=== PATIENT | female | born 1945 | race Caucasian/White ===

== ENCOUNTER 2017-08-13 13:33 | Inpatient (IN) | payer OTHER ==
--- NOTE | 2017-08-13 14:05 | PDOC ---
Attending Attestation - Resident Resident Name: Collin Olivares - HPI HPI: 08/29/17 21:41 Pt presents to the ED complaining of generalized body swelling and shortness of breath. Reports a weight gain of 30 lbs and a elevation in her creatinine. patient was sent in by Dr. Louie for admission. - Physicial Exam PE: 08/29/17 21:44 Agree with resident exam. Patient is in no acute distress. Lungs with scattered rales. + 2 pitting edema to knee bilaterally. - Medical Decision Making 08/29/17 21:45 pt presents to the ED after sent in by Dr. Louie for anasarca. BNP is elevated. Will admit for CHF.
--- NOTE | 2017-08-13 14:33 | PDOC ---
History of Present Illness - General Chief Complaint: Congestive Heart Failure Stated Complaint: SOB, CONGESTIVE HEART FAILURE Time Seen by Provider: 08/13/17 13:56 History Source: Patient, Other (Note from sap administrator) Exam Limitations: No Limitations - History of Present Illness Initial Comments: 08/13/17 14:21 The patient is a 71F with a PMH of T2Dm, hypertriglyceridemia, HTN, and hyperuricemia who presents to the ER with complaints of worsening OLIVER, orthopnea , and worsening swelling. The patient was evaluated by Dr. Louie, cardiology, who sent her to the ER for further workup. The patient states that she has had 30 lbs of weight gain over the past month and has had swelling throughout her body in addition to weeping exudates. She denies any fever, chills, cough, numbness, tingling, weakness, CP. She denies any history of CHF. Past History - Past Medical History Allergies/Adverse Reactions: Allergies Allergy/AdvReac Type Severity Reaction Status Date / Time shellfish derived Allergy Verified 08/13/17 13:35 Home Medications: Ambulatory Orders Alendronate Sodium [Fosamax] 10 mg PO WEEKLY 09/19/15 Allopurinol [Zyloprim -] 100 mg PO DAILY 09/19/15 Amlodipine Besylate [Norvasc -] 10 mg PO DAILY 09/19/15 Fenofibrate,Micronized [Fenofibrate] 134 mg PO DAILY 09/19/15 Gabapentin [Neurontin -] 100 mg PO DAILY 09/19/15 Ibuprofen [Advil -] 400 mg PO PRN 09/19/15 Insulin Aspart [Novolog Flexpen] 100 unit SQ BID 09/19/15 Magnesium Oxide/Magnesium [Magnesium 300 mg Capsule] 1 mg PO DAILY 09/19/15 Multivitamin with Minerals [Icaps Plus] 1 each PO DAILY 09/19/15 Potassium 1 mg PO DAILY 09/19/15 Sitagliptin Phos/Metformin HCl [Janumet 50-1,000 mg Tablet] 1 each PO DAILY Omeprazole [Prilosec] 40 mg PO DAILY #60 capsule. 09/20/15 Anemia: No Asthma: No Cancer: Yes (CERVICAL, rt leg melanoma) Cardiac Disorders: No CVA: No COPD: No CHF: No Dementia: No Diabetes: Yes (diabetic neuropathy) GI Disorders: Yes (GASTRIC POLYPS) Disorders: Yes (ACUTE CKD) HTN: Yes Hypercholesterolemia: Yes Liver Disease: No Seizures: No Thyroid Disease: Yes - Surgical History Abdominal Surgery: No Appendectomy: Yes Cardiac Surgery: No Cholecystectomy: Yes Lung Surgery: No Neurologic Surgery: No Orthopedic Surgery: No - Suicide/Smoking/Psychosocial Hx Smoking History: Never smoked Have you smoked in the past 12 months: No Information on smoking cessation initiated: No Hx Alcohol Use: No Drug/Substance Use Hx: No Substance Use Type: None Hx Substance Use Treatment: No Review of Systems - Review of Systems Able to Perform ROS?: Yes Comments:: 08/13/17 15:28 GENERAL/CONSTITUTIONAL: No fever or chills. No weakness. HEAD, EYES, EARS, NOSE AND THROAT: No change in vision. No ear pain or discharge. No sore throat. CARDIOVASCULAR: Positive for OLIVER, orthopnea. No chest pain, palpitations, or lightheadedness. RESPIRATORY: No cough, wheezing, or hemoptysis. GASTROINTESTINAL: No nausea, vomiting, diarrhea, constipation, or abdominal pain. GENITOURINARY: No dysuria, frequency, hematuria, or change in urination. MUSCULOSKELETAL: No joint or muscle swelling or pain. No neck or back pain. SKIN: Positive for weeping exudates on legs with diffuse swelling. NEUROLOGIC: No headache, numbness, tingling, weakness, loss of consciousness, or change in strength/sensation. ENDOCRINE: No increased thirst. No abnormal weight change. HEMATOLOGIC/LYMPHATIC: No anemia, easy bleeding, or history of blood clots. ALLERGIC/IMMUNOLOGIC: No hives or skin allergy. Is the patient limited Maltese proficient: No *Physical Exam - Vital Signs Last Vital Signs Temp Pulse Resp BP Pulse Ox 98.0 F 82 18 148/68 100 08/13/17 13:36 08/13/17 13:36 08/13/17 13:36 08/13/17 13:36 08/13/17 13:36 - Physical Exam Comments: 08/13/17 15:29 GENERAL: Well developed, well nourished. Awake and alert. No acute distress. HEENT: Normocephalic, atraumatic. Hearing grossly normal. Moist mucous membranes. PERRLA, EOMI. No conjunctival pallor. Sclera are non-icteric. NECK: Supple. Full ROM. CARDIOVASCULAR: Regular rate and rhythm. No murmurs, rubs, or gallops. Distal pulses are 2+ and symmetric. PULMONARY: No evidence of respiratory distress. Lungs clear to auscultation bilaterally. No wheezing, rales or rhonchi. ABDOMINAL: Soft. Non-tender. Non-distended. No rebound or guarding. MUSCULOSKELETAL: Normal range of motion at all joints. No bony deformities or tenderness. EXTREMITIES: No cyanosis. No clubbing. 3-4+ edema in LE, 1+ in abdomen. Weeping exudates present. No calf tenderness. SKIN: Warm and dry. Normal capillary refill. No rashes. No jaundice. NEUROLOGICAL: Alert, awake, appropriate. Cranial nerves 2-12 intact. Normal speech. Gait is normal without ataxia. PSYCHIATRIC: Cooperative. Good eye contact. Appropriate mood and affect. ED Treatment Course - LABORATORY CBC & Chemistry Diagram: 08/13/17 14:46 08/13/17 14:46 - RADIOLOGY Radiology Studies Ordered: Category Date Time Status CHEST X-RAY PORTABLE* [RAD] Stat Radiology 08/13/17 14:20 Ordered Medical Decision Making - Medical Decision Making 08/13/17 15:31 The patient is a 71F with a PMH of HTN, T2DM, and hypertriglyceridiemia who presents from Dr. Louie's office for further evaluation of newly diagnosed CHF. The patient has had an increase in her Cr over the past 2 weeks. Will redraw labs, order CXR, and monitor patient closely. 08/13/17 16:22 BNP significant for 1100. Cr at 2.0 down from 2.2 on 08/12. Will give [address] Rogers paged for admission. 08/13/17 16:39 I have endorsed the patient to Dr. Rogers for admission. Will consult Dr. Louie. *DC/Admit/Observation/Transfer Diagnosis at time of Disposition: CHF (congestive heart failure) Qualifiers: Heart failure type: unspecified Heart failure chronicity: unspecified Qualified Code(s): I50.9 - Heart failure, unspecified - Discharge Dispostion Condition at time of disposition: Stable Decision to Admit order: Yes - Referrals Referrals: Vamshi Rogers MD [Primary Care Provider] - - Patient Instructions - Post Discharge Activity
--- NOTE | 2017-08-13 14:55 | EKG ---
Test Reason : Blood Pressure : / mmHG Vent. Rate : 077 BPM Atrial Rate : 077 BPM P-R Int : 184 ms QRS Dur : 086 ms QT Int : 374 ms P-R-T Axes : 044 -58 061 degrees QTc Int : 423 ms NORMAL SINUS RHYTHM LEFT AXIS DEVIATION LOW VOLTAGE QRS POSSIBLE anterior infarct ABNORMAL ECG Confirmed by MD Dereck, Alan ([id number]) on 08/13/2017 2:55:29 PM Referred By: Confirmed By:Alan Harden MD
[2017-08-13 15:13] LABS: BASO % 0.7 % (0-2.0); EOS % 4.1 % (0-4.5); HEMATOCRIT 37.6 % (32.4-45.2); HEMOGLOBIN 12.6 GM/dL (10.7-15.3); LYMPH % 21.9 % (8-40); MCH 29.8 pg (25.7-33.7); MCHC 33.4 g/dl (32.0-36.0); MEAN CELL VOLUME 89.1 fl (80-96); MEAN PLT VOLUME 8.5 fl (7.5-11.1); MONO % 9.8 % (3.8-10.2); NEUT % 63.5 % (42.8-82.8); PLATELET COUNT 233 K/MM3 (134-434); RBC 4.22 M/mm3 (3.60-5.2); RDW 15.4 % (11.6-15.6); WHITE BLOOD COUNT 6.5 K/mm3 (4.0-10.0)
[2017-08-13 15:45] LABS: INR 1.13 (0.82-1.09); PROTHROMBIN TIME (PATIENT) 12.8 SEC (9.7-13.0)
[2017-08-13 15:58] LABS: ALBUMIN 1.4 g/dl (3.4-5.0); ANION GAP 5 (8-16); BLOOD UREA NITROGEN 40 mg/dL (7-18); CALCIUM 7.6 mg/dL (8.5-10.1); CHLORIDE 112 mmol/L (98-107); CO2 26 mmol/L (21-32); GLUCOSE,RANDOM 92 mg/dL (74-106); SGPT/ALT 17 U/L (12-78); SODIUM 143 mmol/L (136-145)
[2017-08-13 16:02] LABS: ALK PHOS 46 U/L (45-117); BILIRUBIN,TOTAL 0.2 mg/dL (0.2-1.0); N-TERMINAL BNP 1100.94 pg/ml (5-125); TOT PROT 4.6 g/dl (6.4-8.2)
[2017-08-13 16:05] LABS: POTASSIUM 5.6 mmol/L (3.5-5.1); SGOT/AST 28 U/L (15-37)
[2017-08-13] MEDS ORDERED: FUROSEMIDE 40 MG/4 ML INJECTABLE VIAL IVPUSH ONE (16:22)
[2017-08-13] MEDS ORDERED: FUROSEMIDE 40 MG/4 ML INJECTABLE VIAL ONE (16:56)
--- NOTE | 2017-08-13 18:58 | CON.CARD ---
Consult Consult Specialty:: Cardiology Referred by:: Vamshi Rogers MD Reason for Consultation:: Anasarca despite oral diuretics - History of Present Illness Chief Complaint: Dyspnea on exertion, lower extremity edema History of Present Illness: 71-year-old female with cardiovascular risk factors of insulin- dependent type 2 diabetes mellitus, hypertriglyceridemia, hypertension, hyperuricemia initially reported increasing dyspnea on exertion, orthopnea, paroxysmal nocturnal dyspnea, bilateral lower extremity edema and inadvertent weight gain over 20 lbs last several weeks, she admitted to taking fenoprofen for pain since discontinued. She denies chest tightness, near or true syncope, palpitations, reports medication and diet compliance. She was initially started on Lasix 40 bid, found to be hypothyroid, reported cold intolerance, started synthroid 50 qd, but dose decreased due to abdominal discomfort and diarrhea. Has not improved on oral diuretics and referred to hospital for IV diuresis. - History Source History Provided By: Patient Limitations to Obtaining History: No Limitations - Past Medical History Cardio/Vascular: Yes: HTN, Hyperlipdemia Endocrine: Yes: Diabetes Mellitus - Alcohol/Substance Use Hx Alcohol Use: No - Smoking History Smoking history: Never smoked Have you smoked in the past 12 months: No Home Medications - Allergies Allergies/Adverse Reactions: Allergies Allergy/AdvReac Type Severity Reaction Status Date / Time shellfish derived Allergy Verified 08/13/17 13:35 - Home Medications Home Medications: Ambulatory Orders Alendronate Sodium [Fosamax] 10 mg PO WEEKLY 09/19/15 Allopurinol [Zyloprim -] 100 mg PO DAILY 09/19/15 Amlodipine Besylate [Norvasc -] 10 mg PO DAILY 09/19/15 Fenofibrate,Micronized [Fenofibrate] 134 mg PO DAILY 09/19/15 Gabapentin [Neurontin -] 100 mg PO DAILY 09/19/15 Ibuprofen [Advil -] 400 mg PO PRN 09/19/15 Insulin Aspart [Novolog Flexpen] 100 unit SQ BID 09/19/15 Magnesium Oxide/Magnesium [Magnesium 300 mg Capsule] 1 mg PO DAILY 09/19/15 Multivitamin with Minerals [Icaps Plus] 1 each PO DAILY 09/19/15 Potassium 1 mg PO DAILY 09/19/15 Sitagliptin Phos/Metformin HCl [Janumet 50-1,000 mg Tablet] 1 each PO DAILY Omeprazole [Prilosec] 40 mg PO DAILY #60 capsule. 09/20/15 Review of Systems - Review of Systems Cardiovascular: reports: Edema, Shortness of Breath Respiratory: reports: Exercise Intolerance, SOB on Exertion Vital Signs: Vital Signs Temperature 98.0 F 08/13/17 13:36 Pulse Rate 82 08/13/17 13:36 Respiratory Rate 18 08/13/17 13:36 Blood Pressure 148/68 08/13/17 13:36 O2 Sat by Pulse Oximetry (%) 98 08/13/17 15:06 Constitutional: Yes: No Distress, Calm Neck: Yes: Supple Respiratory: Yes: Regular, Diminished, Rales Gastrointestinal: Yes: Abdomen, Obese, Distention Cardiovascular: Yes: Regular Rate and Rhythm JVD: No Carotid Bruit: No Heart Sounds: Yes: S1, S2 Murmur: Yes: Systolic Murmur, Grade 1 Edema: Yes Edema: LLE: 3+, RLE: 3+ - Other Data Labs, Other Data: CBC, BMP 08/13/17 14:46 08/13/17 14:46 INR, PTT INR 1.13 (0.82-1.09) 08/13/17 14:46 Troponin, BNP 08/13/17 14:46 Troponin I < 0.02 B-Natriuretic Peptide 1100.94 H Troponin, BNP 08/13/17 14:46 Troponin I < 0.02 B-Natriuretic Peptide 1100.94 H NSR LAD Echo: Report Reviewed Imaging - Results Chest X-ray: Report Reviewed (Mild congestion) EKG: Report Reviewed (NSR LAD) Problem List - Problems (1) Acute on chronic diastolic (congestive) heart failure Code(s): I50.33 - ACUTE ON CHRONIC DIASTOLIC (CONGESTIVE) HEART FAILURE (2) Hypothyroidism Code(s): E03.9 - HYPOTHYROIDISM, UNSPECIFIED Qualifiers: Hypothyroidism type: unspecified Qualified Code(s): E03.9 - Hypothyroidism , unspecified (3) Mbemt-xp-upyjzki kidney injury Code(s): N17.9 - ACUTE KIDNEY FAILURE, UNSPECIFIED; N18.9 - CHRONIC KIDNEY DISEASE, UNSPECIFIED (4) Insulin dependent diabetes mellitus Code(s): E11.9 - TYPE 2 DIABETES MELLITUS WITHOUT COMPLICATIONS; Z79.4 - USP (CURRENT) USE OF INSULIN (5) Hypertensive cardiomyopathy Code(s): I11.9 - HYPERTENSIVE HEART DISEASE WITHOUT HEART FAILURE; I43 - CARDIOMYOPATHY IN DISEASES CLASSIFIED ELSEWHERE Qualifiers: Heart failure presence: with heart failure Qualified Code(s): I11.0 - Hypertensive heart disease with heart failure; I43 - Cardiomyopathy in diseases classified elsewhere; I43 - Cardiomyopathy in diseases classified elsewhere; I43 - Cardiomyopathy in diseases classified elsewhere; I43 - Cardiomyopathy in diseases classified elsewhere (6) Mixed hyperlipidemia Code(s): E78.2 - MIXED HYPERLIPIDEMIA (7) Hyperuricemia Code(s): E79.0 - HYPERURICEMIA W/O SIGNS OF INFLAM ARTHRIT AND TOPHACEOUS DIS Assessment/Plan 1. Acute diastolic heart failure referable to NSAID and 2. Hypothyroidism (untreated) 3. Acute on CKD with hyperkalemia referable to #1 4. Insulin-dependent type 2 diabetes mellitus 5. Hypertension 6. Mixed hyperlipidemia 7. Hyperuricemia RECOMMENDATIONS: 1. Continue Synthroid 50 ug daily as tolerated per TSH, Norvasc 5 qd, ASA 81 qd 2. F/u echocardiogram to assess LV and valve fxn already performed as outpatient 3. IV diuresis with monitor diuretic response, renal function and electrolytes 4. Hold Valsartan pending resolution of acute on chronic kidney injury and hyperkalemia. 5. Will address lipid abnormalities once euthyroid 6. Thank you for consultative opportunity
[2017-08-14] MEDS: LEVOTHYROXINE NA 50 MCG TABLET (FP) PO SCH (06:02)
[2017-08-14] MEDS: FUROSEMIDE 40 MG/4 ML INJECTABLE VIAL IVPUSH SCH ×2 (06:02→15:27)
--- NOTE | 2017-08-14 09:38 | HP ---
DATE OF ADMISSION: DATE OF DICTATION: 08/14/2017 This is a 71-year-old female known to have diabetes, hypertension, being followed by Dr. Louie with some weight gain and exertional dyspnea, so was sent to the emergency room, with a diagnosis of CHF. She was found to have leg edema, renal insufficiency, and CHF so got admitted. This morning she is saying that she is feeling better. PHYSICAL EXAMINATION: Vital Signs: BP 150/90, pulse 72, respirations 20, temperature 98. When she came in, her blood pressure was 170/85. HEENT: Unremarkable. Neck: Supple. No JVD. Lungs: Few bibasilar rales present. Heart: S1, S2 normal. No S3, S4. Abdomen: Soft and edematous. Legs: Edema present with cellulitis, right lower extremity. Neurologic: Examination grossly normal. LABORATORY REPORTS: WBC 6.5, hemoglobin 12.6, hematocrit 37. Chemistry: Sodium 143, potassium 5.6, chloride 112, BUN 40, creatinine 2. CPK 2794. Troponin negative. B-peptide 1100. TSH pending. Chest x-ray: Pulmonary congestion. EKG: Normal sinus rhythm. Low voltage QRS. Old anterior infarct. IMPRESSION: 1. Congestive heart failure. 2. Renal insufficiency. 3. Diabetes. 4. Obesity. 5. Cellulitis, right leg. PLAN: Cardiology consult, Dr. Louie. Nephrology, Dr. Azevedo. Will start antibiotics for cellulitis. Continue other medicines. Maverick [id number]
[2017-08-14] MEDS ORDERED: ceFAZolin SODIUM 1 GM VIAL ONE ×2 (09:45→17:23)
[2017-08-14] MEDS ORDERED: DEXTROSE 5%-WATER - 50 ML IVPB ONE ×2 (09:46→17:23)
[2017-08-14] MEDS: amLODIPine BESYLATE 5 MG TABLET (FP) PO SCH (10:35)
[2017-08-14] MEDS: ASPIRIN 81 MG CHEWABLE TABLETS PO SCH (10:35)
[2017-08-14] MEDS: HEPARIN NA (PORCINE) 5,000 UNITS/ML 1ML VIAL SQ SCH ×2 (10:35→21:50)
[2017-08-14] MEDS: CEFAZOLIN 1 GM in DEXTROSE 5%-WATER - 50 ML IVPB SCH ×2 (10:35→17:43)
[2017-08-14 10:42] LABS: CHLORIDE 111 mmol/L (98-107); POTASSIUM 5.5 mmol/L (3.5-5.1); SODIUM 144 mmol/L (136-145)
[2017-08-14] MEDS ORDERED: INSULIN SLIDING SCALE (NOVOLOG) 1 VIAL SQ SCH (11:00)
--- NOTE | 2017-08-14 11:07 | PN ---
Progress Note, Physician History of Present Illness: Brisk response after initiation of IV diuresis. Still with anasarca. - Current Medication List Current Medications: Active Medications Amlodipine Besylate (Norvasc -) 5 mg PO DAILY [facility] Last Admin: 08/14/17 10:35 Dose: 5 mg Aspirin (Asa -) 81 mg PO DAILY [facility] Last Admin: 08/14/17 10:35 Dose: 81 mg Furosemide (Lasix Injection -) 40 mg IVPUSH BID@0600,1400 [facility] Last Admin: 08/14/17 06:02 Dose: 40 mg Heparin Sodium (Porcine) (Heparin -) 5,000 unit SQ BID [facility] Last Admin: 08/14/17 10:35 Dose: 5,000 unit Cefazolin Sodium 1 gm/ (Dextrose) 50 mls @ 100 mls/hr IVPB Q8H-IV [facility] Last Admin: 08/14/17 10:35 Dose: 100 mls/hr Insulin Aspart (Novolog Vial Sliding Scale -) 1 vial SQ ACHS [facility] PRN Reason: Protocol Levothyroxine Sodium (Synthroid -) 50 mcg PO DAILY@0700 [facility] Last Admin: 08/14/17 06:02 Dose: 50 mcg - Objective Vital Signs: Vital Signs Temperature 98 F 08/14/17 10:29 Pulse Rate 79 08/14/17 10:29 Respiratory Rate 20 08/14/17 10:29 Blood Pressure 152/92 08/14/17 10:29 O2 Sat by Pulse Oximetry (%) 95 08/14/17 09:00 Constitutional: Yes: No Distress, Calm Neck: Yes: Supple Cardiovascular: Yes: Regular Rate and Rhythm Respiratory: Yes: Regular, Diminished Gastrointestinal: Yes: Distention Edema: Yes Edema: LLE: 3+, RLE: 3+ Labs: CBC, BMP 08/13/17 14:46 INR, PTT INR 1.13 (0.82-1.09) 08/13/17 14:46 - ....Imaging EKG: Report Reviewed (Tele: NSR) Problem List - Problems (1) Acute on chronic diastolic (congestive) heart failure Code(s): I50.33 - ACUTE ON CHRONIC DIASTOLIC (CONGESTIVE) HEART FAILURE (2) Hypothyroidism Code(s): E03.9 - HYPOTHYROIDISM, UNSPECIFIED Qualifiers: Hypothyroidism type: unspecified Qualified Code(s): E03.9 - Hypothyroidism , unspecified (3) Bxaln-ge-aflrkor kidney injury Code(s): N17.9 - ACUTE KIDNEY FAILURE, UNSPECIFIED; N18.9 - CHRONIC KIDNEY DISEASE, UNSPECIFIED (4) Insulin dependent diabetes mellitus Code(s): E11.9 - TYPE 2 DIABETES MELLITUS WITHOUT COMPLICATIONS; Z79.4 - GROUP HOME (CURRENT) USE OF INSULIN (5) Hypertensive cardiomyopathy Code(s): I11.9 - HYPERTENSIVE HEART DISEASE WITHOUT HEART FAILURE; I43 - CARDIOMYOPATHY IN DISEASES CLASSIFIED ELSEWHERE Qualifiers: Heart failure presence: with heart failure Qualified Code(s): I11.0 - Hypertensive heart disease with heart failure; I43 - Cardiomyopathy in diseases classified elsewhere; I43 - Cardiomyopathy in diseases classified elsewhere; I43 - Cardiomyopathy in diseases classified elsewhere; I43 - Cardiomyopathy in diseases classified elsewhere (6) Mixed hyperlipidemia Code(s): E78.2 - MIXED HYPERLIPIDEMIA (7) Hyperuricemia Code(s): E79.0 - HYPERURICEMIA W/O SIGNS OF INFLAM ARTHRIT AND TOPHACEOUS DIS Assessment/Plan Echo: August 09, 2017 Normal LV fxn, ao sclerosis, mild [place], [place], [place], [place], impaired relaxation with elevated filling pressures, diastolic dysfunction, mild LVH, no effusion 1. Acute diastolic heart failure referable to NSAID and 2. Hypothyroidism (untreated) 3. Acute on CKD with hyperkalemia referable to #1 4. Insulin-dependent type 2 diabetes mellitus 5. Hypertension 6. Mixed hyperlipidemia 7. Hyperuricemia RECOMMENDATIONS: 1. Continue Synthroid 50 ug daily as tolerated per TSH, Norvasc 5 qd, ASA 81 qd 2. F/u echocardiogram to assess LV and valve fxn already performed as outpatient 3. IV diuresis with monitor diuretic response, renal function and electrolytes 4. Hold Valsartan pending resolution of acute on chronic kidney injury and hyperkalemia. 5. Will address lipid abnormalities once euthyroid 6. DVT prophylaxis, empiric abx for cellulitis
[2017-08-14 12:08] LABS: ANION GAP 8 (8-16); BLOOD UREA NITROGEN 40 mg/dL (7-18); CALCIUM 8.1 mg/dL (8.5-10.1); CO2 25 mmol/L (21-32); CREATININE 2.1 mg/dL (0.55-1.02); GLUCOSE,RANDOM 137 mg/dL (74-106)
--- NOTE | 2017-08-14 12:36 | CONSULT ---
Consult - text type - Consultation Consultation Note: Renal Consult for PRECIOUS This is a 71 year old woman wit PMhx of Hypertension x 30 + years, DM Type 2 on insulin, Hypothyrodism, Hyperurecemia, Obesity who presented with SOB/OLIVER and increasing swelling and admitted for acute HF with PRECIOUS. Pt denies any history of CKD or kidney stones. Denies any flank pain or difficulty urinating. Was taking NSIADs chronically at home for management of right arm pain. No dark urine, dysuria. Pt recently stated on Lasix for management of LE edema. No recent Abx use, no rash. PMhx: as above Allergies: NKDA Family hx: NC Social Hx: No T/A/D ROS: as per HPI Home Medications Medication Instructions Recorded Alendronate Sodium [Fosamax] 10 mg PO WEEKLY 09/19/15 Allopurinol [Zyloprim -] 100 mg PO DAILY 09/19/15 Amlodipine Besylate [Norvasc -] 10 mg PO DAILY 09/19/15 Fenofibrate,Micronized 134 mg PO DAILY 09/19/15 [Fenofibrate] Gabapentin [Neurontin -] 100 mg PO DAILY 09/19/15 Multivitamin with Minerals [Icaps 1 each PO DAILY 09/19/15 Plus] Sitagliptin Phos/Metformin HCl 1 each PO DAILY 09/19/15 [Janumet 50-1,000 mg Tablet] Omeprazole [Prilosec] 40 mg PO DAILY #60 capsule. 09/20/15 Insulin (Novolog 70/30) [Novolog 18 units SQ BIDAC 08/13/17 Mix 70/30 Flexpen -] Vital Signs Temperature 98 F 08/14/17 10:29 Pulse Rate 79 08/14/17 10:29 Respiratory Rate 20 08/14/17 10:29 Blood Pressure 152/92 08/14/17 10:29 O2 Sat by Pulse Oximetry (%) 95 08/14/17 09:00 Intake & Output 08/11/17 08/12/17 08/13/17 08/14/17 23:59 23:59 23:59 23:59 Intake Total 510 Output Total 1300 Balance -790 Weight 147.418 kg 146.329 kg NAD awake and alert MMM, No JVD Neck supple RRR, No M/R Dec BS at right lung base, no wheeze, rales soft, obsese, NT/ND + LE edema, no cyanosis or clubbing CBC, BMP 08/13/17 14:46 08/14/17 06:25 Current Medications Amlodipine Besylate (Norvasc -) 5 mg PO DAILY [facility] Last Admin: 08/14/17 10:35 Dose: 5 mg Aspirin (Asa -) 81 mg PO DAILY [facility] Last Admin: 08/14/17 10:35 Dose: 81 mg Furosemide (Lasix Injection -) 40 mg IVPUSH BID@0600,1400 [facility] Last Admin: 08/14/17 06:02 Dose: 40 mg Furosemide (Lasix Injection -) 40 mg IVPUSH ONCE ONE Stop: 08/14/17 17:01 Heparin Sodium (Porcine) (Heparin -) 5,000 unit SQ BID [facility] Last Admin: 08/14/17 10:35 Dose: 5,000 unit Cefazolin Sodium 1 gm/ (Dextrose) 50 mls @ 100 mls/hr IVPB Q8H-IV [facility] Last Admin: 08/14/17 10:35 Dose: 100 mls/hr Insulin Aspart (Novolog Vial Sliding Scale -) 1 vial SQ ACHS [facility] PRN Reason: Protocol Levothyroxine Sodium (Synthroid -) 50 mcg PO DAILY@0700 [facility] Last Admin: 08/14/17 06:02 Dose: 50 mcg This is a 71 year old woman wit PMhx of Hypertension x 30 + years, DM Type 2 on insulin, Hypothyrodism, Hyperurecemia, Obesity who presented with SOB/OLIVER and increasing swelling and admitted for acute HF with PRECIOUS. #Acute Kidney injury likely due to renal hypoprofusion/ischemia due to NSAIDs + diuretics vs. AIN vs. obstruction #Anasarca/Acute HF #Hypertension #Hyperkalemia due to NSAIDs + renal insufficiency Check urine studies for FeUrea, UPCR Renal US to access kidney size and structure Continue Lasix 40mg IV BID Low K diet for now Repeat BMP in the evening to monitor hyperkalemia withhold any MARY JANE/ARB/NASIDs for now Continue Norvasc, can titrate to goal BP < 140/90 Low salt diet oral water intake as per thirst Thank you Will follow Arvind Lemus DO
[2017-08-14] MEDS: INSULIN SLIDING SCALE (NOVOLOG) 1 VIAL SQ SCH ×3 (15:26→21:51)
[2017-08-14 15:58] LABS: ANION GAP 5 (8-16); BLOOD UREA NITROGEN 39 mg/dL (7-18); CALCIUM 7.7 mg/dL (8.5-10.1); CHLORIDE 111 mmol/L (98-107); CO2 27 mmol/L (21-32); CREATININE 2.1 mg/dL (0.55-1.02); GLUCOSE,RANDOM 114 mg/dL (74-106); POTASSIUM 5.2 mmol/L (3.5-5.1); SODIUM 143 mmol/L (136-145)
[2017-08-14] MEDS ORDERED: FUROSEMIDE 40 MG/4 ML INJECTABLE VIAL IVPUSH ONE (17:00)
[2017-08-14 18:29] LABS: URINE APPEARANCE CLEAR; URINE BILIRUBIN NEGATIVE (<2.0 mg/dL); URINE COLOR LTYELLOW; URINE GLUCOSE (UA) 1+ (NEGATIVE); URINE KETONE NEGATIVE (NEGATIVE); URINE LEUK ESTERASE NEGATIVE (NEGATIVE); URINE NITRITE NEGATIVE (NEGATIVE); URINE UROBILINOGEN NEGATIVE mg/dL (0.2-1.0)
[2017-08-14 18:45] LABS: URINE PROTEIN 3+ (NEGATIVE)
[2017-08-14 19:09] LABS: URINE CREATININE 55.3 mg/dL (20-320)
[2017-08-14] MEDS ORDERED: GABAPENTIN 100 MG CAPSULE (FP) PO SCH (19:30)
[2017-08-14] MEDS: GABAPENTIN 300 MG CAPSULE (FP) PO SCH (19:56)
[2017-08-15] MEDS ORDERED: ceFAZolin SODIUM 1 GM VIAL ONE ×3 (01:21→17:53)
[2017-08-15] MEDS ORDERED: DEXTROSE 5%-WATER - 50 ML IVPB ONE ×3 (01:21→17:53)
[2017-08-15] MEDS: CEFAZOLIN 1 GM in DEXTROSE 5%-WATER - 50 ML IVPB SCH ×3 (01:37→18:17)
[2017-08-15] MEDS: LEVOTHYROXINE NA 50 MCG TABLET (FP) PO SCH (06:07)
[2017-08-15] MEDS: FUROSEMIDE 40 MG/4 ML INJECTABLE VIAL IVPUSH SCH ×3 (06:07→21:12)
[2017-08-15] MEDS: INSULIN SLIDING SCALE (NOVOLOG) 1 VIAL SQ SCH ×4 (06:07→23:00)
[2017-08-15] MEDS ORDERED: INSULIN (NOVOLOG) ASPART 100 UNITS/ML 10ML VIAL ONE ×3 (06:55→21:04)
[2017-08-15 07:41] LABS: ALBUMIN 1.5 g/dl (3.4-5.0); ANION GAP 7 (8-16); BLOOD UREA NITROGEN 37 mg/dL (7-18); CALCIUM 7.7 mg/dL (8.5-10.1); CHLORIDE 110 mmol/L (98-107); CO2 24 mmol/L (21-32); GLUCOSE,RANDOM 134 mg/dL (74-106); MAGNESIUM 2.3 mg/dL (1.8-2.4); PHOSPHOROUS 5.2 mg/dL (2.5-4.9); POTASSIUM 4.8 mmol/L (3.5-5.1); SGOT/AST 24 U/L (15-37); SGPT/ALT 15 U/L (12-78); SODIUM 141 mmol/L (136-145)
[2017-08-15 07:42] LABS: ALK PHOS 46 U/L (45-117); BILIRUBIN,TOTAL 0.2 mg/dL (0.2-1.0); TOT PROT 4.9 g/dl (6.4-8.2)
--- NOTE | 2017-08-15 09:11 | PN ---
Progress Note, Physician Chief Complaint: Feels better History of Present Illness: navid Sommers nephrology consult appreciated - Current Medication List Current Medications: Active Medications Amlodipine Besylate (Norvasc -) 5 mg PO DAILY [facility] Last Admin: 08/14/17 10:35 Dose: 5 mg Aspirin (Asa -) 81 mg PO DAILY [facility] Last Admin: 08/14/17 10:35 Dose: 81 mg Furosemide (Lasix Injection -) 40 mg IVPUSH BID@0600,1400 [facility] Last Admin: 08/15/17 06:07 Dose: 40 mg Gabapentin (Neurontin -) 300 mg PO DAILY [facility] Last Admin: 08/14/17 19:56 Dose: 300 mg Heparin Sodium (Porcine) (Heparin -) 5,000 unit SQ BID [facility] Last Admin: 08/14/17 21:50 Dose: 5,000 unit Cefazolin Sodium 1 gm/ (Dextrose) 50 mls @ 100 mls/hr IVPB Q8H-IV [facility] Last Admin: 08/15/17 01:37 Dose: 100 mls/hr Insulin Aspart (Novolog Vial Sliding Scale -) 1 vial SQ ACHS [facility] PRN Reason: Protocol Last Admin: 08/15/17 06:07 Dose: Not Given Levothyroxine Sodium (Synthroid -) 50 mcg PO DAILY@0700 [facility] Last Admin: 08/15/17 06:07 Dose: 50 mcg - Objective Vital Signs: Vital Signs Temperature 98.5 F 08/15/17 06:00 Pulse Rate 85 08/15/17 06:00 Respiratory Rate 24 08/15/17 06:00 Blood Pressure 175/88 08/15/17 06:00 O2 Sat by Pulse Oximetry (%) 96 08/14/17 21:00 Constitutional: Yes: No Distress Eyes: Yes: WNL HENT: Yes: WNL Neck: Yes: WNL Cardiovascular: Yes: WNL Respiratory: Yes: WNL Gastrointestinal: Yes: Distention ...Rectal Exam: Yes: Deferred Breast(s): Yes: WNL Musculoskeletal: Yes: Muscle Weakness Edema: Yes Edema: LLE: 1+, RLE: 1+ Wound/Incision: Yes: Open to air Psychiatric: Yes: Alert Labs: CBC, BMP 08/13/17 14:46 08/15/17 05:35 INR, PTT INR 1.13 (0.82-1.09) 08/13/17 14:46 Assessment/Plan Wt is down to 319lbs Continue IV lasix
[2017-08-15] MEDS: amLODIPine BESYLATE 5 MG TABLET (FP) PO SCH (09:50)
[2017-08-15] MEDS: HEPARIN NA (PORCINE) 5,000 UNITS/ML 1ML VIAL SQ SCH ×2 (09:50→21:12)
[2017-08-15] MEDS: GABAPENTIN 300 MG CAPSULE (FP) PO SCH (09:50)
[2017-08-15] MEDS: ASPIRIN 81 MG CHEWABLE TABLETS PO SCH (09:50)
--- NOTE | 2017-08-15 09:53 | PN ---
Progress Note, Physician History of Present Illness: Brisk response after initiation of IV diuresis. Anasarca improving. - Current Medication List Current Medications: Active Medications Amlodipine Besylate (Norvasc -) 5 mg PO DAILY [facility] Last Admin: 08/15/17 09:50 Dose: 5 mg Aspirin (Asa -) 81 mg PO DAILY [facility] Last Admin: 08/15/17 09:50 Dose: 81 mg Furosemide (Lasix Injection -) 40 mg IVPUSH BID@0600,1400 [facility] Last Admin: 08/15/17 06:07 Dose: 40 mg Gabapentin (Neurontin -) 300 mg PO DAILY [facility] Last Admin: 08/15/17 09:50 Dose: 300 mg Heparin Sodium (Porcine) (Heparin -) 5,000 unit SQ BID [facility] Last Admin: 08/15/17 09:50 Dose: 5,000 unit Cefazolin Sodium 1 gm/ (Dextrose) 50 mls @ 100 mls/hr IVPB Q8H-IV [facility] Last Admin: 08/15/17 09:50 Dose: 100 mls/hr Insulin Aspart (Novolog Vial Sliding Scale -) 1 vial SQ ACHS [facility] PRN Reason: Protocol Last Admin: 08/15/17 06:07 Dose: Not Given Levothyroxine Sodium (Synthroid -) 50 mcg PO DAILY@0700 [facility] Last Admin: 08/15/17 06:07 Dose: 50 mcg Silver Sulfadiazine (Silvadene -) 1 applic TP DAILY [facility] - Objective Vital Signs: Vital Signs Temperature 98.5 F 08/15/17 06:00 Pulse Rate 85 08/15/17 06:00 Respiratory Rate 24 08/15/17 06:00 Blood Pressure 175/88 08/15/17 06:00 O2 Sat by Pulse Oximetry (%) 96 08/14/17 21:00 Constitutional: Yes: No Distress, Calm Neck: Yes: Supple Cardiovascular: Yes: Regular Rate and Rhythm Respiratory: Yes: Regular, Diminished Gastrointestinal: Yes: Distention Edema: Yes Edema: LLE: 2+, RLE: 2+ Labs: CBC, BMP 08/13/17 14:46 08/15/17 05:35 INR, PTT INR 1.13 (0.82-1.09) 08/13/17 14:46 - ....Imaging EKG: Report Reviewed (Tele: NSR) Problem List - Problems (1) Acute on chronic diastolic (congestive) heart failure Code(s): I50.33 - ACUTE ON CHRONIC DIASTOLIC (CONGESTIVE) HEART FAILURE (2) Hypothyroidism Code(s): E03.9 - HYPOTHYROIDISM, UNSPECIFIED Qualifiers: Hypothyroidism type: unspecified Qualified Code(s): E03.9 - Hypothyroidism , unspecified (3) [id number] kidney injury Code(s): N17.9 - ACUTE KIDNEY FAILURE, UNSPECIFIED; N18.9 - CHRONIC KIDNEY DISEASE, UNSPECIFIED (4) Insulin dependent diabetes mellitus Code(s): E11.9 - TYPE 2 DIABETES MELLITUS WITHOUT COMPLICATIONS; Z79.4 - VEHICLE [employer] (CURRENT) USE OF INSULIN (5) Hypertensive cardiomyopathy Code(s): I11.9 - HYPERTENSIVE HEART DISEASE WITHOUT HEART FAILURE; I43 - CARDIOMYOPATHY IN DISEASES CLASSIFIED ELSEWHERE Qualifiers: Heart failure presence: with heart failure Qualified Code(s): I11.0 - Hypertensive heart disease with heart failure; I43 - Cardiomyopathy in diseases classified elsewhere; I43 - Cardiomyopathy in diseases classified elsewhere; I43 - Cardiomyopathy in diseases classified elsewhere; I43 - Cardiomyopathy in diseases classified elsewhere (6) Mixed hyperlipidemia Code(s): E78.2 - MIXED HYPERLIPIDEMIA (7) Hyperuricemia Code(s): E79.0 - HYPERURICEMIA W/O SIGNS OF INFLAM ARTHRIT AND TOPHACEOUS DIS Assessment/Plan Echo: August 09, 2017 Normal LV fxn, ao sclerosis, mild AR, MR, HI, TR, impaired relaxation with elevated filling pressures, diastolic dysfunction, mild LVH, no effusion 1. Acute diastolic heart failure referable to NSAID and 2. Hypothyroidism 3. Acute on CKD with hyperkalemia and proteinuria referable to #1 4. Insulin-dependent type 2 diabetes mellitus 5. Hypertension 6. Mixed hyperlipidemia 7. Hyperuricemia RECOMMENDATIONS: 1. Continue Synthroid 50 ug daily as tolerated per TSH, Norvasc 5 qd, ASA 81 qd 2. Start carvedilol 6.25 bid with uptitration as tolerated 3. IV diuresis with monitor diuretic response, renal function and electrolytes 4. Hold Valsartan pending resolution of acute on chronic kidney injury and hyperkalemia. 5. Check lipid panel, Ha1c 6. DVT prophylaxis, empiric abx for cellulitis
[2017-08-15] MEDS ORDERED: GABAPENTIN 100 MG CAPSULE (FP) PO SCH (10:00)
[2017-08-15] MEDS: CARVEDILOL 6.25 MG TABLET (FP) PO SCH ×2 (11:08→21:12)
[2017-08-15] MEDS: SILVER SULFADIAZINE 1% TOP CREAM 50 GM JAR TP SCH (12:07)
--- NOTE | 2017-08-15 17:48 | PN ---
Progress Note (short form) - Note Progress Note: Renal Follow up for PRECIOUS vs. CKD Pt seen and examined at the bedside awake and alert no acute complaints sob is improving and pt was able to ambulate up and down the hallway several time no fever, chills making a lot of urine Vital Signs Temperature 98.2 F 08/15/17 14:54 Pulse Rate 72 08/15/17 14:54 Respiratory Rate 18 08/15/17 14:54 Blood Pressure 135/93 08/15/17 14:54 O2 Sat by Pulse Oximetry (%) 96 08/15/17 10:00 Intake & Output 08/12/17 08/13/17 08/14/17 08/15/17 23:59 23:59 23:59 23:59 Intake Total 1730 600 Output Total 3000 2400 Balance -1270 -1800 Weight 147.418 kg 146.329 kg 144.707 kg NAD awake and alert MMM, No JVD Neck supple RRR, No M/R Dec BS at right lung base, no wheeze, rales soft, obsese, NT/ND + LE edema, no cyanosis or clubbing CBC, BMP 08/13/17 14:46 08/15/17 05:35 Current Medications Amlodipine Besylate (Norvasc -) 5 mg PO DAILY [facility] Last Admin: 08/15/17 09:50 Dose: 5 mg Aspirin (Asa -) 81 mg PO DAILY [facility] Last Admin: 08/15/17 09:50 Dose: 81 mg Carvedilol (Coreg -) 6.25 mg PO BID [facility] Last Admin: 08/15/17 11:08 Dose: 6.25 mg Furosemide (Lasix Injection -) 40 mg IVPUSH TID [facility] Last Admin: 08/15/17 14:32 Dose: 40 mg Gabapentin (Neurontin -) 300 mg PO DAILY [facility] Last Admin: 08/15/17 09:50 Dose: 300 mg Heparin Sodium (Porcine) (Heparin -) 5,000 unit SQ BID [facility] Last Admin: 08/15/17 09:50 Dose: 5,000 unit Cefazolin Sodium 1 gm/ (Dextrose) 50 mls @ 100 mls/hr IVPB Q8H-IV [facility] Last Admin: 08/15/17 09:50 Dose: 100 mls/hr Insulin Aspart (Novolog Vial Sliding Scale -) 1 vial SQ ACHS [facility] PRN Reason: Protocol Last Admin: 08/15/17 16:52 Dose: Not Given Levothyroxine Sodium (Synthroid -) 50 mcg PO DAILY@0700 [facility] Last Admin: 08/15/17 06:07 Dose: 50 mcg Silver Sulfadiazine (Silvadene -) 1 applic TP DAILY [facility] Last Admin: 08/15/17 12:07 Dose: 1 applic This is a 71 year old woman wit PMhx of Hypertension x 30 + years, DM Type 2 on insulin, Hypothyrodism, Hyperurecemia, Obesity who presented with SOB/OLIVER and increasing swelling and admitted for acute HF with PRECIOUS. #Acute Kidney injury likely due to renal hypoprofusion/ischemia due to NSAIDs + diuretics vs. AIN vs. obstruction #Anasarca/Acute HF #Hypertension #Hyperkalemia due to NSAIDs + renal insufficiency Renal function stable at this time Urine studies showed a high FeNa (most likely inaccurate in setting of Lasix) and UPCR of 10 given nephrotic range proeteinuria will check JORDON, SPEP, RPR, Anti-DS DNA however most likely etiology is diabetic nephropathy US pending continue IV Lasix would avoid MARY JANE/ARB until off IV Lasix Arvind Lemus DO
[2017-08-15] MEDS ORDERED: PT OWN MED DRAWER 7, Y5N ONE (18:34)
[2017-08-16] MEDS ORDERED: DEXTROSE 5%-WATER - 50 ML IVPB ONE ×3 (00:59→17:17)
[2017-08-16] MEDS ORDERED: ceFAZolin SODIUM 1 GM VIAL ONE ×3 (00:59→17:17)
[2017-08-16] MEDS: CEFAZOLIN 1 GM in DEXTROSE 5%-WATER - 50 ML IVPB SCH ×3 (01:09→17:36)
[2017-08-16] MEDS: LEVOTHYROXINE NA 50 MCG TABLET (FP) PO SCH (06:10)
[2017-08-16] MEDS: FUROSEMIDE 40 MG/4 ML INJECTABLE VIAL IVPUSH SCH ×2 (06:10→14:50)
[2017-08-16] MEDS: INSULIN SLIDING SCALE (NOVOLOG) 1 VIAL SQ SCH ×4 (06:17→21:12)
[2017-08-16 06:56] LABS: BASO % 0.8 % (0-2.0); EOS % 4.7 % (0-4.5); HEMATOCRIT 36.1 % (32.4-45.2); HEMOGLOBIN 11.9 GM/dL (10.7-15.3); LYMPH % 23.9 % (8-40); MCH 29.5 pg (25.7-33.7); MEAN CELL VOLUME 89.2 fl (80-96); MEAN PLT VOLUME 8.4 fl (7.5-11.1); MONO % 8.7 % (3.8-10.2); NEUT % 61.9 % (42.8-82.8); PLATELET COUNT 223 K/MM3 (134-434); RBC 4.05 M/mm3 (3.60-5.2); RDW 14.9 % (11.6-15.6); WHITE BLOOD COUNT 6.6 K/mm3 (4.0-10.0)
[2017-08-16 07:26] LABS: CHLORIDE 105 mmol/L (98-107); POTASSIUM 4.6 mmol/L (3.5-5.1); SODIUM 141 mmol/L (136-145)
[2017-08-16 07:34] LABS: ANION GAP 6 (8-16); BLOOD UREA NITROGEN 40 mg/dL (7-18); CALCIUM 7.8 mg/dL (8.5-10.1); CHOLESTEROL 272 mg/dL (50-200); CO2 30 mmol/L (21-32); CREATININE 2.1 mg/dL (0.55-1.02); GLUCOSE,RANDOM 128 mg/dL (74-106); HDL CHOLESTEROL 35 mg/dL (40-60); MAGNESIUM 2.2 mg/dL (1.8-2.4); TRIGLYCERIDES 294 mg/dL (35-160)
--- NOTE | 2017-08-16 09:10 | PN ---
Progress Note, Physician Chief Complaint: Feels better History of Present Illness: Admitted with generalized edema Ultrasound of kidneys OK ,no hydronephrosis Will order ultra sound of liver - Current Medication List Current Medications: Active Medications Amlodipine Besylate (Norvasc -) 5 mg PO DAILY [facility] Last Admin: 08/15/17 09:50 Dose: 5 mg Aspirin (Asa -) 81 mg PO DAILY [facility] Last Admin: 08/15/17 09:50 Dose: 81 mg Carvedilol (Coreg -) 6.25 mg PO BID [facility] Last Admin: 08/15/17 21:12 Dose: 6.25 mg Furosemide (Lasix Injection -) 40 mg IVPUSH TID [facility] Last Admin: 08/16/17 06:10 Dose: 40 mg Gabapentin (Neurontin -) 300 mg PO DAILY [facility] Last Admin: 08/15/17 09:50 Dose: 300 mg Heparin Sodium (Porcine) (Heparin -) 5,000 unit SQ BID [facility] Last Admin: 08/15/17 21:12 Dose: 5,000 unit Cefazolin Sodium 1 gm/ (Dextrose) 50 mls @ 100 mls/hr IVPB Q8H-IV [facility] Last Admin: 08/16/17 01:09 Dose: 100 mls/hr Insulin Aspart (Novolog Vial Sliding Scale -) 1 vial SQ ACHS [facility] PRN Reason: Protocol Last Admin: 08/16/17 06:17 Dose: Not Given Levothyroxine Sodium (Synthroid -) 50 mcg PO DAILY@0700 [facility] Last Admin: 08/16/17 06:10 Dose: 50 mcg Silver Sulfadiazine (Silvadene -) 1 applic TP DAILY [facility] Last Admin: 08/15/17 12:07 Dose: 1 applic - Objective Vital Signs: Vital Signs Temperature 98.4 F 08/16/17 06:00 Pulse Rate 70 08/16/17 06:00 Respiratory Rate 20 08/16/17 06:00 Blood Pressure 143/103 08/16/17 06:00 O2 Sat by Pulse Oximetry (%) 95 08/15/17 21:00 Constitutional: Yes: Anxious Eyes: Yes: WNL HENT: Yes: WNL Neck: Yes: WNL Cardiovascular: Yes: Regular Rate and Rhythm Respiratory: Yes: Regular Gastrointestinal: Yes: Normal Bowel Sounds ...Rectal Exam: Yes: Deferred Extremities: Yes: Erythema Peripheral Pulses WNL: Yes Integumentary: Yes: WNL Neurological: Yes: Alert Psychiatric: Yes: Alert Labs: CBC, BMP 08/16/17 05:35 08/16/17 05:35 INR, PTT INR 1.13 (0.82-1.09) 08/13/17 14:46 Assessment/Plan Will discuss with Dr Lemus regarding adding Xeroxellin
[2017-08-16] MEDS: amLODIPine BESYLATE 5 MG TABLET (FP) PO SCH (10:23)
[2017-08-16] MEDS: HEPARIN NA (PORCINE) 5,000 UNITS/ML 1ML VIAL SQ SCH ×2 (10:23→21:12)
[2017-08-16] MEDS: ASPIRIN 81 MG CHEWABLE TABLETS PO SCH (10:23)
[2017-08-16] MEDS: CARVEDILOL 6.25 MG TABLET (FP) PO SCH ×2 (10:23→21:12)
[2017-08-16] MEDS: SILVER SULFADIAZINE 1% TOP CREAM 50 GM JAR TP SCH (10:26)
[2017-08-16] MEDS: GABAPENTIN 300 MG CAPSULE (FP) PO SCH (10:26)
--- NOTE | 2017-08-16 12:26 | PN ---
Progress Note, Physician History of Present Illness: Brisk response after initiation of IV diuresis. Anasarca improving, 10 lbs lost since admission. OLIVER and exercise capacity improving. - Current Medication List Current Medications: Active Medications Amlodipine Besylate (Norvasc -) 5 mg PO DAILY [facility] Last Admin: 08/16/17 10:23 Dose: 5 mg Aspirin (Asa -) 81 mg PO DAILY [facility] Last Admin: 08/16/17 10:23 Dose: 81 mg Carvedilol (Coreg -) 6.25 mg PO BID [facility] Last Admin: 08/16/17 10:23 Dose: 6.25 mg Furosemide (Lasix Injection -) 80 mg IVPUSH BID@0600,1400 [facility] Gabapentin (Neurontin -) 300 mg PO DAILY [facility] Last Admin: 08/16/17 10:26 Dose: Not Given Heparin Sodium (Porcine) (Heparin -) 5,000 unit SQ BID [facility] Last Admin: 08/16/17 10:23 Dose: 5,000 unit Cefazolin Sodium 1 gm/ (Dextrose) 50 mls @ 100 mls/hr IVPB Q8H-IV [facility] Last Admin: 08/16/17 10:23 Dose: 100 mls/hr Insulin Aspart (Novolog Vial Sliding Scale -) 1 vial SQ ACHS [facility] PRN Reason: Protocol Last Admin: 08/16/17 11:05 Dose: Not Given Levothyroxine Sodium (Synthroid -) 50 mcg PO DAILY@0700 [facility] Last Admin: 08/16/17 06:10 Dose: 50 mcg Silver Sulfadiazine (Silvadene -) 1 applic TP DAILY [facility] Last Admin: 08/16/17 10:26 Dose: 1 applic - Objective Vital Signs: Vital Signs Temperature 98.4 F 08/16/17 06:00 Pulse Rate 70 08/16/17 06:00 Respiratory Rate 20 08/16/17 06:00 Blood Pressure 143/103 08/16/17 06:00 O2 Sat by Pulse Oximetry (%) 93 L 08/16/17 09:00 Constitutional: Yes: No Distress, Calm Neck: Yes: Supple Cardiovascular: Yes: Regular Rate and Rhythm Respiratory: Yes: Regular, Diminished, On Nasal O2 Gastrointestinal: Yes: Normal Bowel Sounds, Distention Edema: Yes Edema: LLE: 2+, RLE: 2+ Labs: CBC, BMP 08/16/17 05:35 08/16/17 05:35 INR, PTT INR 1.13 (0.82-1.09) 08/13/17 14:46 Problem List - Problems (1) Acute on chronic diastolic (congestive) heart failure Code(s): I50.33 - ACUTE ON CHRONIC DIASTOLIC (CONGESTIVE) HEART FAILURE (2) Hypothyroidism Code(s): E03.9 - HYPOTHYROIDISM, UNSPECIFIED Qualifiers: Hypothyroidism type: unspecified Qualified Code(s): E03.9 - Hypothyroidism , unspecified (3) Goqvp-th-cmzbmli kidney injury Code(s): N17.9 - ACUTE KIDNEY FAILURE, UNSPECIFIED; N18.9 - CHRONIC KIDNEY DISEASE, UNSPECIFIED (4) Insulin dependent diabetes mellitus Code(s): E11.9 - TYPE 2 DIABETES MELLITUS WITHOUT COMPLICATIONS; Z79.4 - SNF (CURRENT) USE OF INSULIN (5) Hypertensive cardiomyopathy Code(s): I11.9 - HYPERTENSIVE HEART DISEASE WITHOUT HEART FAILURE; I43 - CARDIOMYOPATHY IN DISEASES CLASSIFIED ELSEWHERE Qualifiers: Heart failure presence: with heart failure Qualified Code(s): I11.0 - Hypertensive heart disease with heart failure; I43 - Cardiomyopathy in diseases classified elsewhere; I43 - Cardiomyopathy in diseases classified elsewhere; I43 - Cardiomyopathy in diseases classified elsewhere; I43 - Cardiomyopathy in diseases classified elsewhere (6) Mixed hyperlipidemia Code(s): E78.2 - MIXED HYPERLIPIDEMIA (7) Hyperuricemia Code(s): E79.0 - HYPERURICEMIA W/O SIGNS OF INFLAM ARTHRIT AND TOPHACEOUS DIS Assessment/Plan Echo: August 09, 2017 Normal LV fxn, ao sclerosis, mild AR, MR, UT, TR, impaired relaxation with elevated filling pressures, diastolic dysfunction, mild LVH, no effusion 1. Acute diastolic heart failure referable to NSAID and 2. Hypothyroidism 3. Acute on CKD with hyperkalemia and proteinuria referable to #1 4. Insulin-dependent type 2 diabetes mellitus not at goal control 5. Hypertension 6. Mixed hyperlipidemia 7. Hyperuricemia RECOMMENDATIONS: 1. Continue Synthroid 50 ug daily as tolerated per TSH, Norvasc 5 qd, ASA 81 qd 2. Continue carvedilol 6.25 bid with uptitration as tolerated 3. IV diuresis with monitor diuretic response, renal function and electrolytes 4. Hold Valsartan pending resolution of acute on chronic kidney injury and hyperkalemia. 5. Start Crestor 20 qd, optimize glycemic control 6. DVT prophylaxis, empiric abx for cellulitis, encourage ambulation
[2017-08-16 14:26] VITALS: BMI 49.3
--- NOTE | 2017-08-16 17:18 | PN ---
Progress Note (short form) - Note Progress Note: Renal Follow up for PRECIOUS vs. CKD Pt seen and examined at the bedside awake and alert no acute complaints ambulating up and down [address] with minimal sob Vital Signs Temperature 98.4 F 08/16/17 15:29 Pulse Rate 69 08/16/17 15:29 Respiratory Rate 20 08/16/17 15:29 Blood Pressure 156/88 08/16/17 15:29 O2 Sat by Pulse Oximetry (%) 93 L 08/16/17 09:00 Intake & Output 08/13/17 08/14/17 08/15/17 08/16/17 23:59 23:59 23:59 23:59 Intake Total 1730 1500 Output Total 3000 4000 1700 Balance -1270 -2500 -1700 Weight 147.418 kg 146.329 kg 144.707 kg 142.882 kg NAD awake and alert MMM, No JVD Neck supple RRR, No M/R Dec BS at right lung base, no wheeze, rales soft, obsese, NT/ND + LE edema, no cyanosis or clubbing CBC, BMP 08/16/17 05:35 08/16/17 05:35 Current Medications Amlodipine Besylate (Norvasc -) 5 mg PO DAILY [facility] Last Admin: 08/16/17 10:23 Dose: 5 mg Aspirin (Asa -) 81 mg PO DAILY [facility] Last Admin: 08/16/17 10:23 Dose: 81 mg Carvedilol (Coreg -) 6.25 mg PO BID [facility] Last Admin: 08/16/17 10:23 Dose: 6.25 mg Furosemide (Lasix Injection -) 80 mg IVPUSH BID@0600,1400 [facility] Last Admin: 08/16/17 14:50 Dose: 80 mg Gabapentin (Neurontin -) 300 mg PO DAILY [facility] Last Admin: 08/16/17 10:26 Dose: Not Given Heparin Sodium (Porcine) (Heparin -) 5,000 unit SQ BID [facility] Last Admin: 08/16/17 10:23 Dose: 5,000 unit Cefazolin Sodium 1 gm/ (Dextrose) 50 mls @ 100 mls/hr IVPB Q8H-IV [facility] Last Admin: 08/16/17 10:23 Dose: 100 mls/hr Insulin Aspart (Novolog Vial Sliding Scale -) 1 vial SQ ACHS [facility] PRN Reason: Protocol Last Admin: 08/16/17 16:47 Dose: Not Given Levothyroxine Sodium (Synthroid -) 50 mcg PO DAILY@0700 [facility] Last Admin: 08/16/17 06:10 Dose: 50 mcg Rosuvastatin Calcium (Crestor -) 20 mg PO HS [facility] Silver Sulfadiazine (Silvadene -) 1 applic TP DAILY [facility] Last Admin: 08/16/17 10:26 Dose: 1 applic This is a 71 year old woman wit PMhx of Hypertension x 30 + years, DM Type 2 on insulin, Hypothyrodism, Hyperurecemia, Obesity who presented with SOB/OLIVER and increasing swelling and admitted for acute HF with PRECIOUS. #Acute Kidney injury likely due to renal hypoprofusion/ischemia due to NSAIDs + diuretics vs. AIN vs. obstruction #Anasarca/Acute HF #Hypertension #Hyperkalemia due to NSAIDs + renal insufficiency Renal function remains stable Will change Lasix to 80mg IV BID (improve diuresis and decrease noctural urination) Trend BUN/Cr Serologic work up for proteinuria collected, results pending would benefit from MARY JANE/ARB once renal function stable and off IV Lasix Arvind Lemus DO
[2017-08-16] MEDS: ROSUVASTATIN CA 20 MG TABLET (FP) PO SCH (21:12)
[2017-08-17] MEDS ORDERED: DEXTROSE 5%-WATER - 50 ML IVPB ONE ×2 (01:58→09:03)
[2017-08-17] MEDS ORDERED: ceFAZolin SODIUM 1 GM VIAL ONE ×2 (01:58→09:03)
[2017-08-17] MEDS: CEFAZOLIN 1 GM in DEXTROSE 5%-WATER - 50 ML IVPB SCH ×2 (02:19→10:02)
[2017-08-17] MEDS: FUROSEMIDE 40 MG/4 ML INJECTABLE VIAL IVPUSH SCH ×2 (06:16→14:13)
[2017-08-17] MEDS: INSULIN SLIDING SCALE (NOVOLOG) 1 VIAL SQ SCH ×4 (06:19→22:02)
[2017-08-17] MEDS: LEVOTHYROXINE NA 50 MCG TABLET (FP) PO SCH (06:19)
--- NOTE | 2017-08-17 08:16 | PN ---
Progress Note, Physician Chief Complaint: Feels better History of Present Illness: Ultrasound abdomen showed no ascetics Fatty liver - Current Medication List Current Medications: Active Medications Amlodipine Besylate (Norvasc -) 5 mg PO DAILY [facility] Last Admin: 08/16/17 10:23 Dose: 5 mg Aspirin (Asa -) 81 mg PO DAILY [facility] Last Admin: 08/16/17 10:23 Dose: 81 mg Carvedilol (Coreg -) 6.25 mg PO BID [facility] Last Admin: 08/16/17 21:12 Dose: 6.25 mg Furosemide (Lasix Injection -) 80 mg IVPUSH BID@0600,1400 [facility] Last Admin: 08/17/17 06:16 Dose: 80 mg Gabapentin (Neurontin -) 300 mg PO DAILY [facility] Last Admin: 08/16/17 10:26 Dose: Not Given Heparin Sodium (Porcine) (Heparin -) 5,000 unit SQ BID [facility] Last Admin: 08/16/17 21:12 Dose: 5,000 unit Cefazolin Sodium 1 gm/ (Dextrose) 50 mls @ 100 mls/hr IVPB Q8H-IV [facility] Last Admin: 08/17/17 02:19 Dose: 100 mls/hr Insulin Aspart (Novolog Vial Sliding Scale -) 1 vial SQ ACHS [facility] PRN Reason: Protocol Last Admin: 08/17/17 06:19 Dose: Not Given Levothyroxine Sodium (Synthroid -) 50 mcg PO DAILY@0700 [facility] Last Admin: 08/17/17 06:19 Dose: 50 mcg Rosuvastatin Calcium (Crestor -) 20 mg PO HS [facility] Last Admin: 08/16/17 21:12 Dose: 20 mg Silver Sulfadiazine (Silvadene -) 1 applic TP DAILY [facility] Last Admin: 08/16/17 10:26 Dose: 1 applic - Objective Vital Signs: Vital Signs Temperature 99.2 F 08/17/17 02:55 Pulse Rate 79 08/17/17 02:55 Respiratory Rate 18 08/17/17 02:55 Blood Pressure 144/79 08/17/17 02:55 O2 Sat by Pulse Oximetry (%) 96 08/16/17 21:00 Constitutional: Yes: Anxious Eyes: Yes: WNL HENT: Yes: WNL Neck: Yes: WNL Cardiovascular: Yes: Regular Rate and Rhythm Respiratory: Yes: SOB on Exertion Gastrointestinal: Yes: WNL ...Rectal Exam: Yes: Deferred Edema: LLE: 1+, RLE: 1+ Wound/Incision: Yes: Clean/Dry (Leg wounds still oozing) Labs: CBC, BMP 08/16/17 05:35 08/16/17 05:35 INR, PTT INR 1.13 (0.82-1.09) 08/13/17 14:46 Assessment/Plan ID consult Dr Pa
[2017-08-17] MEDS: HEPARIN NA (PORCINE) 5,000 UNITS/ML 1ML VIAL SQ SCH ×2 (10:02→21:56)
[2017-08-17] MEDS: ASPIRIN 81 MG CHEWABLE TABLETS PO SCH (10:03)
[2017-08-17] MEDS: GABAPENTIN 300 MG CAPSULE (FP) PO SCH (10:03)
[2017-08-17] MEDS: CARVEDILOL 6.25 MG TABLET (FP) PO SCH ×2 (10:03→21:55)
[2017-08-17] MEDS: amLODIPine BESYLATE 5 MG TABLET (FP) PO SCH (10:03)
--- NOTE | 2017-08-17 12:01 | CON.ID ---
Consult - History of Present Illness History of Present Illness: INFECTIOUS DISEASE CONSULTATION: Asked to evaluate this 71 y.o. female with PMH of IDDM, HTN, HLD, hypothyroidism , possible CKD presenting with c/o SOB, OLIVER, and orthopnea associated with increased generalized swelling. Pt with PRECIOUS and acute diastolic CHF, anasarca on diuresis. She has b/l LE ulcerations (R>L) with surrounding erythema recently weeping clear fluid which began 1 day prior to admission. She had been started on Cefazolin 2 days ago and still with erythema but ulcerations have less weeping. Denies tenderness or generalized LE erythema. Her SOB and edema has been improving. Her Tmax is 99.2 and wbc has been within normal range. Pt has no other specific complaints. 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: Alzheimer's, CVA, Dementia, Migraine, Multiple Sclerosis, Peripheral Neuropathy, Parkinson's, Seizure, Syncope, TIA, Vertigo, Other Cardio/Vascular: Yes: HTN, Hyperlipdemia Pulmonary: No: Asthma, Bronchitis, Cancer, COPD, O2 Dependent, Pneumonia, Previously Intubated, Pulmonary Embolus, Pulmonary Fibrosis, Sleep Apnea, Other Gastrointestinal: No: Ascites, Cancer, Constipation, Crohn's Disease, Diverticulitis, Diverticulosis, Esophageal Varices, Gastritis, GERD, GI Bleed, Hemorrhoids, Hiatal Hernia, Inflamatory Bowel Disease, Irritable Bowel Disease, Pancreatitis, Peptic Ulcer Disease, Ulcerative Colitis, Other Hepatobiliary: No: Cirrhosis, Cholelithiasis, Cholecystitis, Choledocholithiasis , Hepatitis A, Hepatitis B, Hepatitis C, Other Reproductive: No: Ectopic , Endometriosis, Fibroids, PID, Polycystic Ovary Syndrome, Postmenopausal, Other Heme/Onc: No: Anemia, B12 Deficiency, Bleeding Disorder, Cancer, Current Chemotherapy, Current Radiation Therapy, Hemochromatosis, Hypercoaguable State, Myeloproliferative Synd, Sickle Cell Disease, Sickle Cell Trait, Thrombocytopenia, Other Infectious Disease: No: AIDS, C-Diff, Herpes Zoster, HIV, MRSA, STD's, Tuberculosis, VREF, Other Psych: No: Addictions, Anxiety, Bipolar, Depression, Panic, Psychosis, Schizophrenia, Other Musculoskeletal: No: Bursitis, Chronic low back pain, Hemiparesis, Hemiplegia, Osteoarthritis, Paraplegia, Other Rheumatology: No: Fibromyalgia, Gout, Lupus, Rheumatoid Arthritis, Sarcoidosis, Vasculitis, Other ENT: No: Allergic Rhinitis, Sinusitis, Other Endocrine: Yes: Diabetes Mellitus Dermatology: No: Basal Cell, Cellulitis, Eczema, Melanoma, Psoriasis, Squamous Cell, Other - Past Surgical History Past Surgical History: No: None, AAA Repair, AICD, Amputation, Appendectomy, Arthrosocopy, AV Fistula/Graft, Bariatric Surgery, Breast Biopsy, Bypass, CABG, Carotid Endarterectomy, Cataract Removal, Cholecystectomy, Colectomy, Colonoscopy, Colostomy, Craniotomy, , Cystectomy, Hernia Repair, Hysterectomy, Ileal Conduit, Ileosotomy, Joint Replacement, Kidney Transplant, Laminectomy, Liver Transplant, Mastectomy, Nephrectomy, Oopherectomy, Orchiectomy, Permanent Pacemaker, Prostatectomy, Splenectomy, Stent, Thoracotomy , TURP, Tonsillectomy, Tubal Ligation, Upper Endoscopy, Valve Replacement, Vasectomy, Vein Stripping/Ligation - Alcohol/Substance Use Hx Alcohol Use: No - Smoking History Smoking history: Never smoked Have you smoked in the past 12 months: No Home Medications - Allergies Allergies/Adverse Reactions: Allergies Allergy/AdvReac Type Severity Reaction Status Date / Time shellfish derived Allergy Verified 08/13/17 13:35 - Home Medications Home Medications: Ambulatory Orders Alendronate Sodium [Fosamax] 10 mg PO WEEKLY 09/19/15 Allopurinol [Zyloprim -] 100 mg PO DAILY 09/19/15 Amlodipine Besylate [Norvasc -] 10 mg PO DAILY 09/19/15 Fenofibrate,Micronized [Fenofibrate] 134 mg PO DAILY 09/19/15 Gabapentin [Neurontin -] 100 mg PO DAILY 09/19/15 Multivitamin with Minerals [Icaps Plus] 1 each PO DAILY 09/19/15 Sitagliptin Phos/Metformin HCl [Janumet 50-1,000 mg Tablet] 1 each PO DAILY Omeprazole [Prilosec] 40 mg PO DAILY #60 capsule. 09/20/15 Insulin (Novolog 70/30) [Novolog Mix 70/30 Flexpen -] 18 units SQ BIDAC Review of Systems - Review of Systems Constitutional: reports: No Symptoms Eyes: reports: No Symptoms HENT: reports: No Symptoms Neck: reports: No Symptoms Cardiovascular: reports: No Symptoms Respiratory: reports: No Symptoms Gastrointestinal: reports: No Symptoms Genitourinary: reports: No Symptoms Musculoskeletal: reports: No Symptoms Integumentary: reports: Erythema Neurological: reports: No Symptoms Endocrine: reports: No Symptoms Hematology/Lymphatic: reports: No Symptoms Psychiatric: reports: No Symptoms Physical Exam Vital Signs: Vital Signs Temperature 98.1 F 08/17/17 10:00 Pulse Rate 76 08/17/17 10:00 Respiratory Rate 19 08/17/17 10:00 Blood Pressure 124/59 08/17/17 10:00 O2 Sat by Pulse Oximetry (%) 96 08/16/17 21:00 Constitutional: Yes: No Distress, Calm HENT: Yes: Atraumatic Neck: Yes: Supple Cardiovascular: Yes: Regular Rate and Rhythm Respiratory: Yes: Regular Gastrointestinal: Yes: Normal Bowel Sounds, Soft Musculoskeletal: Yes: WNL Extremities: Yes: Erythema Edema: Yes (b/l LE) Integumentary: Yes: Erythema (ulcerations dry, +surrounding erythema, no tenderness, no LE warmth) Wound/Incision: Yes: Open to air Neurological: Yes: Alert, Oriented Psychiatric: Yes: Alert Labs: CBC, BMP 08/16/17 05:35 08/16/17 05:35 Problem List - Problems (1) Acute on chronic diastolic (congestive) heart failure Code(s): I50.33 - ACUTE ON CHRONIC DIASTOLIC (CONGESTIVE) HEART FAILURE (2) Xcvko-bj-wbfsaon kidney injury Code(s): N17.9 - ACUTE KIDNEY FAILURE, UNSPECIFIED; N18.9 - CHRONIC KIDNEY DISEASE, UNSPECIFIED (3) Hyperuricemia Code(s): E79.0 - HYPERURICEMIA W/O SIGNS OF INFLAM ARTHRIT AND TOPHACEOUS DIS (4) Hypothyroidism Code(s): E03.9 - HYPOTHYROIDISM, UNSPECIFIED Qualifiers: Hypothyroidism type: unspecified Qualified Code(s): E03.9 - Hypothyroidism , unspecified (5) Insulin dependent diabetes mellitus Code(s): E11.9 - TYPE 2 DIABETES MELLITUS WITHOUT COMPLICATIONS; Z79.4 - NURSING HOME (CURRENT) USE OF INSULIN (6) Mixed hyperlipidemia Code(s): E78.2 - MIXED HYPERLIPIDEMIA Assessment/Plan 71 y.o. female with IDDM, HTN, HLD, hypothyroidism, likely CKD presenting with shortness of breath/OLIVER/orthopnea with swelling and weight gain and LE b/l R>L oozing ulcerations with surrounding non-improving erythema but improvement in weeping with less LE edema PRECIOUS on CKD Acute diastolic CHF Infected LE ulcers IDDM -- suggest d/c Cefazolin -- start Unasyn IV for now -- monitor LE lesions for improvement Thank you
--- NOTE | 2017-08-17 14:54 | PN ---
Progress Note, Physician Chief Complaint: The patient seen in her room. Lying in bed. The legs both with blistering lesions. Reports good urine output. No chest pain. No shortness of breath. History of Present Illness: his is a 71 year old woman wit PMhx of Hypertension x 30 + years, DM Type 2 on insulin, Hypothyrodism, Hyperuricemia, Obesity who presented with SOB/OLIVER and increasing swelling and admitted for acute HF with PRECIOUS. Acute Kidney injury likely due to renal hypoprofusion/ischemia due to NSAIDs + diuretics vs. AIN vs. obstruction Anasarca/Acute HF Hypertension Hyperkalemia due to NSAIDs / renal insufficiency - Current Medication List Current Medications: Active Medications Amlodipine Besylate (Norvasc -) 5 mg PO DAILY [facility] [place] Last Admin: 08/17/17 10:03 Dose: 5 mg Aspirin (Asa -) 81 mg PO DAILY [facility] [place] Last Admin: 08/17/17 10:03 Dose: 81 mg Carvedilol (Coreg -) 6.25 mg PO BID [facility] [place] Last Admin: 08/17/17 10:03 Dose: 6.25 mg Furosemide (Lasix Injection -) 80 mg IVPUSH BID@0600,1400 [facility] [place] Last Admin: 08/17/17 14:13 Dose: 80 mg Gabapentin (Neurontin -) 300 mg PO DAILY [facility] [place] Last Admin: 08/17/17 10:03 Dose: 300 mg Heparin Sodium (Porcine) (Heparin -) 5,000 unit SQ BID [facility] [place] Last Admin: 08/17/17 10:02 Dose: 5,000 unit Ampicillin Sodium/Sulbactam (Sodium 3 gm/ Sodium Chloride) 100 mls @ 200 mls/ hr IVPB Q6H-IV [facility] [place] Insulin Aspart (Novolog Vial Sliding Scale -) 1 vial SQ ACHS [facility] [place] PRN Reason: Protocol Last Admin: 08/17/17 12:00 Dose: Not Given Levothyroxine Sodium (Synthroid -) 50 mcg PO DAILY@0700 [facility] [place] Last Admin: 08/17/17 06:19 Dose: 50 mcg Rosuvastatin Calcium (Crestor -) 20 mg PO HS [facility] [place] Last Admin: 08/16/17 21:12 Dose: 20 mg Silver Sulfadiazine (Silvadene -) 1 applic TP DAILY [facility] [place] Last Admin: 08/16/17 10:26 Dose: 1 applic - Objective Vital Signs: Vital Signs Temperature 98.7 F 08/17/17 14:24 Pulse Rate 76 08/17/17 14:24 Respiratory Rate 20 08/17/17 14:24 Blood Pressure 126/72 08/17/17 14:24 O2 Sat by Pulse Oximetry (%) 96 08/16/17 21:00 Constitutional: Yes: No Distress Eyes: Yes: Conjunctiva Clear HENT: Yes: Atraumatic Neck: Yes: Trachea Midline Cardiovascular: Yes: S1 Respiratory: Yes: CTA Bilaterally, Poor Air Entry Gastrointestinal: Yes: Normal Bowel Sounds, Abdomen, Obese Extremities: Yes: Erythema, Other (katalina leg blisters) Edema: Yes Neurological: Yes: Alert Labs: CBC, BMP 08/16/17 05:35 08/16/17 05:35 INR, PTT INR 1.13 (0.82-1.09) 08/13/17 14:46 Problem List - Problems (1) Acute on chronic diastolic (congestive) heart failure Code(s): I50.33 - ACUTE ON CHRONIC DIASTOLIC (CONGESTIVE) HEART FAILURE (2) Xrska-ms-qwptozd kidney injury Code(s): N17.9 - ACUTE KIDNEY FAILURE, UNSPECIFIED; N18.9 - CHRONIC KIDNEY DISEASE, UNSPECIFIED (3) Hypertensive cardiomyopathy Code(s): I11.9 - HYPERTENSIVE HEART DISEASE WITHOUT HEART FAILURE; I43 - CARDIOMYOPATHY IN DISEASES CLASSIFIED ELSEWHERE Qualifiers: Heart failure presence: with heart failure Qualified Code(s): I11.0 - Hypertensive heart disease with heart failure; I43 - Cardiomyopathy in diseases classified elsewhere; I43 - Cardiomyopathy in diseases classified elsewhere; I43 - Cardiomyopathy in diseases classified elsewhere; I43 - Cardiomyopathy in diseases classified elsewhere (4) Hyperuricemia Code(s): E79.0 - HYPERURICEMIA W/O SIGNS OF INFLAM ARTHRIT AND TOPHACEOUS DIS (5) Hypothyroidism Code(s): E03.9 - HYPOTHYROIDISM, UNSPECIFIED Qualifiers: Hypothyroidism type: unspecified Qualified Code(s): E03.9 - Hypothyroidism , unspecified (6) Insulin dependent diabetes mellitus Code(s): E11.9 - TYPE 2 DIABETES MELLITUS WITHOUT COMPLICATIONS; Z79.4 - [facility] (CURRENT) USE OF INSULIN Assessment/Plan his is a 71 year old woman wit PMhx of Hypertension x 30 + years, DM Type 2 on insulin, Hypothyrodism, Hyperuricemia, Obesity who presented with SOB/OLIVER and increasing swelling and admitted for acute HF with PRECIOUS. The patient is putting out good amounts of urine. On IV Lasix twice daily ID lactation consultant's notes noted. ABX as ordered. Will monitor the renal functions with you. Thank you. Aleshia Azevedo MD
--- NOTE | 2017-08-17 17:14 | PN ---
Progress Note, Physician History of Present Illness: Brisk response to IV diuresis. Anasarca , OLIVER and exercise capacity improving. - Current Medication List Current Medications: Active Medications Amlodipine Besylate (Norvasc -) 5 mg PO DAILY [facility] Last Admin: 08/17/17 10:03 Dose: 5 mg Aspirin (Asa -) 81 mg PO DAILY [facility] Last Admin: 08/17/17 10:03 Dose: 81 mg Carvedilol (Coreg -) 6.25 mg PO BID [facility] Last Admin: 08/17/17 10:03 Dose: 6.25 mg Furosemide (Lasix Injection -) 80 mg IVPUSH BID@0600,1400 [facility] Last Admin: 08/17/17 14:13 Dose: 80 mg Gabapentin (Neurontin -) 300 mg PO DAILY [facility] Last Admin: 08/17/17 10:03 Dose: 300 mg Heparin Sodium (Porcine) (Heparin -) 5,000 unit SQ BID [facility] Last Admin: 08/17/17 10:02 Dose: 5,000 unit Ampicillin Sodium/Sulbactam (Sodium 3 gm/ Sodium Chloride) 100 mls @ 200 mls/ hr IVPB Q6H-IV [facility] Insulin Aspart (Novolog Vial Sliding Scale -) 1 vial SQ ACHS [facility] PRN Reason: Protocol Last Admin: 08/17/17 17:13 Dose: Not Given Levothyroxine Sodium (Synthroid -) 50 mcg PO DAILY@0700 [facility] Last Admin: 08/17/17 06:19 Dose: 50 mcg Rosuvastatin Calcium (Crestor -) 20 mg PO HS [facility] Last Admin: 08/16/17 21:12 Dose: 20 mg Silver Sulfadiazine (Silvadene -) 1 applic TP DAILY [facility] Last Admin: 08/16/17 10:26 Dose: 1 applic - Objective Vital Signs: Vital Signs Temperature 98.7 F 08/17/17 14:24 Pulse Rate 76 08/17/17 14:24 Respiratory Rate 20 08/17/17 14:24 Blood Pressure 126/72 08/17/17 14:24 O2 Sat by Pulse Oximetry (%) 96 08/16/17 21:00 Constitutional: Yes: No Distress, Calm Neck: Yes: Supple Cardiovascular: Yes: Regular Rate and Rhythm Respiratory: Yes: Regular, Diminished Gastrointestinal: Yes: Normal Bowel Sounds, Soft, Abdomen, Obese Edema: Yes Edema: LLE: 2+, RLE: 2+ Labs: CBC, BMP 08/16/17 05:35 08/16/17 05:35 INR, PTT INR 1.13 (0.82-1.09) 08/13/17 14:46 Problem List - Problems (1) Acute on chronic diastolic (congestive) heart failure Code(s): I50.33 - ACUTE ON CHRONIC DIASTOLIC (CONGESTIVE) HEART FAILURE (2) Hypothyroidism Code(s): E03.9 - HYPOTHYROIDISM, UNSPECIFIED Qualifiers: Hypothyroidism type: unspecified Qualified Code(s): E03.9 - Hypothyroidism , unspecified (3) Rmetc-ul-utmsetp kidney injury Code(s): N17.9 - ACUTE KIDNEY FAILURE, UNSPECIFIED; N18.9 - CHRONIC KIDNEY DISEASE, UNSPECIFIED (4) Insulin dependent diabetes mellitus Code(s): E11.9 - TYPE 2 DIABETES MELLITUS WITHOUT COMPLICATIONS; Z79.4 - NURSING HOME (CURRENT) USE OF INSULIN (5) Hypertensive cardiomyopathy Code(s): I11.9 - HYPERTENSIVE HEART DISEASE WITHOUT HEART FAILURE; I43 - CARDIOMYOPATHY IN DISEASES CLASSIFIED ELSEWHERE Qualifiers: Heart failure presence: with heart failure Qualified Code(s): I11.0 - Hypertensive heart disease with heart failure; I43 - Cardiomyopathy in diseases classified elsewhere; I43 - Cardiomyopathy in diseases classified elsewhere; I43 - Cardiomyopathy in diseases classified elsewhere; I43 - Cardiomyopathy in diseases classified elsewhere (6) Mixed hyperlipidemia Code(s): E78.2 - MIXED HYPERLIPIDEMIA (7) Hyperuricemia Code(s): E79.0 - HYPERURICEMIA W/O SIGNS OF INFLAM ARTHRIT AND TOPHACEOUS DIS Assessment/Plan Echo: August 09, 2017 Normal LV fxn, ao sclerosis, mild AR, MR, AL, TR, impaired relaxation with elevated filling pressures, diastolic dysfunction, mild LVH, no effusion 1. Acute diastolic heart failure referable to NSAID and 2. Hypothyroidism 3. Acute on CKD with hyperkalemia and proteinuria referable to #1 4. Insulin-dependent type 2 diabetes mellitus not at goal control 5. Hypertension 6. Mixed hyperlipidemia 7. Hyperuricemia RECOMMENDATIONS: 1. Continue Synthroid 50 ug daily as tolerated per TSH, Norvasc 5 qd, ASA 81 qd 2. Continue carvedilol 6.25 bid with uptitration as tolerated 3. IV diuresis with monitor diuretic response, renal function and electrolytes 4. Hold Valsartan pending resolution of acute on chronic kidney injury and hyperkalemia. 5. Continue Crestor 20 qd, optimize glycemic control 6. DVT prophylaxis, empiric abx for cellulitis, encourage ambulation
[2017-08-17] MEDS: SILVER SULFADIAZINE 1% TOP CREAM 50 GM JAR TP SCH (17:41)
[2017-08-17] MEDS ORDERED: PT OWN MED DRAWER 7, Y5N ONE ×2 (17:41→21:47)
[2017-08-17] MEDS: AMPICILLIN NA/SULBACTAM NA 3 GM in SODIUM CHLORIDE 100 ML IVPB SCH ×2 (17:41→21:55)
[2017-08-17] MEDS ORDERED: ACETAMINOPHEN 325 MG TABLET (FP) ONE (19:38)
[2017-08-17] MEDS: ROSUVASTATIN CA 20 MG TABLET (FP) PO SCH (21:55)
[2017-08-18] MEDS ORDERED: PT OWN MED DRAWER 7, Y5N ONE ×2 (02:18→20:58)
[2017-08-18] MEDS: AMPICILLIN NA/SULBACTAM NA 3 GM in SODIUM CHLORIDE 100 ML IVPB SCH ×4 (02:25→21:10)
[2017-08-18] MEDS: LEVOTHYROXINE NA 50 MCG TABLET (FP) PO SCH (06:08)
[2017-08-18] MEDS: FUROSEMIDE 40 MG/4 ML INJECTABLE VIAL IVPUSH SCH ×2 (06:09→13:23)
[2017-08-18] MEDS: INSULIN SLIDING SCALE (NOVOLOG) 1 VIAL SQ SCH ×4 (06:13→21:12)
[2017-08-18 06:38] LABS: HEP.C VIRUS AB <0.1 s/co ratio (0.0-0.9)
[2017-08-18 08:09] LABS: ALBUMIN 1.5 g/dl (3.4-5.0); ALK PHOS 54 U/L (45-117); ANION GAP 8 (8-16); BILIRUBIN,TOTAL 0.1 mg/dL (0.2-1.0); BLOOD UREA NITROGEN 46 mg/dL (7-18); CALCIUM 7.8 mg/dL (8.5-10.1); CHLORIDE 105 mmol/L (98-107); CO2 29 mmol/L (21-32); GLUCOSE,RANDOM 131 mg/dL (74-106); MAGNESIUM 2.1 mg/dL (1.8-2.4); PHOSPHOROUS 4.8 mg/dL (2.5-4.9); POTASSIUM 4.6 mmol/L (3.5-5.1); SGOT/AST 26 U/L (15-37); SGPT/ALT 11 U/L (12-78); SODIUM 142 mmol/L (136-145); TOT PROT 4.7 g/dl (6.4-8.2); URIC ACID 9.1 mg/dL (2.6-7.2)
[2017-08-18] MEDS: ASPIRIN 81 MG CHEWABLE TABLETS PO SCH (09:11)
[2017-08-18] MEDS: amLODIPine BESYLATE 5 MG TABLET (FP) PO SCH (09:11)
[2017-08-18] MEDS: HEPARIN NA (PORCINE) 5,000 UNITS/ML 1ML VIAL SQ SCH ×2 (09:11→21:11)
[2017-08-18] MEDS: GABAPENTIN 300 MG CAPSULE (FP) PO SCH (09:11)
[2017-08-18] MEDS: CARVEDILOL 6.25 MG TABLET (FP) PO SCH ×2 (09:11→21:10)
--- NOTE | 2017-08-18 13:01 | PN ---
Progress Note, Physician History of Present Illness: Brisk response to IV diuresis with 17 lbs loss since admission. Anasarca , OLIVER and exercise capacity improving. - Current Medication List Current Medications: Active Medications Acetaminophen (Tylenol -) 500 mg PO Q6H PRN PRN Reason: FEVER Amlodipine Besylate (Norvasc -) 5 mg PO DAILY [facility] Last Admin: 08/18/17 09:11 Dose: 5 mg Aspirin (Asa -) 81 mg PO DAILY [facility] Last Admin: 08/18/17 09:11 Dose: 81 mg Carvedilol (Coreg -) 6.25 mg PO BID [facility] Last Admin: 08/18/17 09:11 Dose: 6.25 mg Furosemide (Lasix Injection -) 80 mg IVPUSH BID@0600,1400 [facility] Last Admin: 08/18/17 06:09 Dose: 80 mg Gabapentin (Neurontin -) 300 mg PO DAILY [facility] Last Admin: 08/18/17 09:11 Dose: 300 mg Heparin Sodium (Porcine) (Heparin -) 5,000 unit SQ BID [facility] Last Admin: 08/18/17 09:11 Dose: 5,000 unit Ampicillin Sodium/Sulbactam (Sodium 3 gm/ Sodium Chloride) 100 mls @ 200 mls/ hr IVPB Q6H-IV [facility] Last Admin: 08/18/17 09:06 Dose: 200 mls/hr Insulin Aspart (Novolog Vial Sliding Scale -) 1 vial SQ ACHS [facility] PRN Reason: Protocol Last Admin: 08/18/17 06:13 Dose: Not Given Levothyroxine Sodium (Synthroid -) 50 mcg PO DAILY@0700 [facility] Last Admin: 08/18/17 06:08 Dose: 50 mcg Rosuvastatin Calcium (Crestor -) 20 mg PO HS [facility] Last Admin: 08/17/17 21:55 Dose: 20 mg Silver Sulfadiazine (Silvadene -) 1 applic TP DAILY [facility] Last Admin: 08/17/17 17:41 Dose: 1 applic - Objective Vital Signs: Vital Signs Temperature 97.5 F L 08/18/17 09:56 Pulse Rate 70 08/18/17 09:56 Respiratory Rate 18 08/18/17 09:56 Blood Pressure 133/71 08/18/17 09:56 O2 Sat by Pulse Oximetry (%) 97 08/17/17 21:00 Constitutional: Yes: No Distress, Calm Neck: Yes: Supple Cardiovascular: Yes: Regular Rate and Rhythm Respiratory: Yes: Regular, Diminished, On Nasal O2 Gastrointestinal: Yes: Normal Bowel Sounds, Soft, Abdomen, Obese Edema: Yes Edema: LLE: 2+, RLE: 2+ Labs: CBC, BMP 08/16/17 05:35 08/18/17 07:20 INR, PTT INR 1.13 (0.82-1.09) 08/13/17 14:46 - ....Imaging EKG: Report Reviewed (Tele: SR) Problem List - Problems (1) Acute on chronic diastolic (congestive) heart failure Code(s): I50.33 - ACUTE ON CHRONIC DIASTOLIC (CONGESTIVE) HEART FAILURE (2) Hypothyroidism Code(s): E03.9 - HYPOTHYROIDISM, UNSPECIFIED Qualifiers: Hypothyroidism type: unspecified Qualified Code(s): E03.9 - Hypothyroidism , unspecified (3) Gonqn-wg-seabpin kidney injury Code(s): N17.9 - ACUTE KIDNEY FAILURE, UNSPECIFIED; N18.9 - CHRONIC KIDNEY DISEASE, UNSPECIFIED (4) Insulin dependent diabetes mellitus Code(s): E11.9 - TYPE 2 DIABETES MELLITUS WITHOUT COMPLICATIONS; Z79.4 - [facility] (CURRENT) USE OF INSULIN (5) Hypertensive cardiomyopathy Code(s): I11.9 - HYPERTENSIVE HEART DISEASE WITHOUT HEART FAILURE; I43 - CARDIOMYOPATHY IN DISEASES CLASSIFIED ELSEWHERE Qualifiers: Heart failure presence: with heart failure Qualified Code(s): I11.0 - Hypertensive heart disease with heart failure; I43 - Cardiomyopathy in diseases classified elsewhere; I43 - Cardiomyopathy in diseases classified elsewhere; I43 - Cardiomyopathy in diseases classified elsewhere; I43 - Cardiomyopathy in diseases classified elsewhere (6) Mixed hyperlipidemia Code(s): E78.2 - MIXED HYPERLIPIDEMIA (7) Hyperuricemia Code(s): E79.0 - HYPERURICEMIA W/O SIGNS OF INFLAM ARTHRIT AND TOPHACEOUS DIS Assessment/Plan Echo: August 09, 2017 Normal LV fxn, ao sclerosis, mild AR, MR, MI, TR, impaired relaxation with elevated filling pressures, diastolic dysfunction, mild LVH, no effusion 1. Acute diastolic heart failure referable to NSAID improving 2. Hypothyroidism 3. Acute on CKD with hyperkalemia and proteinuria referable to #1 4. Insulin-dependent type 2 diabetes mellitus not at goal control 5. Hypertension 6. Mixed hyperlipidemia 7. Hyperuricemia RECOMMENDATIONS: 1. Continue Synthroid 50 ug daily as tolerated per TSH, Norvasc 5 qd, ASA 81 qd 2. Continue carvedilol 6.25 bid with uptitration as tolerated 3. IV and oral diuresis with monitor diuretic response, renal function and electrolytes 4. Hold Valsartan pending resolution of acute on chronic kidney injury and hyperkalemia. 5. Continue Crestor 20 qd, optimize glycemic control 6. DVT prophylaxis, empiric abx for cellulitis, encourage ambulation
--- NOTE | 2017-08-18 13:18 | PN ---
Progress Note, Physician Chief Complaint: The patient seen in her room. Lying in bed. The leg edema has not changed significantly. The weight seems to be slowly improving. Blisters still noted. . Reports good urine output. No chest pain. No shortness of breath. History of Present Illness: This is a 71 year old woman wit PMhx of Hypertension x 30 + years, DM Type 2 on insulin, Hypothyrodism, Hyperuricemia, Obesity who presented with SOB/OLIVER and increasing swelling and admitted for acute HF with PRECIOUS. Has a significant amount of fluid retention. - Current Medication List Current Medications: Active Medications Acetaminophen (Tylenol -) 500 mg PO Q6H PRN PRN Reason: FEVER Amlodipine Besylate (Norvasc -) 5 mg PO DAILY [facility] Last Admin: 08/18/17 09:11 Dose: 5 mg Aspirin (Asa -) 81 mg PO DAILY [facility] Last Admin: 08/18/17 09:11 Dose: 81 mg Carvedilol (Coreg -) 6.25 mg PO BID [facility] Last Admin: 08/18/17 09:11 Dose: 6.25 mg Furosemide (Lasix Injection -) 80 mg IVPUSH BID@0600,1400 [facility] Last Admin: 08/18/17 06:09 Dose: 80 mg Gabapentin (Neurontin -) 300 mg PO DAILY [facility] Last Admin: 08/18/17 09:11 Dose: 300 mg Heparin Sodium (Porcine) (Heparin -) 5,000 unit SQ BID [facility] Last Admin: 08/18/17 09:11 Dose: 5,000 unit Ampicillin Sodium/Sulbactam (Sodium 3 gm/ Sodium Chloride) 100 mls @ 200 mls/ hr IVPB Q6H-IV [facility] Last Admin: 08/18/17 09:06 Dose: 200 mls/hr Insulin Aspart (Novolog Vial Sliding Scale -) 1 vial SQ ACHS [facility] PRN Reason: Protocol Last Admin: 08/18/17 06:13 Dose: Not Given Levothyroxine Sodium (Synthroid -) 50 mcg PO DAILY@0700 [facility] Last Admin: 08/18/17 06:08 Dose: 50 mcg Rosuvastatin Calcium (Crestor -) 20 mg PO HS [facility] Last Admin: 08/17/17 21:55 Dose: 20 mg Silver Sulfadiazine (Silvadene -) 1 applic TP DAILY [facility] Last Admin: 08/17/17 17:41 Dose: 1 applic - Objective Vital Signs: Vital Signs Temperature 97.5 F L 08/18/17 09:56 Pulse Rate 70 08/18/17 09:56 Respiratory Rate 18 08/18/17 09:56 Blood Pressure 133/71 08/18/17 09:56 O2 Sat by Pulse Oximetry (%) 97 08/17/17 21:00 Constitutional: Yes: No Distress, Anxious HENT: Yes: Atraumatic, Normocephalic Neck: Yes: Trachea Midline Cardiovascular: Yes: S1, S2 Respiratory: Yes: CTA Bilaterally, Poor Air Entry Gastrointestinal: Yes: Normal Bowel Sounds, Soft, Abdomen, Obese Edema: Yes Edema: LLE: 2+, RLE: 2+ Neurological: Yes: Alert, Oriented Psychiatric: Yes: Alert Labs: CBC, BMP 08/16/17 05:35 08/18/17 07:20 INR, PTT INR 1.13 (0.82-1.09) 08/13/17 14:46 Problem List - Problems (1) Acute on chronic diastolic (congestive) heart failure Code(s): I50.33 - ACUTE ON CHRONIC DIASTOLIC (CONGESTIVE) HEART FAILURE (2) [id number] kidney injury Code(s): N17.9 - ACUTE KIDNEY FAILURE, UNSPECIFIED; N18.9 - CHRONIC KIDNEY DISEASE, UNSPECIFIED (3) Hypertensive cardiomyopathy Code(s): I11.9 - HYPERTENSIVE HEART DISEASE WITHOUT HEART FAILURE; I43 - CARDIOMYOPATHY IN DISEASES CLASSIFIED ELSEWHERE Qualifiers: Heart failure presence: with heart failure Qualified Code(s): I11.0 - Hypertensive heart disease with heart failure; I43 - Cardiomyopathy in diseases classified elsewhere; I43 - Cardiomyopathy in diseases classified elsewhere; I43 - Cardiomyopathy in diseases classified elsewhere; I43 - Cardiomyopathy in diseases classified elsewhere (4) Hyperuricemia Code(s): E79.0 - HYPERURICEMIA W/O SIGNS OF INFLAM ARTHRIT AND TOPHACEOUS DIS (5) Hypothyroidism Code(s): E03.9 - HYPOTHYROIDISM, UNSPECIFIED Qualifiers: Hypothyroidism type: unspecified Qualified Code(s): E03.9 - Hypothyroidism , unspecified (6) Insulin dependent diabetes mellitus Code(s): E11.9 - TYPE 2 DIABETES MELLITUS WITHOUT COMPLICATIONS; Z79.4 - LONG-TERM (CURRENT) USE OF INSULIN Assessment/Plan his is a 71 year old woman wit PMhx of Hypertension x 30 + years, DM Type 2 on insulin, Hypothyrodism, Hyperuricemia, Obesity who presented with SOB/OLIVER and increasing swelling and admitted for acute HF with PRECIOUS. The patient is putting out good amounts of urine. ID industry consultant's notes noted. ABX as ordered. Tolerating IV Lasix. Will add low dose Metolazone. Discussed with Dr. Rogers Will monitor the renal functions with you. Thank you. Aleshia Azevedo MD
[2017-08-18] MEDS: SILVER SULFADIAZINE 1% TOP CREAM 50 GM JAR TP SCH (13:24)
[2017-08-18] MEDS: ACETAMINOPHEN 500 MG TABLET (FP) PO PRN (13:26)
[2017-08-18] MEDS: METOLAZONE 2.5 MG TABLET (FP) PO SCH (13:26)
--- NOTE | 2017-08-18 14:38 | PN ---
Progress Note, Physician History of Present Illness: Pt c/o loose BMs today. No abd pain. Remains afebrile. States her legs feel better. - Current Medication List Current Medications: Active Medications Acetaminophen (Tylenol -) 500 mg PO Q6H PRN PRN Reason: FEVER Last Admin: 08/18/17 13:26 Dose: 500 mg Amlodipine Besylate (Norvasc -) 5 mg PO DAILY [facility] Last Admin: 08/18/17 09:11 Dose: 5 mg Aspirin (Asa -) 81 mg PO DAILY [facility] Last Admin: 08/18/17 09:11 Dose: 81 mg Carvedilol (Coreg -) 6.25 mg PO BID [facility] Last Admin: 08/18/17 09:11 Dose: 6.25 mg Furosemide (Lasix Injection -) 80 mg IVPUSH BID@0600,1400 [facility] Last Admin: 08/18/17 13:23 Dose: 80 mg Gabapentin (Neurontin -) 300 mg PO DAILY [facility] Last Admin: 08/18/17 09:11 Dose: 300 mg Heparin Sodium (Porcine) (Heparin -) 5,000 unit SQ BID [facility] Last Admin: 08/18/17 09:11 Dose: 5,000 unit Ampicillin Sodium/Sulbactam (Sodium 3 gm/ Sodium Chloride) 100 mls @ 200 mls/ hr IVPB Q6H-IV [facility] Last Admin: 08/18/17 09:06 Dose: 200 mls/hr Insulin Aspart (Novolog Vial Sliding Scale -) 1 vial SQ ACHS [facility] PRN Reason: Protocol Last Admin: 08/18/17 13:24 Dose: Not Given Levothyroxine Sodium (Synthroid -) 50 mcg PO DAILY@0700 [facility] Last Admin: 08/18/17 06:08 Dose: 50 mcg Metolazone (Zaroxolyn -) 2.5 mg PO DAILY [facility] Last Admin: 08/18/17 13:26 Dose: 2.5 mg Rosuvastatin Calcium (Crestor -) 20 mg PO HS [facility] Last Admin: 08/17/17 21:55 Dose: 20 mg Silver Sulfadiazine (Silvadene -) 1 applic TP DAILY [facility] Last Admin: 08/18/17 13:24 Dose: 1 applic - Objective Vital Signs: Vital Signs Temperature 97.5 F L 08/18/17 09:56 Pulse Rate 70 08/18/17 09:56 Respiratory Rate 18 08/18/17 09:56 Blood Pressure 133/71 08/18/17 09:56 O2 Sat by Pulse Oximetry (%) 97 08/17/17 21:00 Constitutional: Yes: No Distress, Calm Cardiovascular: Yes: Regular Rate and Rhythm Respiratory: Yes: Regular Gastrointestinal: Yes: Normal Bowel Sounds, Soft Genitourinary: Yes: WNL Edema: LLE: 2+, RLE: 2+ Integumentary: Yes: Erythema (R>L Erythema with ulcerations, no drainage/weeping , no tenderness) Labs: CBC, BMP 08/16/17 05:35 08/18/17 07:20 INR, PTT INR 1.13 (0.82-1.09) 08/13/17 14:46 Problem List - Problems (1) Acute on chronic diastolic (congestive) heart failure Code(s): I50.33 - ACUTE ON CHRONIC DIASTOLIC (CONGESTIVE) HEART FAILURE (2) Ibpos-wr-bnuanfu kidney injury Code(s): N17.9 - ACUTE KIDNEY FAILURE, UNSPECIFIED; N18.9 - CHRONIC KIDNEY DISEASE, UNSPECIFIED (3) Hyperuricemia Code(s): E79.0 - HYPERURICEMIA W/O SIGNS OF INFLAM ARTHRIT AND TOPHACEOUS DIS (4) Hypothyroidism Code(s): E03.9 - HYPOTHYROIDISM, UNSPECIFIED Qualifiers: Hypothyroidism type: unspecified Qualified Code(s): E03.9 - Hypothyroidism , unspecified (5) Insulin dependent diabetes mellitus Code(s): E11.9 - TYPE 2 DIABETES MELLITUS WITHOUT COMPLICATIONS; Z79.4 - NERVE SPECIALIST (CURRENT) USE OF INSULIN (6) Mixed hyperlipidemia Code(s): E78.2 - MIXED HYPERLIPIDEMIA Assessment/Plan 71 y.o. female with IDDM, HTN, HLD, hypothyroidism, likely CKD presenting with shortness of breath/OLIVER/orthopnea with swelling and weight gain and LE b/l R>L oozing ulcerations with surrounding non-improving erythema but improvement in weeping with less LE edema PRECIOUS on CKD Acute diastolic CHF LE edema improving Infected LE ulcers IDDM Diarrhea - started on Unasyn yesterday - collect stool for CDT - if CDT - , consider immodium - if no improvement in erythema may need mrsa coverage
[2017-08-18 14:47] LABS: BASO % 0.9 % (0-2.0); EOS % 4.8 % (0-4.5); LYMPH % 22.6 % (8-40); MCH 29.4 pg (25.7-33.7); MCHC 33.3 g/dl (32.0-36.0); MEAN CELL VOLUME 88.3 fl (80-96); MEAN PLT VOLUME 8.2 fl (7.5-11.1); MONO % 9.9 % (3.8-10.2); NEUT % 61.8 % (42.8-82.8); PLATELET COUNT 229 K/MM3 (134-434); RBC 4.08 M/mm3 (3.60-5.2); RDW 14.7 % (11.6-15.6); WHITE BLOOD COUNT 6.8 K/mm3 (4.0-10.0)
--- NOTE | 2017-08-18 14:52 | PN ---
Progress Note, Physician Chief Complaint: Wants go home History of Present Illness: navid Layne ID consult appreciated Case discussed with Dr Azevedo small dose of Xerxallyn added to IV Lasix - Current Medication List Current Medications: Active Medications Acetaminophen (Tylenol -) 500 mg PO Q6H PRN PRN Reason: FEVER Last Admin: 08/18/17 13:26 Dose: 500 mg Amlodipine Besylate (Norvasc -) 5 mg PO DAILY [facility] Last Admin: 08/18/17 09:11 Dose: 5 mg Aspirin (Asa -) 81 mg PO DAILY [facility] Last Admin: 08/18/17 09:11 Dose: 81 mg Carvedilol (Coreg -) 6.25 mg PO BID [facility] Last Admin: 08/18/17 09:11 Dose: 6.25 mg Furosemide (Lasix Injection -) 80 mg IVPUSH BID@0600,1400 [facility] Last Admin: 08/18/17 13:23 Dose: 80 mg Gabapentin (Neurontin -) 300 mg PO DAILY [facility] Last Admin: 08/18/17 09:11 Dose: 300 mg Heparin Sodium (Porcine) (Heparin -) 5,000 unit SQ BID [facility] Last Admin: 08/18/17 09:11 Dose: 5,000 unit Ampicillin Sodium/Sulbactam (Sodium 3 gm/ Sodium Chloride) 100 mls @ 200 mls/ hr IVPB Q6H-IV [facility] Last Admin: 08/18/17 09:06 Dose: 200 mls/hr Insulin Aspart (Novolog Vial Sliding Scale -) 1 vial SQ ACHS [facility] PRN Reason: Protocol Last Admin: 08/18/17 13:24 Dose: Not Given Levothyroxine Sodium (Synthroid -) 50 mcg PO DAILY@0700 [facility] Last Admin: 08/18/17 06:08 Dose: 50 mcg Metolazone (Zaroxolyn -) 2.5 mg PO DAILY [facility] Last Admin: 08/18/17 13:26 Dose: 2.5 mg Rosuvastatin Calcium (Crestor -) 20 mg PO HS [facility] Last Admin: 08/17/17 21:55 Dose: 20 mg Silver Sulfadiazine (Silvadene -) 1 applic TP DAILY [facility] Last Admin: 08/18/17 13:24 Dose: 1 applic - Objective Vital Signs: Vital Signs Temperature 97.5 F L 08/18/17 09:56 Pulse Rate 70 08/18/17 09:56 Respiratory Rate 18 08/18/17 09:56 Blood Pressure 133/71 08/18/17 09:56 O2 Sat by Pulse Oximetry (%) 97 08/17/17 21:00 Constitutional: Yes: No Distress Eyes: Yes: WNL HENT: Yes: WNL Neck: Yes: WNL Cardiovascular: Yes: Regular Rate and Rhythm Respiratory: Yes: WNL Gastrointestinal: Yes: WNL ...Rectal Exam: Yes: Deferred Breast(s): Yes: WNL Musculoskeletal: Yes: WNL Edema: Yes Edema: LLE: 1+, RLE: 1+ Peripheral Pulses WNL: Yes Wound/Incision: Yes: Dressing Dry and Intact Neurological: Yes: Alert Psychiatric: Yes: Alert Labs: CBC, BMP 08/18/17 07:20 INR, PTT INR 1.13 (0.82-1.09) 08/13/17 14:46 Assessment/Plan Continue same,monitor daily Wts
[2017-08-18] MEDS ORDERED: INSULIN (NOVOLOG) ASPART 100 UNITS/ML 10ML VIAL ONE (20:57)
[2017-08-18] MEDS: ROSUVASTATIN CA 20 MG TABLET (FP) PO SCH (21:10)
[2017-08-19] MEDS: AMPICILLIN NA/SULBACTAM NA 3 GM in SODIUM CHLORIDE 100 ML IVPB SCH ×4 (02:20→21:47)
[2017-08-19] MEDS: FUROSEMIDE 40 MG/4 ML INJECTABLE VIAL IVPUSH SCH ×2 (06:02→14:53)
[2017-08-19] MEDS: LEVOTHYROXINE NA 50 MCG TABLET (FP) PO SCH (06:02)
[2017-08-19] MEDS: INSULIN SLIDING SCALE (NOVOLOG) 1 VIAL SQ SCH ×4 (06:36→21:48)
[2017-08-19 07:59] LABS: CHLORIDE 104 mmol/L (98-107); POTASSIUM 4.1 mmol/L (3.5-5.1); SODIUM 142 mmol/L (136-145)
[2017-08-19] MEDS ORDERED: PT OWN MED DRAWER 7, Y5N ONE ×3 (08:01→21:29)
[2017-08-19 08:14] LABS: ALBUMIN 1.5 g/dl (3.4-5.0); ALK PHOS 59 U/L (45-117); ANION GAP 10 (8-16); BILIRUBIN,TOTAL 0.4 mg/dL (0.2-1.0); BLOOD UREA NITROGEN 45 mg/dL (7-18); CALCIUM 7.8 mg/dL (8.5-10.1); CO2 28 mmol/L (21-32); CREATININE 1.9 mg/dL (0.55-1.02); GLUCOSE,RANDOM 124 mg/dL (74-106); SGOT/AST 27 U/L (15-37); SGPT/ALT 12 U/L (12-78); TOT PROT 4.9 g/dl (6.4-8.2)
[2017-08-19] MEDS: ACETAMINOPHEN 500 MG TABLET (FP) PO PRN ×2 (09:15→20:16)
[2017-08-19] MEDS: HEPARIN NA (PORCINE) 5,000 UNITS/ML 1ML VIAL SQ SCH ×2 (09:15→21:48)
[2017-08-19] MEDS: GABAPENTIN 300 MG CAPSULE (FP) PO SCH (09:16)
[2017-08-19] MEDS: CARVEDILOL 6.25 MG TABLET (FP) PO SCH ×2 (09:16→21:47)
[2017-08-19] MEDS: amLODIPine BESYLATE 5 MG TABLET (FP) PO SCH (09:16)
[2017-08-19] MEDS: METOLAZONE 2.5 MG TABLET (FP) PO SCH ×2 (09:16→13:29)
[2017-08-19] MEDS: ASPIRIN 81 MG CHEWABLE TABLETS PO SCH (09:16)
[2017-08-19] MEDS: SILVER SULFADIAZINE 1% TOP CREAM 50 GM JAR TP SCH (09:16)
--- NOTE | 2017-08-19 09:40 | PN ---
Progress Note, Physician Chief Complaint: Feels better History of Present Illness: Wt came down to 307 Lbs - Current Medication List Current Medications: Active Medications Acetaminophen (Tylenol -) 500 mg PO Q6H PRN PRN Reason: FEVER Last Admin: 08/19/17 09:15 Dose: 500 mg Amlodipine Besylate (Norvasc -) 5 mg PO DAILY [facility] Last Admin: 08/19/17 09:16 Dose: 5 mg Aspirin (Asa -) 81 mg PO DAILY [facility] Last Admin: 08/19/17 09:16 Dose: 81 mg Carvedilol (Coreg -) 6.25 mg PO BID [facility] Last Admin: 08/19/17 09:16 Dose: 6.25 mg Furosemide (Lasix Injection -) 80 mg IVPUSH BID@0600,1400 [facility] Last Admin: 08/19/17 06:02 Dose: 80 mg Gabapentin (Neurontin -) 300 mg PO DAILY [facility] Last Admin: 08/19/17 09:16 Dose: 300 mg Heparin Sodium (Porcine) (Heparin -) 5,000 unit SQ BID [facility] Last Admin: 08/19/17 09:15 Dose: 5,000 unit Ampicillin Sodium/Sulbactam (Sodium 3 gm/ Sodium Chloride) 100 mls @ 200 mls/ hr IVPB Q6H-IV [facility] Last Admin: 08/19/17 09:14 Dose: 200 mls/hr Insulin Aspart (Novolog Vial Sliding Scale -) 1 vial SQ ACHS [facility] PRN Reason: Protocol Last Admin: 08/19/17 06:36 Dose: Not Given Levothyroxine Sodium (Synthroid -) 50 mcg PO DAILY@0700 [facility] Last Admin: 08/19/17 06:02 Dose: 50 mcg Metolazone (Zaroxolyn -) 2.5 mg PO DAILY [facility] Last Admin: 08/19/17 09:16 Dose: 2.5 mg Rosuvastatin Calcium (Crestor -) 20 mg PO HS [facility] Last Admin: 08/18/17 21:10 Dose: 20 mg Silver Sulfadiazine (Silvadene -) 1 applic TP DAILY [facility] Last Admin: 08/19/17 09:16 Dose: 1 applic - Objective Vital Signs: Vital Signs Temperature 97.6 F 08/19/17 09:22 Pulse Rate 75 08/19/17 09:22 Respiratory Rate 18 08/19/17 09:22 Blood Pressure 149/75 08/19/17 09:22 O2 Sat by Pulse Oximetry (%) 97 08/18/17 21:00 Constitutional: Yes: No Distress Eyes: Yes: WNL HENT: Yes: WNL Neck: Yes: WNL Cardiovascular: Yes: WNL Respiratory: Yes: WNL Gastrointestinal: Yes: WNL ...Rectal Exam: Yes: WNL Edema: LLE: 2+, RLE: 2+ Wound/Incision: Yes: Open to air Psychiatric: Yes: Alert Labs: CBC, BMP 08/18/17 14:35 08/19/17 06:42 INR, PTT INR 1.13 (0.82-1.09) 08/13/17 14:46 Assessment/Plan Increase Zroxolin to 5mg
--- NOTE | 2017-08-19 09:48 | PN ---
Progress Note, Physician History of Present Illness: Brisk response to IV diuresis with 18 lbs loss since admission. Anasarca , OLIVER and exercise capacity improving. - Current Medication List Current Medications: Active Medications Acetaminophen (Tylenol -) 500 mg PO Q6H PRN PRN Reason: FEVER Last Admin: 08/19/17 09:15 Dose: 500 mg Amlodipine Besylate (Norvasc -) 5 mg PO DAILY [facility] Last Admin: 08/19/17 09:16 Dose: 5 mg Aspirin (Asa -) 81 mg PO DAILY [facility] Last Admin: 08/19/17 09:16 Dose: 81 mg Carvedilol (Coreg -) 6.25 mg PO BID [facility] Last Admin: 08/19/17 09:16 Dose: 6.25 mg Furosemide (Lasix Injection -) 80 mg IVPUSH BID@0600,1400 [facility] Last Admin: 08/19/17 06:02 Dose: 80 mg Gabapentin (Neurontin -) 300 mg PO DAILY [facility] Last Admin: 08/19/17 09:16 Dose: 300 mg Heparin Sodium (Porcine) (Heparin -) 5,000 unit SQ BID [facility] Last Admin: 08/19/17 09:15 Dose: 5,000 unit Ampicillin Sodium/Sulbactam (Sodium 3 gm/ Sodium Chloride) 100 mls @ 200 mls/ hr IVPB Q6H-IV [facility] Last Admin: 08/19/17 09:14 Dose: 200 mls/hr Insulin Aspart (Novolog Vial Sliding Scale -) 1 vial SQ ACHS [facility] PRN Reason: Protocol Last Admin: 08/19/17 06:36 Dose: Not Given Levothyroxine Sodium (Synthroid -) 50 mcg PO DAILY@0700 [facility] Last Admin: 08/19/17 06:02 Dose: 50 mcg Metolazone (Zaroxolyn -) 5 mg PO DAILY [facility] Rosuvastatin Calcium (Crestor -) 20 mg PO HS [facility] Last Admin: 08/18/17 21:10 Dose: 20 mg Silver Sulfadiazine (Silvadene -) 1 applic TP DAILY [facility] Last Admin: 08/19/17 09:16 Dose: 1 applic - Objective Vital Signs: Vital Signs Temperature 97.6 F 08/19/17 09:22 Pulse Rate 75 08/19/17 09:22 Respiratory Rate 18 08/19/17 09:22 Blood Pressure 149/75 08/19/17 09:22 O2 Sat by Pulse Oximetry (%) 97 08/18/17 21:00 Constitutional: Yes: No Distress, Calm Neck: Yes: Supple Cardiovascular: Yes: Regular Rate and Rhythm Respiratory: Yes: Regular, Diminished Gastrointestinal: Yes: Normal Bowel Sounds, Soft, Abdomen, Obese Edema: Yes Edema: LLE: 1+, RLE: 1+ Labs: CBC, BMP 08/18/17 14:35 08/19/17 06:42 INR, PTT INR 1.13 (0.82-1.09) 08/13/17 14:46 Problem List - Problems (1) Acute on chronic diastolic (congestive) heart failure Code(s): I50.33 - ACUTE ON CHRONIC DIASTOLIC (CONGESTIVE) HEART FAILURE (2) Hypothyroidism Code(s): E03.9 - HYPOTHYROIDISM, UNSPECIFIED Qualifiers: Hypothyroidism type: unspecified Qualified Code(s): E03.9 - Hypothyroidism , unspecified (3) [id number] kidney injury Code(s): N17.9 - ACUTE KIDNEY FAILURE, UNSPECIFIED; N18.9 - CHRONIC KIDNEY DISEASE, UNSPECIFIED (4) Insulin dependent diabetes mellitus Code(s): E11.9 - TYPE 2 DIABETES MELLITUS WITHOUT COMPLICATIONS; 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 (5) Hypertensive cardiomyopathy Code(s): I11.9 - HYPERTENSIVE HEART DISEASE WITHOUT HEART FAILURE; I43 - CARDIOMYOPATHY IN DISEASES CLASSIFIED ELSEWHERE Qualifiers: Heart failure presence: with heart failure Qualified Code(s): I11.0 - Hypertensive heart disease with heart failure; I43 - Cardiomyopathy in diseases classified elsewhere; I43 - Cardiomyopathy in diseases classified elsewhere; I43 - Cardiomyopathy in diseases classified elsewhere; I43 - Cardiomyopathy in diseases classified elsewhere (6) Mixed hyperlipidemia Code(s): E78.2 - MIXED HYPERLIPIDEMIA (7) Hyperuricemia Code(s): E79.0 - HYPERURICEMIA W/O SIGNS OF INFLAM ARTHRIT AND TOPHACEOUS DIS Assessment/Plan Echo: August 09, 2017 Normal LV fxn, ao sclerosis, mild AR, MR, IN, TR, impaired relaxation with elevated filling pressures, diastolic dysfunction, mild LVH, no effusion 1. Acute diastolic heart failure referable to NSAID improving 2. Hypothyroidism 3. Acute on CKD with hyperkalemia and proteinuria referable to #1 4. Insulin-dependent type 2 diabetes mellitus not at goal control 5. Hypertension 6. Mixed hyperlipidemia 7. Hyperuricemia RECOMMENDATIONS: 1. Continue Synthroid 50 ug daily as tolerated per TSH, Norvasc 5 qd, ASA 81 qd 2. Continue carvedilol 6.25 bid with uptitration as tolerated 3. IV and oral diuresis with monitor diuretic response, renal function and electrolytes 4. Hold Valsartan pending resolution of acute on chronic kidney injury and hyperkalemia. 5. Continue Crestor 20 qd, optimize glycemic control 6. DVT prophylaxis, empiric abx for cellulitis, encourage ambulation
[2017-08-19] MEDS ORDERED: METOLAZONE 5 MG TABLET PO SCH (10:00)
[2017-08-19] MEDS ORDERED: METOLAZONE 2.5 MG TABLET (FP) PO ONE (12:00)
--- NOTE | 2017-08-19 13:26 | PN ---
Progress Note, Physician History of Present Illness: patient comfortable no complaints - Current Medication List Current Medications: Active Medications Acetaminophen (Tylenol -) 500 mg PO Q6H PRN PRN Reason: FEVER Last Admin: 08/19/17 09:15 Dose: 500 mg Amlodipine Besylate (Norvasc -) 5 mg PO DAILY [facility] Last Admin: 08/19/17 09:16 Dose: 5 mg Aspirin (Asa -) 81 mg PO DAILY [facility] Last Admin: 08/19/17 09:16 Dose: 81 mg Carvedilol (Coreg -) 6.25 mg PO BID [facility] Last Admin: 08/19/17 09:16 Dose: 6.25 mg Furosemide (Lasix Injection -) 80 mg IVPUSH BID@0600,1400 [facility] Last Admin: 08/19/17 06:02 Dose: 80 mg Gabapentin (Neurontin -) 300 mg PO DAILY [facility] Last Admin: 08/19/17 09:16 Dose: 300 mg Heparin Sodium (Porcine) (Heparin -) 5,000 unit SQ BID [facility] Last Admin: 08/19/17 09:15 Dose: 5,000 unit Ampicillin Sodium/Sulbactam (Sodium 3 gm/ Sodium Chloride) 100 mls @ 200 mls/ hr IVPB Q6H-IV [facility] Last Admin: 08/19/17 09:14 Dose: 200 mls/hr Insulin Aspart (Novolog Vial Sliding Scale -) 1 vial SQ ACHS [facility] PRN Reason: Protocol Last Admin: 08/19/17 12:29 Dose: Not Given Levothyroxine Sodium (Synthroid -) 50 mcg PO DAILY@0700 [facility] Last Admin: 08/19/17 06:02 Dose: 50 mcg Metolazone (Zaroxolyn -) 5 mg PO DAILY@0530,1330 [facility] Rosuvastatin Calcium (Crestor -) 20 mg PO HS [facility] Last Admin: 08/18/17 21:10 Dose: 20 mg Silver Sulfadiazine (Silvadene -) 1 applic TP DAILY [facility] Last Admin: 08/19/17 09:16 Dose: 1 applic - Objective Vital Signs: Vital Signs Temperature 97.6 F 08/19/17 09:22 Pulse Rate 75 08/19/17 09:22 Respiratory Rate 18 08/19/17 09:22 Blood Pressure 149/75 08/19/17 09:22 O2 Sat by Pulse Oximetry (%) 97 08/19/17 09:00 Constitutional: Yes: No Distress, Calm, Obese, Other (sleeping) Cardiovascular: Yes: Regular Rate and Rhythm Respiratory: Yes: Regular, CTA Bilaterally Gastrointestinal: Yes: Normal Bowel Sounds, Soft Extremities: Yes: Erythema Edema: LLE: 2+, RLE: 2+ Integumentary: Yes: Erythema Neurological: Yes: Alert, Oriented Psychiatric: Yes: Alert Labs: CBC, BMP 08/18/17 14:35 08/19/17 06:42 INR, PTT INR 1.13 (0.82-1.09) 08/13/17 14:46 Assessment/Plan Problem List - Problems (1) Acute on chronic diastolic (congestive) heart failure Code(s): I50.33 - ACUTE ON CHRONIC DIASTOLIC (CONGESTIVE) HEART FAILURE (2) Ggdtm-mf-gnoswib kidney injury Code(s): N17.9 - ACUTE KIDNEY FAILURE, UNSPECIFIED; N18.9 - CHRONIC KIDNEY DISEASE, UNSPECIFIED (3) Hyperuricemia Code(s): E79.0 - HYPERURICEMIA W/O SIGNS OF INFLAM ARTHRIT AND TOPHACEOUS DIS (4) Hypothyroidism Code(s): E03.9 - HYPOTHYROIDISM, UNSPECIFIED Qualifiers: Hypothyroidism type: unspecified Qualified Code(s): E03.9 - Hypothyroidism , unspecified (5) Insulin dependent diabetes mellitus Code(s): E11.9 - TYPE 2 DIABETES MELLITUS WITHOUT COMPLICATIONS; 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
--- NOTE | 2017-08-19 19:14 | PN ---
Progress Note (short form) - Note Progress Note: Renal Follow up for PRECIOUS vs. CKD Pt seen and examined at the bedside n acute complaints no sob, chest pain leg swelling improved making urine Vital Signs Temperature 98.1 F 08/19/17 18:24 Pulse Rate 68 08/19/17 18:24 Respiratory Rate 20 08/19/17 18:24 Blood Pressure 138/82 08/19/17 18:24 O2 Sat by Pulse Oximetry (%) 97 08/19/17 09:00 Intake & Output 08/16/17 08/17/17 08/18/17 08/19/17 23:59 23:59 23:59 23:59 Intake Total 50 128 800 300 Output Total 2350 300 3600 3300 Balance -2300 -172 -2800 -3000 Weight 142.882 kg 141.974 kg 139.706 kg 139.434 kg NAD awake and alert MMM, No JVD Neck supple RRR, No M/R Dec BS at right lung base, no wheeze, rales soft, obsese, NT/ND + LE edema, no cyanosis or clubbing CBC, BMP 08/18/17 14:35 08/19/17 06:42 Current Medications Acetaminophen (Tylenol -) 500 mg PO Q6H PRN PRN Reason: FEVER Last Admin: 08/19/17 09:15 Dose: 500 mg Amlodipine Besylate (Norvasc -) 5 mg PO DAILY [facility] Last Admin: 08/19/17 09:16 Dose: 5 mg Aspirin (Asa -) 81 mg PO DAILY [facility] Last Admin: 08/19/17 09:16 Dose: 81 mg Carvedilol (Coreg -) 6.25 mg PO BID [facility] Last Admin: 08/19/17 09:16 Dose: 6.25 mg Furosemide (Lasix Injection -) 80 mg IVPUSH BID@0600,1400 [facility] Last Admin: 08/19/17 14:53 Dose: 80 mg Gabapentin (Neurontin -) 300 mg PO DAILY [facility] Last Admin: 08/19/17 09:16 Dose: 300 mg Heparin Sodium (Porcine) (Heparin -) 5,000 unit SQ BID [facility] Last Admin: 08/19/17 09:15 Dose: 5,000 unit Ampicillin Sodium/Sulbactam (Sodium 3 gm/ Sodium Chloride) 100 mls @ 200 mls/ hr IVPB Q6H-IV [facility] Last Admin: 08/19/17 14:53 Dose: 200 mls/hr Insulin Aspart (Novolog Vial Sliding Scale -) 1 vial SQ ACHS [facility] PRN Reason: Protocol Last Admin: 08/19/17 16:44 Dose: Not Given Levothyroxine Sodium (Synthroid -) 50 mcg PO DAILY@0700 [facility] Last Admin: 08/19/17 06:02 Dose: 50 mcg Metolazone (Zaroxolyn -) 5 mg PO DAILY@0530,1330 [facility] Last Admin: 08/19/17 13:29 Dose: 5 mg Rosuvastatin Calcium (Crestor -) 20 mg PO HS [facility] Last Admin: 08/18/17 21:10 Dose: 20 mg Silver Sulfadiazine (Silvadene -) 1 applic TP DAILY [facility] Last Admin: 08/19/17 09:16 Dose: 1 applic This is a 71 year old woman wit PMhx of Hypertension x 30 + years, DM Type 2 on insulin, Hypothyrodism, Hyperurecemia, Obesity who presented with SOB/OLIVER and increasing swelling and admitted for acute HF with PRECIOUS. #Acute Kidney injury likely due to renal hypoprofusion/ischemia due to NSAIDs #Nephrotic range proteinuria likely due to diabetic nephropathy #Anasarca/Acute HF #Hypertension #Hyperkalemia due to NSAIDs + renal insufficiency Renal function remains stable at the time and pt is non-oliguric the present time Pt with 17 lb weight loss with lasix during admission continue lasix and metolazone fo now pt with nephrotic range proteinuria (JORDON and Anti-DS DNA negative, SPEP pending) will need MARY JANE/ARB but once off IV lasix and renal function stable Arvind Lemus DO
[2017-08-19] MEDS: ROSUVASTATIN CA 20 MG TABLET (FP) PO SCH (21:47)
[2017-08-20] MEDS: AMPICILLIN NA/SULBACTAM NA 3 GM in SODIUM CHLORIDE 100 ML IVPB SCH ×4 (02:14→20:38)
[2017-08-20] MEDS: METOLAZONE 2.5 MG TABLET (FP) PO SCH ×2 (05:27→13:19)
[2017-08-20] MEDS ORDERED: PT OWN MED DRAWER 7, Y5N ONE ×3 (05:27→20:30)
[2017-08-20] MEDS: FUROSEMIDE 40 MG/4 ML INJECTABLE VIAL IVPUSH SCH ×2 (05:51→13:53)
[2017-08-20] MEDS: INSULIN SLIDING SCALE (NOVOLOG) 1 VIAL SQ SCH ×4 (05:59→21:05)
[2017-08-20] MEDS: LEVOTHYROXINE NA 50 MCG TABLET (FP) PO SCH (05:59)
--- NOTE | 2017-08-20 08:09 | PN ---
Progress Note (short form) - Note Progress Note: Chief Complaint: Events noted, notes reviewed, denies any chest pain, dyspnea improving, peripheral edema persists but improved History of Present Illness: Seen and examined n telemetry. Events noted, notes reviewed, denies any chest pain, dyspnea improving, peripheral edema persists but improved Echocardiography dated August 09, 2017 revealed normal LV function, AV sclerosis, mild AR, MR, and TR, impaired relaxation with elevated filling pressures, diastolic dysfunction, mild LVH, no pericardial effusion - Current Medication List Current Medications: Active Medications Current Medications Acetaminophen (Tylenol -) 500 mg PO Q6H PRN PRN Reason: FEVER Last Admin: 08/19/17 20:16 Dose: 500 mg Amlodipine Besylate (Norvasc -) 5 mg PO DAILY [facility] Last Admin: 08/19/17 09:16 Dose: 5 mg Aspirin (Asa -) 81 mg PO DAILY [facility] Last Admin: 08/19/17 09:16 Dose: 81 mg Carvedilol (Coreg -) 6.25 mg PO BID [facility] Last Admin: 08/19/17 21:47 Dose: 6.25 mg Furosemide (Lasix Injection -) 80 mg IVPUSH BID@0600,1400 [facility] Last Admin: 08/20/17 05:51 Dose: 80 mg Gabapentin (Neurontin -) 300 mg PO DAILY [facility] Last Admin: 08/19/17 09:16 Dose: 300 mg Heparin Sodium (Porcine) (Heparin -) 5,000 unit SQ BID [facility] Last Admin: 08/19/17 21:48 Dose: 5,000 unit Ampicillin Sodium/Sulbactam (Sodium 3 gm/ Sodium Chloride) 100 mls @ 200 mls/ hr IVPB Q6H-IV [facility] Last Admin: 08/20/17 02:14 Dose: 200 mls/hr Insulin Aspart (Novolog Vial Sliding Scale -) 1 vial SQ ACHS [facility] PRN Reason: Protocol Last Admin: 08/20/17 05:59 Dose: Not Given Levothyroxine Sodium (Synthroid -) 50 mcg PO DAILY@0700 [facility] Last Admin: 08/20/17 05:59 Dose: 50 mcg Metolazone (Zaroxolyn -) 5 mg PO DAILY@0530,1330 [facility] Last Admin: 08/20/17 05:27 Dose: 5 mg Rosuvastatin Calcium (Crestor -) 20 mg PO HS [facility] Last Admin: 08/19/17 21:47 Dose: 20 mg Silver Sulfadiazine (Silvadene -) 1 applic TP DAILY [facility] Last Admin: 08/19/17 09:16 Dose: 1 applic Review of Systems Cardiovascular: As noted above Respiratory: denies: Cough or Sputum Production Gastrointestinal: denies: Nausea, Vomiting, Diarrhea, Constipation or Abdominal Discomfort Musculoskeletal: No Symptoms Reported Endocrine: Hypothyroidism and DM - Objective Vital Signs: Last Vital Signs Temp Pulse Resp BP Pulse Ox 98.6 F 72 20 122/85 96 08/20/17 06:00 08/20/17 06:00 08/20/17 06:00 08/20/17 06:00 08/19/17 21:00 Intake & Output 08/17/17 08/18/17 08/19/17 08/20/17 23:59 23:59 23:59 23:59 Intake Total 128 800 300 400 Output Total 300 3600 5500 900 Balance -172 -2800 -5200 -500 Weight 313 lb 308 lb 307 lb 6.4 oz 304 lb 8 oz Constitutional: No Distress, Calm Neck: Supple Negative JVD Cardiovascular: S1 S2 Regular Rate and Rhythm Respiratory: Diminished Breath sounds at the Bases Gastrointestinal: Soft Benign Normal Bowel Sounds Ext: Bilateral Edema 1-2+ Labs: CBC, BMP 08/18/17 14:35 INR, PTT INR 1.13 (0.82-1.09) 08/13/17 14:46 Assessment/Plan ASSESSMENT: 1. Acute on chronic class II NYHA classification LV failure related to diastolic LV dysfunction, resolving 2. 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 HTN 4. DM 5. Mixed dyslipedemia 6. Hypothyroidism 7. Acute on CKD with hyperkalemia 8. Hyperuricemia PLAN: 1. Continue Coreg and titrate as tolerated 2. Continue Norvasc 3. Ideally ACEI or ARBS to be re-initiated once renal function stabilizes and at baseline 4. Continue Lasix IV for 24 hours and then switch to PO therapy with caution and close monitoring of renal function 5. Continue Zaroxylyn therapy with caution and close monitoring of renal function 6. Continue ASA 7. Continue Crestor 8. Continue Synthroid 9. Ambulate and counselled dietary compliance/caloric restriction and weight reduction Lovely Bay MD
--- NOTE | 2017-08-20 09:17 | PN ---
Progress Note, Physician Chief Complaint: Feels better - Current Medication List Current Medications: Active Medications Acetaminophen (Tylenol -) 500 mg PO Q6H PRN PRN Reason: FEVER Last Admin: 08/19/17 20:16 Dose: 500 mg Amlodipine Besylate (Norvasc -) 5 mg PO DAILY [facility] Last Admin: 08/19/17 09:16 Dose: 5 mg Aspirin (Asa -) 81 mg PO DAILY [facility] Last Admin: 08/19/17 09:16 Dose: 81 mg Carvedilol (Coreg -) 6.25 mg PO BID [facility] Last Admin: 08/19/17 21:47 Dose: 6.25 mg Furosemide (Lasix Injection -) 80 mg IVPUSH BID@0600,1400 [facility] Last Admin: 08/20/17 05:51 Dose: 80 mg Gabapentin (Neurontin -) 300 mg PO DAILY [facility] Last Admin: 08/19/17 09:16 Dose: 300 mg Heparin Sodium (Porcine) (Heparin -) 5,000 unit SQ BID [facility] Last Admin: 08/19/17 21:48 Dose: 5,000 unit Ampicillin Sodium/Sulbactam (Sodium 3 gm/ Sodium Chloride) 100 mls @ 200 mls/ hr IVPB Q6H-IV [facility] Last Admin: 08/20/17 02:14 Dose: 200 mls/hr Insulin Aspart (Novolog Vial Sliding Scale -) 1 vial SQ ACHS [facility] PRN Reason: Protocol Last Admin: 08/20/17 05:59 Dose: Not Given Levothyroxine Sodium (Synthroid -) 50 mcg PO DAILY@0700 [facility] Last Admin: 08/20/17 05:59 Dose: 50 mcg Metolazone (Zaroxolyn -) 5 mg PO DAILY@0530,1330 [facility] Last Admin: 08/20/17 05:27 Dose: 5 mg Rosuvastatin Calcium (Crestor -) 20 mg PO HS [facility] Last Admin: 08/19/17 21:47 Dose: 20 mg Silver Sulfadiazine (Silvadene -) 1 applic TP DAILY [facility] Last Admin: 08/19/17 09:16 Dose: 1 applic - Objective Vital Signs: Vital Signs Temperature 98.6 F 08/20/17 06:00 Pulse Rate 72 08/20/17 06:00 Respiratory Rate 20 08/20/17 06:00 Blood Pressure 122/85 08/20/17 06:00 O2 Sat by Pulse Oximetry (%) 96 08/19/17 21:00 Constitutional: Yes: No Distress Eyes: Yes: WNL HENT: Yes: WNL Neck: Yes: WNL Cardiovascular: Yes: Regular Rate and Rhythm Respiratory: Yes: SOB on Exertion Gastrointestinal: Yes: Normal Bowel Sounds ...Rectal Exam: Yes: Deferred Genitourinary: Yes: WNL Edema: LLE: 1+, RLE: 1+ Wound/Incision: Yes: Open to air Labs: CBC, BMP 08/18/17 14:35 INR, PTT INR 1.13 (0.82-1.09) 08/13/17 14:46 Assessment/Plan continue same trt
[2017-08-20] MEDS: amLODIPine BESYLATE 5 MG TABLET (FP) PO SCH (10:08)
[2017-08-20] MEDS: ASPIRIN 81 MG CHEWABLE TABLETS PO SCH (10:08)
[2017-08-20] MEDS: HEPARIN NA (PORCINE) 5,000 UNITS/ML 1ML VIAL SQ SCH ×2 (10:08→21:04)
[2017-08-20] MEDS: GABAPENTIN 300 MG CAPSULE (FP) PO SCH (10:08)
[2017-08-20] MEDS: SILVER SULFADIAZINE 1% TOP CREAM 50 GM JAR TP SCH (10:08)
[2017-08-20] MEDS: CARVEDILOL 6.25 MG TABLET (FP) PO SCH ×2 (10:08→21:05)
[2017-08-20 11:06] LABS: ANION GAP 10 (8-16); BLOOD UREA NITROGEN 43 mg/dL (7-18); CALCIUM 7.9 mg/dL (8.5-10.1); CHLORIDE 103 mmol/L (98-107); CO2 28 mmol/L (21-32); CREATININE 2.1 mg/dL (0.55-1.02); GLUCOSE,RANDOM 129 mg/dL (74-106); MAGNESIUM 2.3 mg/dL (1.8-2.4); PHOSPHOROUS 5.2 mg/dL (2.5-4.9); SODIUM 141 mmol/L (136-145)
--- NOTE | 2017-08-20 13:35 | PN ---
Progress Note, Physician History of Present Illness: doing well redness starting to look much better left leg much better rt also improving - Current Medication List Current Medications: Active Medications Acetaminophen (Tylenol -) 500 mg PO Q6H PRN PRN Reason: FEVER Last Admin: 08/19/17 20:16 Dose: 500 mg Amlodipine Besylate (Norvasc -) 5 mg PO DAILY [facility] Last Admin: 08/20/17 10:08 Dose: 5 mg Aspirin (Asa -) 81 mg PO DAILY [facility] Last Admin: 08/20/17 10:08 Dose: 81 mg Carvedilol (Coreg -) 6.25 mg PO BID [facility] Last Admin: 08/20/17 10:08 Dose: 6.25 mg Furosemide (Lasix Injection -) 80 mg IVPUSH BID@0600,1400 [facility] Last Admin: 08/20/17 05:51 Dose: 80 mg Gabapentin (Neurontin -) 300 mg PO DAILY [facility] Last Admin: 08/20/17 10:08 Dose: 300 mg Heparin Sodium (Porcine) (Heparin -) 5,000 unit SQ BID [facility] Last Admin: 08/20/17 10:08 Dose: 5,000 unit Ampicillin Sodium/Sulbactam (Sodium 3 gm/ Sodium Chloride) 100 mls @ 200 mls/ hr IVPB Q6H-IV [facility] Last Admin: 08/20/17 10:08 Dose: 200 mls/hr Insulin Aspart (Novolog Vial Sliding Scale -) 1 vial SQ ACHS [facility] PRN Reason: Protocol Last Admin: 08/20/17 11:49 Dose: Not Given Levothyroxine Sodium (Synthroid -) 50 mcg PO DAILY@0700 [facility] Last Admin: 08/20/17 05:59 Dose: 50 mcg Metolazone (Zaroxolyn -) 5 mg PO DAILY@0530,1330 [facility] Last Admin: 08/20/17 13:19 Dose: 5 mg Rosuvastatin Calcium (Crestor -) 20 mg PO HS [facility] Last Admin: 08/19/17 21:47 Dose: 20 mg Silver Sulfadiazine (Silvadene -) 1 applic TP DAILY [facility] Last Admin: 08/20/17 10:08 Dose: 1 applic - Objective Vital Signs: Vital Signs Temperature 98.6 F 08/20/17 06:00 Pulse Rate 72 08/20/17 06:00 Respiratory Rate 20 08/20/17 06:00 Blood Pressure 122/85 08/20/17 06:00 O2 Sat by Pulse Oximetry (%) 96 08/19/17 21:00 Constitutional: Yes: No Distress, Calm, Obese Neck: Yes: Supple, Trachea Midline Cardiovascular: Yes: S1, S2 Respiratory: Yes: Regular, CTA Bilaterally Gastrointestinal: Yes: Normal Bowel Sounds, Soft Musculoskeletal: Yes: Other Extremities: Yes: Other Edema: LLE: 2+, RLE: 2+ Neurological: Yes: Alert, Oriented Psychiatric: Yes: Alert, Oriented Labs: CBC, BMP 08/18/17 14:35 08/20/17 05:45 INR, PTT INR 1.13 (0.82-1.09) 08/13/17 14:46 Assessment/Plan Problem List - Problems (1) Acute on chronic diastolic (congestive) heart failure Code(s): I50.33 - ACUTE ON CHRONIC DIASTOLIC (CONGESTIVE) HEART FAILURE (2) Tlppa-gr-yxdgsih kidney injury Code(s): N17.9 - ACUTE KIDNEY FAILURE, UNSPECIFIED; N18.9 - CHRONIC KIDNEY DISEASE, UNSPECIFIED (3) Hyperuricemia Code(s): E79.0 - HYPERURICEMIA W/O SIGNS OF INFLAM ARTHRIT AND TOPHACEOUS DIS (4) Hypothyroidism Code(s): E03.9 - HYPOTHYROIDISM, UNSPECIFIED Qualifiers: Hypothyroidism type: unspecified Qualified Code(s): E03.9 - Hypothyroidism , unspecified (5) Insulin dependent diabetes mellitus Code(s): E11.9 - TYPE 2 DIABETES MELLITUS WITHOUT COMPLICATIONS; Z79.4 - [facility] (CURRENT) USE OF INSULIN (6) Mixed hyperlipidemia Code(s): E78.2 - MIXED HYPERLIPIDEMIA Assessment/Plan PRECIOUS on CKD Acute diastolic CHF LE edema improving Infected LE ulcers IDDM Diarrhea plan continue abx for now elevation of leg patient being diuresed loosing weight
--- NOTE | 2017-08-20 16:34 | PN ---
Progress Note (short form) - Note Progress Note: Renal Follow up for PRECIOUS vs. CKD Pt seen and examined at the bedside feels well no acute complaints no sob, chest pain, abd pain making urine leg swelling improving Vital Signs Temperature 98.3 F 08/20/17 14:04 Pulse Rate 67 08/20/17 14:04 Respiratory Rate 16 08/20/17 14:04 Blood Pressure 136/77 08/20/17 14:04 O2 Sat by Pulse Oximetry (%) 96 08/20/17 09:00 Intake & Output 08/17/17 08/18/17 08/19/17 08/20/17 23:59 23:59 23:59 23:59 Intake Total 128 751 730 5650 Output Total 300 3600 5500 1825 Balance -172 -2800 -5200 -675 Weight 141.974 kg 139.706 kg 139.434 kg 138.119 kg NAD Neck supple RRR, No M/R Dec BS at right lung base, no wheeze, rales soft, obese, NT/ND + LE edema CBC, BMP 08/18/17 14:35 08/20/17 05:45 Laboratory Tests 08/15/17 08/20/17 05:35 05:45 Calcium 7.7 L 7.9 L Phosphorus 5.2 H 5.2 H Magnesium 2.3 Albumin 1.5 L Current Medications Acetaminophen (Tylenol -) 500 mg PO Q6H PRN PRN Reason: FEVER Last Admin: 08/19/17 20:16 Dose: 500 mg Amlodipine Besylate (Norvasc -) 5 mg PO DAILY [facility] Last Admin: 08/20/17 10:08 Dose: 5 mg Aspirin (Asa -) 81 mg PO DAILY [facility] Last Admin: 08/20/17 10:08 Dose: 81 mg Carvedilol (Coreg -) 6.25 mg PO BID [facility] Last Admin: 08/20/17 10:08 Dose: 6.25 mg Furosemide (Lasix Injection -) 80 mg IVPUSH BID@0600,1400 [facility] Last Admin: 08/20/17 13:53 Dose: 80 mg Gabapentin (Neurontin -) 300 mg PO DAILY [facility] Last Admin: 08/20/17 10:08 Dose: 300 mg Heparin Sodium (Porcine) (Heparin -) 5,000 unit SQ BID [facility] Last Admin: 08/20/17 10:08 Dose: 5,000 unit Ampicillin Sodium/Sulbactam (Sodium 3 gm/ Sodium Chloride) 100 mls @ 200 mls/ hr IVPB Q6H-IV [facility] Last Admin: 08/20/17 14:38 Dose: 200 mls/hr Insulin Aspart (Novolog Vial Sliding Scale -) 1 vial SQ ACHS [facility] PRN Reason: Protocol Last Admin: 08/20/17 11:49 Dose: Not Given Levothyroxine Sodium (Synthroid -) 50 mcg PO DAILY@0700 [facility] Last Admin: 08/20/17 05:59 Dose: 50 mcg Metolazone (Zaroxolyn -) 5 mg PO DAILY@0530,1330 [facility] Last Admin: 08/20/17 13:19 Dose: 5 mg Rosuvastatin Calcium (Crestor -) 20 mg PO HS [facility] Last Admin: 08/19/17 21:47 Dose: 20 mg Silver Sulfadiazine (Silvadene -) 1 applic TP DAILY [facility] Last Admin: 08/20/17 10:08 Dose: 1 applic This is a 71 year old woman wit PMhx of Hypertension x 30 + years, DM Type 2 on insulin, Hypothyrodism, Hyperurecemia, Obesity who presented with SOB/OLIVER and increasing swelling and admitted for acute HF with PRECIOUS. #Acute Kidney injury likely due to renal hypoprofusion/ischemia due to NSAIDs #Nephrotic range proteinuria likely due to diabetic nephropathy #Anasarca/Acute HF #Hypertension #Hyperkalemia due to NSAIDs + renal insufficiency Renal function is stable at this time continue IV lasix and Metoazone as per Cardiology transition to oral diuretics tomorrow (torsemdie 60-80mg) + metolazone will need close monitoring of renal function as outpatient JORDON negative, SPEP pending Arvind Lemus DO
[2017-08-20] MEDS ORDERED: INSULIN (NOVOLOG) ASPART 100 UNITS/ML 10ML VIAL ONE (21:04)
[2017-08-20] MEDS: ROSUVASTATIN CA 20 MG TABLET (FP) PO SCH (21:05)
[2017-08-21] MEDS ORDERED: PT OWN MED DRAWER 7, Y5N ONE (02:24)
[2017-08-21] MEDS: AMPICILLIN NA/SULBACTAM NA 3 GM in SODIUM CHLORIDE 100 ML IVPB SCH ×2 (02:28→10:23)
[2017-08-21] MEDS: METOLAZONE 2.5 MG TABLET (FP) PO SCH (05:20)
[2017-08-21] MEDS: INSULIN SLIDING SCALE (NOVOLOG) 1 VIAL SQ SCH (06:04)
[2017-08-21] MEDS: FUROSEMIDE 40 MG/4 ML INJECTABLE VIAL IVPUSH SCH (06:07)
[2017-08-21] MEDS: LEVOTHYROXINE NA 50 MCG TABLET (FP) PO SCH (06:07)
[2017-08-21 06:52] LABS: CHLORIDE 103 mmol/L (98-107); POTASSIUM 3.9 mmol/L (3.5-5.1); SODIUM 142 mmol/L (136-145)
[2017-08-21 07:02] LABS: ANION GAP 9 (8-16); BLOOD UREA NITROGEN 45 mg/dL (7-18); CALCIUM 7.7 mg/dL (8.5-10.1); CO2 30 mmol/L (21-32); GLUCOSE,RANDOM 128 mg/dL (74-106); MAGNESIUM 2.2 mg/dL (1.8-2.4); PHOSPHOROUS 5.3 mg/dL (2.5-4.9)
--- NOTE | 2017-08-21 09:32 | DS ---
Physical Examination Vital Signs: Vital Signs Temperature 97.7 F 08/21/17 06:00 Pulse Rate 71 08/21/17 06:00 Respiratory Rate 20 08/21/17 06:00 Blood Pressure 143/67 08/21/17 06:00 O2 Sat by Pulse Oximetry (%) 94 L 08/20/17 21:00 Findings/Remarks: Admitted with SOB and anasarca No asites,renal insufficiency present,treated with IV lasix and PO xaroxolyn Improved Constitutional: Yes: No Distress Eyes: Yes: WNL HENT: Yes: WNL Neck: Yes: WNL Cardiovascular: Yes: Regular Rate and Rhythm Respiratory: Yes: WNL Gastrointestinal: Yes: WNL ...Rectal Exam: Yes: Deferred Renal/: Yes: WNL Musculoskeletal: Yes: Muscle Weakness Edema: Yes Edema: LLE: 2+, RLE: 2+ Wound/Incision: Yes: Open to air Psychiatric: Yes: Alert Labs: CBC, BMP 08/18/17 14:35 08/21/17 06:00 Discharge Summary Reason For Visit: CONGESTIVE HEART FAILURE Current Active Problems Acute on chronic diastolic (congestive) heart failure (Acute) [id number] kidney injury (Acute) CHF (congestive heart failure) (Acute) Hypertensive cardiomyopathy (Acute) Hyperuricemia (Acute) Hypothyroidism (Acute) Insulin dependent diabetes mellitus (Acute) Mixed hyperlipidemia (Acute) Condition: Stable - Instructions Referrals: Vamshi Rogers MD [Primary Care Provider] - - Home Medications Comprehensive Discharge Medication List: Ambulatory Orders Alendronate Sodium [Fosamax] 10 mg PO WEEKLY 09/19/15 Allopurinol [Zyloprim -] 100 mg PO DAILY 09/19/15 Amlodipine Besylate [Norvasc -] 10 mg PO DAILY 09/19/15 Fenofibrate,Micronized [Fenofibrate] 134 mg PO DAILY 09/19/15 Gabapentin [Neurontin -] 100 mg PO DAILY 09/19/15 Multivitamin with Minerals [Icaps Plus] 1 each PO DAILY 09/19/15 Sitagliptin Phos/Metformin HCl [Janumet 50-1,000 mg Tablet] 1 each PO DAILY Omeprazole [Prilosec] 40 mg PO DAILY #60 capsule. 09/20/15 Insulin (Novolog 70/30) [Novolog Mix 70/30 Flexpen -] 18 units SQ BIDAC
[2017-08-21] MEDS: ASPIRIN 81 MG CHEWABLE TABLETS PO SCH (10:22)
[2017-08-21] MEDS: GABAPENTIN 300 MG CAPSULE (FP) PO SCH (10:22)
[2017-08-21] MEDS: CARVEDILOL 6.25 MG TABLET (FP) PO SCH (10:23)
[2017-08-21] MEDS: amLODIPine BESYLATE 5 MG TABLET (FP) PO SCH (10:23)
[2017-08-21] MEDS: SILVER SULFADIAZINE 1% TOP CREAM 50 GM JAR TP SCH (10:23)
[2017-08-21 10:29] VITALS: BP 166/87; PULSE 70; TEMP 98.7
== END 2017-08-21 10:45 | disposition home or self-care (01) | DRG 291 ==
LOC: JER 13:33 → JERBED 16:41 → J4S 22:48
PROVIDERS: ADMIT Internal Medicine; ATTEND Internal Medicine
DX: I13.0 Hypertensive heart and chronic kidney disease with heart failure and stage 1 through stage 4 chronic kidney disease, or unspecified chronic kidney disease (principal); I50.33 Acute on chronic diastolic (congestive) heart failure; N17.9 Acute kidney failure, unspecified; L03.115 Cellulitis of right lower limb; L97.829 Non-pressure chronic ulcer of other part of left lower leg with unspecified severity; Z68.43 Body mass index [BMI] 50.0-59.9, adult; L97.919 Non-pressure chronic ulcer of unspecified part of right lower leg with unspecified severity; E11.22 Type 2 diabetes mellitus with diabetic chronic kidney disease; R60.1 Generalized edema; E03.9 Hypothyroidism, unspecified; Z79.4 Long term (current) use of insulin; E78.2 Mixed hyperlipidemia; E87.5 Hyperkalemia; R19.7 Diarrhea, unspecified; N18.9 Chronic kidney disease, unspecified; E11.622 Type 2 diabetes mellitus with other skin ulcer; E66.9 Obesity, unspecified
CPT/HCPCS: 36415; 71045-TC-FY; 76700-TC; 76775-TC; 80048; 80053; 80061; 80074; 81003; 81015; 82550; 82553; 82570; 82962; 83036; 83721; 83735; 83880; 84100; 84155; 84156; 84165; 84300; 84443; 84484; 84550; 85025; 85610; 86038; 86225; 86593; 87324; 87449; 93005; 93010; 97116-GP; 97161-GP; 99283-25; J1644

== ENCOUNTER 2018-10-07 15:05 | Inpatient (IN) | payer OTHER ==
--- NOTE | 2018-10-07 16:17 | PDOC ---
History of Present Illness <Yoanna Patricia - Last Filed: 10/07/18 18:10> - General History Source: Patient, Family - History of Present Illness Initial Comments: 10/07/18 16:16 The patient is a 73 year old female with a PMH of CHF, Gout, IDDM, Hypothyroidism and HTN who presents to the ED following an episode of confusion. Family at bedside assists in history and states patient was sleeping today and when she woke up she was not making sense, stating unrelated words to form a thought H/o 2-3 of productive cough. Family denies any recent known medication changes, travel or sick contacts. Patient now at baseline mental status. EMS called and reports patient febrile on the scene. NKDA Surgical: appendectomy, cholecystectomy PMD: Dr. Vamshi Rogers M.D. <Tonja Machado - Last Filed: 10/15/18 09:16> - General Chief Complaint: Shortness of Breath Stated Complaint: Shortness of Breath Time Seen by Provider: 10/07/18 15:39 Past History <BelemYoannatanner Chang - Last Filed: 10/07/18 18:10> - Past Medical History Anemia: No Asthma: No Cancer: Yes (CERVICAL, melanoma RLE) Cardiac Disorders: No CVA: No COPD: Yes CHF: Yes Dementia: No Diabetes: Yes (diabetic neuropathy) GI Disorders: Yes (GASTRIC POLYPS) Disorders: Yes (ACUTE CKD) HTN: Yes Hypercholesterolemia: Yes Liver Disease: No Seizures: No Thyroid Disease: Yes (hypo) - Surgical History Abdominal Surgery: No Appendectomy: Yes Cardiac Surgery: No Cholecystectomy: Yes Lung Surgery: No Neurologic Surgery: No Orthopedic Surgery: No - Suicide/Smoking/Psychosocial Hx Smoking History: Never smoked Have you smoked in the past 12 months: No Information on smoking cessation initiated: No Hx Alcohol Use: No Drug/Substance Use Hx: No Substance Use Type: None Hx Substance Use Treatment: No <Tonja Machado - Last Filed: 10/15/18 09:16> - Past Medical History Allergies/Adverse Reactions: Allergies Allergy/AdvReac Type Severity Reaction Status Date / Time shellfish derived Allergy Verified 10/07/18 15:27 Home Medications: Ambulatory Orders Alendronate Sodium [Fosamax] 10 mg PO WEEKLY 09/19/15 Allopurinol [Zyloprim -] 100 mg PO DAILY 09/19/15 Gabapentin [Neurontin -] 300 mg PO HS 09/19/15 Insulin (Novolog 70/30) [Novolog Mix 70/30 Flexpen -] 20 units SQ BIDAC Amlodipine Besylate [Norvasc -] 5 mg PO DAILY tablet 08/21/17 Aspirin [ASA -] 81 mg PO DAILY tab.chew 08/21/17 Carvedilol [Coreg -] 6.25 mg PO BID tablet 08/21/17 Levothyroxine [Synthroid -] 50 mcg PO DAILY@0700 tablet 08/21/17 Empagliflozin [Jardiance] 0 mg PO DAILY 10/07/18 Furosemide 40 mg PO DAILY 10/07/18 Metolazone [Zaroxolyn -] 5 mg PO DAILY 10/07/18 Rosuvastatin [Crestor -] 20 mg PO DAILY 10/07/18 Icosapent Ethyl [Vascepa] 1 gm PO BID 10/08/18 Acetaminophen [Tylenol .Regular Strength -] 650 mg PO Q6H PRN tablet 10/12/18 Allopurinol [Zyloprim -] 100 mg PO DAILY tablet 10/12/18 Amlodipine Besylate [Norvasc -] 5 mg PO DAILY tablet 10/12/18 Aspirin [ASA -] 81 mg PO DAILY tab.chew 10/12/18 Carvedilol [Coreg -] 6.25 mg PO BID tablet 10/12/18 Furosemide [Lasix -] 40 mg PO DAILY tablet 10/12/18 Gabapentin [Neurontin -] 300 mg PO HS capsule 10/12/18 Insulin (Novolog 70/30) [Novolog Mix 70/30 Vial -] 20 units SQ BIDI units 10/12 Levothyroxine [Synthroid -] 50 mcg PO DAILY@0700 tablet 10/12/18 Metolazone [Zaroxolyn -] 5 mg PO DAILY@0930 tablet 10/12/18 Rosuvastatin [Crestor -] 20 mg PO HS tablet 10/12/18 Sitagliptin Phosphate [Januvia -] 25 mg PO 0700 #30 tablet 10/12/18 levoFLOXacin [Levaquin -] 500 mg PO DAILY #10 tablet 10/12/18 Review of Systems - Review of Systems Constitutional: Yes: Fever. No: Chills HEENTM: No: Recent change in vision, Throat Pain Respiratory: Yes: Productive cough. No: Shortness of Breath Cardiac (ROS): No: Chest Pain, Palpitations ABD/GI: No: Constipated, Diarrhea, Nausea, Vomiting Neurological: No: Numbness, Tingling <Tonja Machado - Last Filed: 10/15/18 09:16> *Physical Exam - Vital Signs Last Vital Signs Temp Pulse Resp BP Pulse Ox 101.3 F H 83 20 116/55 L 94 L 10/07/18 16:38 10/07/18 15:24 10/07/18 15:24 10/07/18 15:24 10/07/18 15:30 <Yoanna Patricia - Last Filed: 10/07/18 18:10> - Vital Signs Last Vital Signs Temp Pulse Resp BP Pulse Ox 100 F H 83 20 116/55 L 94 L 10/07/18 15:24 10/07/18 15:24 10/07/18 15:24 10/07/18 15:24 10/07/18 15:30 - Physical Exam General Appearance: Yes: Appropriately Dressed HEENT: positive: Normal Voice Neck: positive: Trachea midline, Supple Respiratory/Chest: positive: Other (decreased breath sounds B/L w/o wheeze or crackle) Cardiovascular: positive: Other (2+ pitting edema in B/L LE; ? faint systolic murmur) Gastrointestinal/Abdominal: positive: Normal Bowel Sounds, Soft Extremity: positive: Normal Capillary Refill, Normal Inspection Neurologic: positive: guest relations receptionist II-XII NML intact, Fully Oriented, Alert. negative: Confused, Disoriented <JeannetteTonja - Last Filed: 10/15/18 09:16> Heart Score/ECG Review - ECG Impressions Comment:: 10/15/18 09:12 NSR HR 80, LAD, normal intervals, no ELMER/STD - no acute changes from previous EKG <JeannetteTonja - Last Filed: 10/15/18 09:16> ED Treatment Course - LABORATORY CBC & Chemistry Diagram: 10/07/18 16:11 10/07/18 16:11 - ADDITIONAL ORDERS Additional order review: Laboratory Results 10/07/18 10/07/18 16:11 16:11 PT with INR Cancelled INR Cancelled Sodium 139 Potassium 4.6 Chloride 104 Carbon Dioxide 27 Anion Gap 8 BUN 37.2 H Creatinine 1.7 H Est GFR (CKD-EPI)AfAm 34.32 Est GFR (CKD-EPI)NonAf 29.61 Random Glucose 183 H Calcium 8.6 Magnesium 2.3 Total Bilirubin 0.6 AST 32 ALT 21 Alkaline Phosphatase 55 Troponin I < 0.02 Total Protein 6.4 Albumin 3.2 L 10/07/18 16:11 RBC 4.11 MCV 88.9 MCHC 31.9 L RDW 16.7 H MPV 8.9 Neutrophils % 92.1 H D Lymphocytes % 4.1 L D Monocytes % 3.0 L Eosinophils % 0.5 D Basophils % 0.3 - RADIOLOGY Radiology Studies Ordered: Category Date Time Status CHEST PA & LAT [RAD] Stat Radiology 10/07/18 15:46 Taken - Medications Given in the ED: ED Medications Discontinued Medications Generic Name Dose Route Start Last Admin Trade Name Freq PRN Reason Stop Dose Admin Acetaminophen 1,000 mg 10/07/18 16:59 10/07/18 17:50 Ofirmev Injection - IVPB 10/07/18 17:00 1,000 mg ONCE ONE Administration <Yoanna Patricia - Last Filed: 10/07/18 18:10> - LABORATORY CBC & Chemistry Diagram: 10/10/18 06:43 10/12/18 05:30 - RADIOLOGY Radiology Studies Ordered: Category Date Time Status HEAD CT WITHOUT CONTRAST [CT] Stat CT Scan 10/07/18 16:14 Ordered <Tonja Machado - Last Filed: 10/15/18 09:16> Medical Decision Making - Medical Decision Making 73 year old female with resolved episode of confusion. H/o productive cough. Febrile and hypoxic (SpO2 92%) on RA. Frontal diagnosis: PNA, COPD exacerbation, Viral syndrome, also consider r/o ACS and PE. Plan: Troponin, EKG, CXR, basic labs. Will also obtain Head CT to r/o acute bleed/ischemia. Reassess. ED Course: Troponin (-) x1 Head CT negative CXR shows cardiomegaly c/w previous CXR EKG shows no acute ischemic changes as documented in EKG section of EMR Patient VS improved, however continues to require O2 NC Will admit patient for hypoxia, fever; clinical suspicion for AMS 2/2 to hypoxia vs. fever CAP Treatment initiated Patient and patient's family counseled on plan of care, amenable to admission <Tonja Machado - Last Filed: 10/15/18 09:16> *DC/Admit/Observation/Transfer - Discharge Dispostion Decision to Admit order: Yes Decision to Admit order Date/Time: Decision to Admit Order Category Date Time Status Decision to Admit to Hospital Routine Admission 10/07/18 18:09 Ordered <Yoanna Patricia - Last Filed: 10/07/18 18:10> <Tonja Machado - Last Filed: 10/15/18 09:16> Diagnosis at time of Disposition: Acute respiratory failure with hypoxia, Pneumonia - Discharge Dispostion Disposition: HOME Condition at time of disposition: Stable
[2018-10-07 16:21] LABS: BASO % 0.3 % (0-2.0); EOS % 0.5 % (0-4.5); HEMATOCRIT 36.6 % (32.4-45.2); HEMOGLOBIN 11.7 GM/dL (10.7-15.3); LYMPH % 4.1 % (8-40); MCH 28.4 pg (25.7-33.7); MCHC 31.9 g/dl (32.0-36.0); MEAN CELL VOLUME 88.9 fl (80-96); MEAN PLT VOLUME 8.9 fl (7.5-11.1); NEUT % 92.1 % (42.8-82.8); PLATELET COUNT 207 K/MM3 (134-434); RBC 4.11 M/mm3 (3.60-5.2); RDW 16.7 % (11.6-15.6); WHITE BLOOD COUNT 9.8 K/mm3 (4.0-10.0)
[2018-10-07 16:50] LABS: ALBUMIN 3.2 g/dl (3.4-5.0); ALK PHOS 55 U/L (45-117); ANION GAP 8 MMOL/L (8-16); BILIRUBIN,TOTAL 0.6 mg/dL (0.2-1); BLOOD UREA NITROGEN 37.2 mg/dL (7-18); CALCIUM 8.6 mg/dL (8.5-10.1); CHLORIDE 104 mmol/L (98-107); CO2 27 mmol/L (21-32); CREATININE 1.7 mg/dL (0.55-1.3); GLUCOSE,RANDOM 183 mg/dL (74-106); MAGNESIUM 2.3 mg/dL (1.8-2.4); POTASSIUM 4.6 mmol/L (3.5-5.1); SGOT/AST 32 U/L (15-37); SGPT/ALT 21 U/L (13-61); SODIUM 139 mmol/L (136-145); TOT PROT 6.4 g/dl (6.4-8.2)
[2018-10-07 16:56] LABS: ANISOCYTOSIS 0; MACROCYTOSIS 0; PLATELET ESTIMATE NORMAL
[2018-10-07] MEDS ORDERED: ACETAMINOPHEN 1000 MG/100 ML VIAL (NON FORMULARY) IVPB ONE (16:59)
[2018-10-07] MEDS ORDERED: ACETAMINOPHEN INJECTION 100 ML IVPB ONE (17:07)
--- NOTE | 2018-10-07 17:39 | PDOC ---
Documentation entered by Zeenat Holloway SCRIBE, acting as scribe for Yoanna Patricia MD. Yoanna Patricia MD: This documentation has been prepared by the Amie nixon Adrianna, SCRIBE, under my direction and personally reviewed by me in its entirety. I confirm that the documentation accurately reflects all work, treatment, procedures, and medical decision making performed by me. Attending Attestation - Resident Resident Name: Tonja Machado - ED Attending Attestation I have performed the following: I have examined & evaluated the patient, The case was reviewed & discussed with the resident, I agree w/resident's findings & plan - HPI HPI: 73 y/o female, with past medical history of CHF, Hypertension, Hypertriglyceridemia, IDDM, Hypothyroidism, Hyperuricemia, Gout, and Obesity, who presents with SOB and AMS/ confusion x 1 day. Patients family notes the patient was not feeling well earlier today, and she reports a productive cough ( unsure of what color). Family states she was dozing off, shivering/rigors, and not making sense when speaking. Upon EMS arrival, patient was found to be febrile. No recent abx use, no recent hospitalization. No sick contacts or travel. No new changes in medications. No suspicious food intake Allergies: Shellfish Past Medical History: Hypertension, IDDM, Hypothyroidism, Hyperuricemia, and Obesity Social history: Lives with family. No tobacco, ETOH or drug use. Surgical history: Appendectomy, cholecystectomy Meds: as documented in EMR PMD: Dr. Vamshi Rogers 10/07/18 18:03 10/07/18 18:11 - Physicial Exam PE: Agree with the resident's HPI and PE as documented in the electronic medical record. NAD, well appearing, alert, clear speech, oriented appropriately now. EOMI, PERRL, nl conjunctiva, anicteric; neck supple.+On nasal cannula. no respiratory distress, lungs with decreased BS in bilateral roca, poor inspiratory effort, RRR, abdomen soft obese, nontender. Back nontender. JANE x4, no focal neuro deficits. +2+ pitting edema of the bilateral lower extremities. normal color for ethnicity, WWP. 10/07/18 18:04 10/07/18 18:15 - Medical Decision Making 10/07/18 17:38 See HPI for details. Prior notes reviewed, including admissions, discharges and consultations. Vital signs reviewed, +febrile, hypoxic 92% on RA given supp O2. DDx SOB: ACS, PE, PTX, CHF, COPD exac, pulmonary edema, pleurisy, pneumonia, viral syndrome. effusion. anemia, electrolyte/metabolic derangements. laboratory results and imaging reviewed, basic labs and lytes wnl, notable for stable creatinine function, troponin is negative, electrolyte within normal limits. No leukocytosis. normal lytes.. CT head unremarkable Chest x-ray is limited due to habitus and poor inspiratory effort, cardiomegaly , interstitial findings. Cardiac panel_negative EKG normal sinus rhythm at 80 bpm, left axis deviation, no interval abnormalities, narrow QRS, ST and T wave segments and morphology normal. Nonspecific T wave abnormalities ED course' -IV tylenol for fever, abx for presumed pneumonia - ceftriaxone/azithromycin for CAP coverage gentle fluids 1L given her hypovolemia/flat IVC, preserved EF on bedside limited echo no fluids, h/o CHF. cultures pending, sputum and blood. lactic normal repeat VS improved, on supp O2 likely initial delirium from fever, now normal mental status. admit for pna, fever, acute respiratory failure 2/2 hypoxia/infection admit to Dr Rogers 10/07/18 18:14 10/07/18 18:16 10/07/18 22:41 Heart Score/ECG Review #1 ECG reviewed & interpreted by me at: 15:20 General ECG Interpretation: Sinus Rhythm, Normal Rate, Normal Intervals Compared to previous ECG there are: No significant change 10/07/18 18:15 EKG normal sinus rhythm at 80 bpm, left axis deviation, no interval abnormalities, narrow QRS, ST and T wave segments and morphology normal. Nonspecific T wave abnormalities ED Treatment Course - LABORATORY CBC & Chemistry Diagram: 10/07/18 16:11 10/07/18 16:11 - ADDITIONAL ORDERS Additional order review: Laboratory Results 10/07/18 10/07/18 16:11 16:11 PT with INR Cancelled INR Cancelled Sodium 139 Potassium 4.6 Chloride 104 Carbon Dioxide 27 Anion Gap 8 BUN 37.2 H Creatinine 1.7 H Est GFR (CKD-EPI)AfAm 34.32 Est GFR (CKD-EPI)NonAf 29.61 Random Glucose 183 H Calcium 8.6 Magnesium 2.3 Total Bilirubin 0.6 AST 32 ALT 21 Alkaline Phosphatase 55 Troponin I < 0.02 Total Protein 6.4 Albumin 3.2 L 10/07/18 16:11 RBC 4.11 MCV 88.9 MCHC 31.9 L RDW 16.7 H MPV 8.9 Neutrophils % 92.1 H D Lymphocytes % 4.1 L D Monocytes % 3.0 L Eosinophils % 0.5 D Basophils % 0.3 - RADIOLOGY Radiology Studies Ordered: EXAM#: TYPE/EXAM: RESULT: [id number] CT/HEAD CT WITHOUT CONTRAST Evaluate for confusion Impression Mild volume loss and periventricular chronic microvascular ischemic disease changes. No gross acute intracranial pathology is identified. Reported By: Wilton Medina MD 10/07/18 17:56 - Medications Given in the ED: ED Medications Discontinued Medications Generic Name Dose Route Start Last Admin Trade Name Freq PRN Reason Stop Dose Admin Acetaminophen 1,000 mg 10/07/18 16:59 10/07/18 17:50 Ofirmev Injection - IVPB 10/07/18 17:00 1,000 mg ONCE ONE Administration Procedures - Bedside Ultrasound Bedside Ultrasound: Cardiac Remarks: 10/07/18 18:13 POCUS echo and thoracic exam performed and documented/saved, indication includes chest pain/dyspnea. views obtained (PSLA, PSS, A4, SX, IVC, bilateral lung roca). Findings include normal EF on visual estimation, no pericardial or pleural effusion, primarily A lines, no FWMA, flat IVC with >50% collapse. Normal aortic root <4cm. RV<LV. Impression: no acute findings; hypovolemia/ dehydration.
[2018-10-07] MEDS ORDERED: CEFTRIAXONE 1,000 MG in DEXTROSE 5%-WATER - 50 ML IVPB ONE (17:40)
[2018-10-07] MEDS ORDERED: AZITHROMYCIN 500 MG TABLET PO ONE (17:40)
[2018-10-07] MEDS ORDERED: AZITHROMYCIN 250 MG TABLET ONE (17:59)
[2018-10-07] MEDS ORDERED: CEFTRIAXONE 1 GM/50 ML BAG ONE (17:59)
[2018-10-07] MEDS ORDERED: SODIUM CHLORIDE 0.9% 500 ML INFUS.BAG IV ONE (18:09)
[2018-10-08] MEDS: GABAPENTIN 300 MG CAPSULE (FP) PO SCH ×2 (01:30→21:31)
[2018-10-08] MEDS: CARVEDILOL 6.25 MG TABLET (FP) PO SCH ×3 (01:30→21:32)
[2018-10-08] MEDS: ACETAMINOPHEN 325 MG TABLET (FP) PO PRN ×2 (03:04→12:48)
[2018-10-08] MEDS: LEVOTHYROXINE NA 50 MCG TABLET (FP) PO SCH (06:25)
[2018-10-08] MEDS: INSULIN (NOVOLOG MIX 70/30) 100 UNITS/ML MDV SQ SCH ×2 (08:21→16:54)
[2018-10-08] MEDS ORDERED: PT OWN MED DRAWER 7, Y5N ONE ×2 (09:07→09:10)
[2018-10-08] MEDS ORDERED: cefTRIAXone SODIUM 1 GM VIAL ONE (09:08)
[2018-10-08] MEDS ORDERED: DEXTROSE 5%-WATER - 50 ML IVPB ONE (09:08)
[2018-10-08] MEDS: METOLAZONE 5 MG TABLET PO SCH (09:16)
[2018-10-08] MEDS: amLODIPine BESYLATE 5 MG TABLET (FP) PO SCH (09:20)
[2018-10-08] MEDS: ALLOPURINOL 100 MG TABLET (FP) PO SCH (09:20)
[2018-10-08] MEDS: ASPIRIN 81 MG CHEWABLE TABLETS PO SCH (09:20)
--- NOTE | 2018-10-08 09:20 | CON.ID ---
Consult Consult Specialty:: infectious diseases Referred by:: Reason for Consultation:: ams,r/o pna - History of Present Illness Chief Complaint: cough,ams History of Present Illness: 73 y/o female, with past medical history of CHF, Hypertension, Hypertriglyceridemia, IDDM, Hypothyroidism, Hyperuricemia, Gout, and Obesity, admitted with SOB and AMS/ confusion x 1 day. Patients family notes the patient was not feeling well earlier today, and she reports a productive cough ( unsure of what color). Family states she was dozing off, shivering/rigors, and not making sense when speaking. Upon EMS arrival, patient was found to be febrile. she does not recollect what happened currently patient is feeling much better still requiring oxygen - History Source History Provided By: Patient, Medical Record Limitations to Obtaining History: Other (ams) - Past Medical History Cardio/Vascular: Yes: HTN, Hyperlipdemia Endocrine: Yes: Diabetes Mellitus - Alcohol/Substance Use Hx Alcohol Use: No - Smoking History Smoking history: Never smoked Have you smoked in the past 12 months: No Home Medications - Allergies Allergies/Adverse Reactions: Allergies Allergy/AdvReac Type Severity Reaction Status Date / Time shellfish derived Allergy Verified 10/07/18 15:27 - Home Medications Home Medications: Ambulatory Orders Alendronate Sodium [Fosamax] 10 mg PO WEEKLY 09/19/15 Allopurinol [Zyloprim -] 100 mg PO DAILY 09/19/15 Gabapentin [Neurontin -] 300 mg PO HS 09/19/15 Sitagliptin Phos/Metformin HCl [Janumet 50-1,000 mg Tablet] 1 each PO HS Insulin (Novolog 70/30) [Novolog Mix 70/30 Flexpen -] 20 units SQ BIDAC Amlodipine Besylate [Norvasc -] 5 mg PO DAILY tablet 08/21/17 Aspirin [ASA -] 81 mg PO DAILY tab.chew 08/21/17 Carvedilol [Coreg -] 6.25 mg PO BID tablet 08/21/17 Levothyroxine [Synthroid -] 50 mcg PO DAILY@0700 tablet 08/21/17 Empagliflozin [Jardiance] 0 mg PO DAILY 10/07/18 Furosemide 40 mg PO DAILY 10/07/18 Metolazone [Zaroxolyn -] 5 mg PO DAILY 10/07/18 Rosuvastatin [Crestor -] 20 mg PO DAILY 10/07/18 Icosapent Ethyl [Vascepa] 1 gm PO BID 10/08/18 Review of Systems - Review of Systems Constitutional: reports: Chills, Fever Eyes: reports: No Symptoms HENT: reports: No Symptoms Neck: reports: No Symptoms Cardiovascular: reports: No Symptoms Respiratory: reports: Cough, Other (sputum production) Gastrointestinal: reports: No Symptoms Genitourinary: reports: No Symptoms Neurological: reports: Change in LOC, Confusion Endocrine: reports: No Symptoms Hematology/Lymphatic: reports: No Symptoms Psychiatric: reports: No Symptoms Physical Exam Vital Signs: Vital Signs Temperature 98.7 F 10/08/18 08:37 Pulse Rate 73 10/08/18 08:37 Respiratory Rate 10/08/18 08:37 Blood Pressure 126/73 10/08/18 08:37 O2 Sat by Pulse Oximetry (%) 93 L 10/08/18 03:00 Constitutional: Yes: Well Nourished, No Distress, Calm Eyes: Yes: Conjunctiva Clear Neck: Yes: Supple, Trachea Midline Cardiovascular: Yes: Regular Rate and Rhythm Respiratory: Yes: On Nasal O2, Poor Air Entry, Other (crackles) Gastrointestinal: Yes: Normal Bowel Sounds, Soft Musculoskeletal: Yes: WNL Extremities: Yes: WNL Neurological: Yes: Alert, Oriented Psychiatric: Yes: Alert, Oriented Labs: CBC, BMP 10/07/18 16:11 10/07/18 16:11 Imaging - Results Chest X-ray: Report Reviewed, Image Reviewed Cat Scan: Report Reviewed, Image Reviewed Assessment/Plan this patient coming in with cough ams blood cx are still pending will continue ceftriaxone will send urine cx on the patient await for all the cx reports resp support rest as per the team
[2018-10-08] MEDS: CEFTRIAXONE 1 GM in DEXTROSE 5%-WATER - 50 ML IVPB SCH (09:21)
[2018-10-08] MEDS: AZITHROMYCIN 500 MG TABLET PO SCH (09:21)
[2018-10-08] MEDS: FUROSEMIDE 40 MG TABLET (FP) PO SCH (10:02)
--- NOTE | 2018-10-08 10:07 | HP ---
DATE OF ADMISSION: 10/07/2018 DATE OF DICTATION: 10/08/2018 HISTORY OF PRESENT ILLNESS: A 73-year-old female known to have diabetes, hypertension, morbid obesity, was brought by the family yesterday to the emergency room by ambulance when she was having chills at home. In the ER it was found that patient may have right lower lobe pneumonia, so got admitted. She is also known to have gout. When she came into the ER, she was confused and had problem in breathing also. PHYSICAL EXAMINATION: General: This morning, patient is awake, alert, oriented and not in distress. Vitals: BP 126/75, 73, temperature 98. HEENT: Unremarkable. Neck: Supple, no JVD. Lungs: Clear. Heart: S1, S2 normal, no S3, S4. Abdomen: Soft, nontender. Legs: No edema. Neurologic: Grossly normal. LABORATORY REPORT: WBC 9.8, hemoglobin 11.7, hematocrit 36.6. Chemistry: Sodium 139, potassium 4.6, chloride 104, CO2 27, BUN 37, creatinine 1.7. Lactic acid normal 1.6. Blood sugar 183. Hemoglobin A1c is 7.6. Chest x-ray showed infiltrate right lung in the mid lower area. IMPRESSION: 1. Right lower lobe pneumonia. 2. Diabetes. 3. Obesity. PLAN: IV antibiotics. Continue other medications. Will follow. EDDIE LEBRON M.D. [id number]
--- NOTE | 2018-10-08 10:43 | EKG ---
Test Reason : Blood Pressure : / mmHG Vent. Rate : 080 BPM Atrial Rate : 080 BPM P-R Int : 182 ms QRS Dur : 088 ms QT Int : 388 ms P-R-T Axes : 042 -51 038 degrees QTc Int : 447 ms NORMAL SINUS RHYTHM LEFT AXIS DEVIATION ANTERIOR INFARCT (CITED ON OR BEFORE 07-OCT-2018) ABNORMAL ECG WHEN COMPARED WITH ECG OF 13-AUG-2017 13:48, QUESTIONABLE CHANGE IN INITIAL FORCES OF LATERAL LEADS Confirmed by RAQUEL DURHAM MD ([id number]) on 10/08/2018 10:43:41 AM Referred By: Confirmed By:RAQUEL DURHAM MD
[2018-10-08] MEDS ORDERED: HALOPERIDOL LACTATE 5 MG/ML IM ONE (21:30)
[2018-10-08] MEDS: ROSUVASTATIN CA 20 MG TABLET (FP) PO SCH (21:32)
[2018-10-08] MEDS ORDERED: metFORMIN HCL 500 MG TABLET (FP) PO SCH (22:00)
[2018-10-09] MEDS: ACETAMINOPHEN 325 MG TABLET (FP) PO PRN ×3 (00:38→16:41)
[2018-10-09] MEDS: INSULIN (NOVOLOG MIX 70/30) 100 UNITS/ML MDV SQ SCH ×2 (06:45→16:44)
[2018-10-09] MEDS: LEVOTHYROXINE NA 50 MCG TABLET (FP) PO SCH (06:45)
[2018-10-09] MEDS ORDERED: PT OWN MED DRAWER 7, Y5N ONE (09:11)
[2018-10-09] MEDS ORDERED: cefTRIAXone SODIUM 1 GM VIAL ONE (09:12)
[2018-10-09] MEDS ORDERED: DEXTROSE 5%-WATER - 50 ML IVPB ONE ×3 (09:12→17:12)
[2018-10-09] MEDS: ASPIRIN 81 MG CHEWABLE TABLETS PO SCH (09:16)
[2018-10-09] MEDS: FUROSEMIDE 40 MG TABLET (FP) PO SCH (09:16)
[2018-10-09] MEDS: METOLAZONE 5 MG TABLET PO SCH (09:17)
[2018-10-09] MEDS: ALLOPURINOL 100 MG TABLET (FP) PO SCH (09:17)
[2018-10-09] MEDS: CARVEDILOL 6.25 MG TABLET (FP) PO SCH ×2 (09:17→22:04)
[2018-10-09] MEDS: amLODIPine BESYLATE 5 MG TABLET (FP) PO SCH (09:17)
[2018-10-09] MEDS: CEFTRIAXONE 1 GM in DEXTROSE 5%-WATER - 50 ML IVPB SCH (09:17)
[2018-10-09] MEDS: AZITHROMYCIN 500 MG TABLET PO SCH (09:18)
--- NOTE | 2018-10-09 12:26 | PN ---
Progress Note, Physician Chief Complaint: Wants go home History of Present Illness: Had fever this AM 101 Blood and urine culture grew Gm Neg bacilli,discussed with ID ,he will reevaluate - Current Medication List Current Medications: Active Medications Acetaminophen (Tylenol -) 650 mg PO Q6H PRN PRN Reason: FEVER OR PAIN Last Admin: 10/09/18 09:32 Dose: 650 mg Allopurinol (Zyloprim -) 100 mg PO DAILY [facility] Last Admin: 10/09/18 09:17 Dose: 100 mg Amlodipine Besylate (Norvasc -) 5 mg PO DAILY [facility] Last Admin: 10/09/18 09:17 Dose: 5 mg Aspirin (Asa -) 81 mg PO DAILY [facility] Last Admin: 10/09/18 09:16 Dose: 81 mg Azithromycin (Zithromax) 500 mg PO DAILY [facility] Last Admin: 10/09/18 09:18 Dose: 500 mg Carvedilol (Coreg -) 6.25 mg PO BID [facility] Last Admin: 10/09/18 09:17 Dose: 6.25 mg Furosemide (Lasix -) 40 mg PO DAILY [facility] Last Admin: 10/09/18 09:16 Dose: 40 mg Gabapentin (Neurontin -) 300 mg PO [facility] Last Admin: 10/08/18 21:31 Dose: 300 mg Ceftriaxone Sodium 1 gm/ (Dextrose) 50 mls @ 100 mls/hr IVPB DAILY [facility] Last Admin: 10/09/18 09:17 Dose: 100 mls/hr Insulin Aspart (Novolog Mix 70/30 Vial) 20 units SQ BIDI [facility] Last Admin: 10/09/18 06:45 Dose: 20 units Levothyroxine Sodium (Synthroid -) 50 mcg PO DAILY@0700 [facility] Last Admin: 10/09/18 06:45 Dose: 50 mcg Metformin HCl (Glucophage -) 1,000 mg PO [facility] Metolazone (Zaroxolyn -) 5 mg PO DAILY@0930 [facility] Last Admin: 10/09/18 09:17 Dose: 5 mg Rosuvastatin Calcium (Crestor -) 20 mg PO [facility] Last Admin: 10/08/18 21:32 Dose: 20 mg Sitagliptin Phosphate (Januvia -) 50 mg PO [facility] - Objective Vital Signs: Vital Signs Temperature 98.3 F 10/09/18 09:29 Pulse Rate 77 10/09/18 09:29 Respiratory Rate 20 10/09/18 09:29 Blood Pressure 141/68 10/09/18 09:29 O2 Sat by Pulse Oximetry (%) 97 10/09/18 09:00 Constitutional: Yes: No Distress Eyes: Yes: WNL HENT: Yes: WNL Neck: Yes: WNL Cardiovascular: Yes: WNL Respiratory: Yes: WNL Gastrointestinal: Yes: Normal Bowel Sounds ...Rectal Exam: Yes: Deferred Genitourinary: Yes: WNL Musculoskeletal: Yes: WNL Extremities: Yes: WNL Edema: No Peripheral Pulses WNL: Yes Labs: CBC, BMP 10/07/18 16:11 10/07/18 16:11 INR, PTT INR Cancelled 10/07/18 16:11 Assessment/Plan Wants to take shower
--- NOTE | 2018-10-09 13:00 | PN ---
Progress Note, Physician History of Present Illness: patient feels better no new issues - Current Medication List Current Medications: Active Medications Acetaminophen (Tylenol -) 650 mg PO Q6H PRN PRN Reason: FEVER OR PAIN Last Admin: 10/09/18 09:32 Dose: 650 mg Allopurinol (Zyloprim -) 100 mg PO DAILY [facility] Last Admin: 10/09/18 09:17 Dose: 100 mg Amlodipine Besylate (Norvasc -) 5 mg PO DAILY [facility] Last Admin: 10/09/18 09:17 Dose: 5 mg Aspirin (Asa -) 81 mg PO DAILY [facility] Last Admin: 10/09/18 09:16 Dose: 81 mg Azithromycin (Zithromax) 500 mg PO DAILY [facility] Last Admin: 10/09/18 09:18 Dose: 500 mg Carvedilol (Coreg -) 6.25 mg PO BID [facility] Last Admin: 10/09/18 09:17 Dose: 6.25 mg Furosemide (Lasix -) 40 mg PO DAILY [facility] Last Admin: 10/09/18 09:16 Dose: 40 mg Gabapentin (Neurontin -) 300 mg PO [facility] Last Admin: 10/08/18 21:31 Dose: 300 mg Piperacillin Sod/Tazobactam (Sod 3.375 gm/ Dextrose) 50 mls @ 100 mls/hr IVPB Q8H-IV [facility]; Protocol Insulin Aspart (Novolog Mix 70/30 Vial) 20 units SQ BIDI [facility] Last Admin: 10/09/18 06:45 Dose: 20 units Levothyroxine Sodium (Synthroid -) 50 mcg PO DAILY@0700 [facility] Last Admin: 10/09/18 06:45 Dose: 50 mcg Metformin HCl (Glucophage -) 1,000 mg PO [facility] Metolazone (Zaroxolyn -) 5 mg PO DAILY@0930 [facility] Last Admin: 10/09/18 09:17 Dose: 5 mg Rosuvastatin Calcium (Crestor -) 20 mg PO [facility] Last Admin: 10/08/18 21:32 Dose: 20 mg Sitagliptin Phosphate (Januvia -) 50 mg PO [facility] - Objective Vital Signs: Vital Signs Temperature 98.3 F 10/09/18 09:29 Pulse Rate 77 10/09/18 09:29 Respiratory Rate 20 10/09/18 09:29 Blood Pressure 141/68 10/09/18 09:29 O2 Sat by Pulse Oximetry (%) 97 10/09/18 09:00 Constitutional: Yes: No Distress, Calm Cardiovascular: Yes: S1, S2 Respiratory: Yes: Regular, CTA Bilaterally Gastrointestinal: Yes: Normal Bowel Sounds, Soft Musculoskeletal: Yes: WNL Extremities: Yes: WNL Neurological: Yes: Alert, Oriented Psychiatric: Yes: Alert, Oriented Labs: CBC, BMP 10/07/18 16:11 10/07/18 16:11 INR, PTT INR Cancelled 10/07/18 16:11 Assessment/Plan bacteremia uti fever ams plan will change abx to zosyn await for cx report repeat blood cx ordered rest as per the team
[2018-10-09] MEDS ORDERED: PIPERACILLIN/TAZOBACTAM 3.375 GM VIAL IVPB ONE ×2 (13:28→17:12)
[2018-10-09] MEDS: PIPERACILLIN/TAZOB 3.375 GM 3.375 GM in DEXTROSE 5%-WATER - 50 ML IVPB SCH ×2 (13:31→18:04)
[2018-10-09] MEDS: GABAPENTIN 300 MG CAPSULE (FP) PO SCH (22:04)
[2018-10-09] MEDS: ROSUVASTATIN CA 20 MG TABLET (FP) PO SCH (22:04)
[2018-10-10] MEDS ORDERED: PIPERACILLIN/TAZOBACTAM 3.375 GM VIAL IVPB ONE ×3 (01:01→16:49)
[2018-10-10] MEDS ORDERED: DEXTROSE 5%-WATER - 50 ML IVPB ONE ×3 (01:01→16:49)
[2018-10-10] MEDS: PIPERACILLIN/TAZOB 3.375 GM 3.375 GM in DEXTROSE 5%-WATER - 50 ML IVPB SCH ×3 (01:44→17:15)
[2018-10-10] MEDS: LEVOTHYROXINE NA 50 MCG TABLET (FP) PO SCH (06:58)
[2018-10-10] MEDS: INSULIN (NOVOLOG MIX 70/30) 100 UNITS/ML MDV SQ SCH ×2 (06:58→17:14)
[2018-10-10 08:14] LABS: HEMATOCRIT 33.3 % (32.4-45.2); HEMOGLOBIN 10.7 GM/dL (10.7-15.3); MCH 28.5 pg (25.7-33.7); MEAN CELL VOLUME 89.1 fl (80-96); PLATELET COUNT 145 K/MM3 (134-434); RBC 3.74 M/mm3 (3.60-5.2); RDW 16.2 % (11.6-15.6); WHITE BLOOD COUNT 8.2 K/mm3 (4.0-10.0)
[2018-10-10 08:15] LABS: BLOOD UREA NITROGEN 56.1 mg/dL (7-18); CALCIUM 8.3 mg/dL (8.5-10.1); CREATININE 1.9 mg/dL (0.55-1.3); POTASSIUM 3.5 mmol/L (3.5-5.1)
[2018-10-10] MEDS ORDERED: PT OWN MED DRAWER 7, Y5N ONE (09:19)
--- NOTE | 2018-10-10 09:37 | PN ---
Progress Note, Physician Chief Complaint: Feels OK History of Present Illness: Blood and urine culture + for Grm - bacilli,on Zosyn by ID - Current Medication List Current Medications: Active Medications Acetaminophen (Tylenol -) 650 mg PO Q6H PRN PRN Reason: FEVER OR PAIN Last Admin: 10/09/18 16:41 Dose: 650 mg Allopurinol (Zyloprim -) 100 mg PO DAILY [facility] Last Admin: 10/09/18 09:17 Dose: 100 mg Amlodipine Besylate (Norvasc -) 5 mg PO DAILY [facility] Last Admin: 10/09/18 09:17 Dose: 5 mg Aspirin (Asa -) 81 mg PO DAILY [facility] Last Admin: 10/09/18 09:16 Dose: 81 mg Azithromycin (Zithromax) 500 mg PO DAILY [facility] Last Admin: 10/09/18 09:18 Dose: 500 mg Carvedilol (Coreg -) 6.25 mg PO BID [facility] Last Admin: 10/09/18 22:04 Dose: 6.25 mg Furosemide (Lasix -) 40 mg PO DAILY [facility] Last Admin: 10/09/18 09:16 Dose: 40 mg Gabapentin (Neurontin -) 300 mg PO [facility] Last Admin: 10/09/18 22:04 Dose: 300 mg Piperacillin Sod/Tazobactam (Sod 3.375 gm/ Dextrose) 50 mls @ 100 mls/hr IVPB Q8H-IV [facility]; Protocol Last Admin: 10/10/18 01:44 Dose: 100 mls/hr Insulin Aspart (Novolog Mix 70/30 Vial) 20 units SQ BIDI [facility] Last Admin: 10/10/18 06:58 Dose: 20 units Levothyroxine Sodium (Synthroid -) 50 mcg PO DAILY@0700 [facility] Last Admin: 10/10/18 06:58 Dose: 50 mcg Metformin HCl (Glucophage -) 1,000 mg PO [facility] Metolazone (Zaroxolyn -) 5 mg PO DAILY@0930 [facility] Last Admin: 10/09/18 09:17 Dose: 5 mg Rosuvastatin Calcium (Crestor -) 20 mg PO [facility] Last Admin: 10/09/18 22:04 Dose: 20 mg Sitagliptin Phosphate (Januvia -) 50 mg PO [facility] - Objective Vital Signs: Vital Signs Temperature 99.6 F 10/10/18 06:00 Pulse Rate 100 H 10/10/18 06:00 Respiratory Rate 20 10/10/18 09:00 Blood Pressure 146/79 10/10/18 06:00 O2 Sat by Pulse Oximetry (%) 96 10/10/18 09:00 Constitutional: Yes: No Distress Eyes: Yes: WNL HENT: Yes: WNL Neck: Yes: WNL Cardiovascular: Yes: WNL Respiratory: Yes: WNL Gastrointestinal: Yes: WNL ...Rectal Exam: Yes: Deferred Genitourinary: Yes: WNL Breast(s): Yes: WNL Edema: No Neurological: Yes: Alert Psychiatric: Yes: Alert Labs: CBC, BMP 10/10/18 06:43 10/10/18 06:43 INR, PTT INR Cancelled 10/07/18 16:11 Assessment/Plan PT for ambulation
[2018-10-10] MEDS: FUROSEMIDE 40 MG TABLET (FP) PO SCH (10:35)
[2018-10-10] MEDS: METOLAZONE 5 MG TABLET PO SCH (10:35)
[2018-10-10] MEDS: ASPIRIN 81 MG CHEWABLE TABLETS PO SCH (10:35)
[2018-10-10] MEDS: amLODIPine BESYLATE 5 MG TABLET (FP) PO SCH (10:35)
[2018-10-10] MEDS: ALLOPURINOL 100 MG TABLET (FP) PO SCH (10:35)
[2018-10-10] MEDS: CARVEDILOL 6.25 MG TABLET (FP) PO SCH ×2 (10:35→21:29)
[2018-10-10] MEDS: AZITHROMYCIN 500 MG TABLET PO SCH (10:36)
--- NOTE | 2018-10-10 12:19 | PN ---
Progress Note, Physician History of Present Illness: stable doing well - Current Medication List Current Medications: Active Medications Acetaminophen (Tylenol -) 650 mg PO Q6H PRN PRN Reason: FEVER OR PAIN Last Admin: 10/09/18 16:41 Dose: 650 mg Allopurinol (Zyloprim -) 100 mg PO DAILY [facility] Last Admin: 10/10/18 10:35 Dose: 100 mg Amlodipine Besylate (Norvasc -) 5 mg PO DAILY [facility] Last Admin: 10/10/18 10:35 Dose: 5 mg Aspirin (Asa -) 81 mg PO DAILY [facility] Last Admin: 10/10/18 10:35 Dose: 81 mg Azithromycin (Zithromax) 500 mg PO DAILY [facility] Last Admin: 10/10/18 10:36 Dose: 500 mg Carvedilol (Coreg -) 6.25 mg PO BID [facility] Last Admin: 10/10/18 10:35 Dose: 6.25 mg Furosemide (Lasix -) 40 mg PO DAILY [facility] Last Admin: 10/10/18 10:35 Dose: 40 mg Gabapentin (Neurontin -) 300 mg PO [facility] Last Admin: 10/09/18 22:04 Dose: 300 mg Piperacillin Sod/Tazobactam (Sod 3.375 gm/ Dextrose) 50 mls @ 100 mls/hr IVPB Q8H-IV [facility]; Protocol Last Admin: 10/10/18 10:36 Dose: 100 mls/hr Insulin Aspart (Novolog Mix 70/30 Vial) 20 units SQ BIDI [facility] Last Admin: 10/10/18 06:58 Dose: 20 units Levothyroxine Sodium (Synthroid -) 50 mcg PO DAILY@0700 [facility] Last Admin: 10/10/18 06:58 Dose: 50 mcg Metolazone (Zaroxolyn -) 5 mg PO DAILY@0930 [facility] Last Admin: 10/10/18 10:35 Dose: 5 mg Rosuvastatin Calcium (Crestor -) 20 mg PO [facility] Last Admin: 10/09/18 22:04 Dose: 20 mg Sitagliptin Phosphate (Januvia -) 25 mg PO 0700 [facility] - Objective Vital Signs: Vital Signs Temperature 99.6 F 10/10/18 06:00 Pulse Rate 100 H 10/10/18 06:00 Respiratory Rate 20 10/10/18 09:00 Blood Pressure 146/79 10/10/18 06:00 O2 Sat by Pulse Oximetry (%) 96 10/10/18 09:00 Constitutional: Yes: No Distress, Calm Cardiovascular: Yes: Regular Rate and Rhythm Respiratory: Yes: Regular, CTA Bilaterally Gastrointestinal: Yes: Normal Bowel Sounds, Soft Musculoskeletal: Yes: WNL Extremities: Yes: WNL Neurological: Yes: Alert, Oriented Psychiatric: Yes: Alert, Oriented Labs: CBC, BMP 10/10/18 06:43 10/10/18 06:43 INR, PTT INR Cancelled 10/07/18 16:11 Assessment/Plan bacteremia uti fever ams plan ct abx await for cx report repeat blood cx rest as per the team
[2018-10-10] MEDS: sitaGLIPtin PHOSPHATE 50 MG TABLET PO SCH (12:25)
[2018-10-10 14:00] VITALS: BMI 43.6
[2018-10-10] MEDS: GABAPENTIN 300 MG CAPSULE (FP) PO SCH (21:29)
[2018-10-10] MEDS: ROSUVASTATIN CA 20 MG TABLET (FP) PO SCH (21:29)
[2018-10-11] MEDS ORDERED: PIPERACILLIN/TAZOBACTAM 3.375 GM VIAL IVPB ONE ×3 (01:09→16:51)
[2018-10-11] MEDS ORDERED: DEXTROSE 5%-WATER - 50 ML IVPB ONE ×3 (01:09→16:51)
[2018-10-11] MEDS: PIPERACILLIN/TAZOB 3.375 GM 3.375 GM in DEXTROSE 5%-WATER - 50 ML IVPB SCH ×3 (01:33→17:07)
[2018-10-11] MEDS: LEVOTHYROXINE NA 50 MCG TABLET (FP) PO SCH (06:35)
[2018-10-11] MEDS: INSULIN (NOVOLOG MIX 70/30) 100 UNITS/ML MDV SQ SCH ×2 (06:35→17:04)
[2018-10-11] MEDS: sitaGLIPtin PHOSPHATE 50 MG TABLET PO SCH (06:36)
[2018-10-11] MEDS ORDERED: PT OWN MED DRAWER 7, Y5N ONE ×2 (08:46→09:33)
[2018-10-11] MEDS: ALLOPURINOL 100 MG TABLET (FP) PO SCH (09:05)
[2018-10-11] MEDS: amLODIPine BESYLATE 5 MG TABLET (FP) PO SCH (09:05)
[2018-10-11] MEDS: ASPIRIN 81 MG CHEWABLE TABLETS PO SCH (09:05)
[2018-10-11] MEDS: CARVEDILOL 6.25 MG TABLET (FP) PO SCH ×2 (09:05→22:23)
--- NOTE | 2018-10-11 09:26 | PN ---
Progress Note, Physician Chief Complaint: Wants go home History of Present Illness: GNB septicemia on IV zosyn - Current Medication List Current Medications: Active Medications Acetaminophen (Tylenol -) 650 mg PO Q6H PRN PRN Reason: FEVER OR PAIN Last Admin: 10/09/18 16:41 Dose: 650 mg Allopurinol (Zyloprim -) 100 mg PO DAILY [facility] Last Admin: 10/11/18 09:05 Dose: 100 mg Amlodipine Besylate (Norvasc -) 5 mg PO DAILY [facility] Last Admin: 10/11/18 09:05 Dose: 5 mg Aspirin (Asa -) 81 mg PO DAILY [facility] Last Admin: 10/11/18 09:05 Dose: 81 mg Azithromycin (Zithromax) 500 mg PO DAILY [facility] Last Admin: 10/10/18 10:36 Dose: 500 mg Carvedilol (Coreg -) 6.25 mg PO BID [facility] Last Admin: 10/11/18 09:05 Dose: 6.25 mg Furosemide (Lasix -) 40 mg PO DAILY [facility] Last Admin: 10/10/18 10:35 Dose: 40 mg Gabapentin (Neurontin -) 300 mg PO [facility] Last Admin: 10/10/18 21:29 Dose: 300 mg Piperacillin Sod/Tazobactam (Sod 3.375 gm/ Dextrose) 50 mls @ 100 mls/hr IVPB Q8H-IV [facility]; Protocol Last Admin: 10/11/18 09:04 Dose: 100 mls/hr Insulin Aspart (Novolog Mix 70/30 Vial) 20 units SQ BIDI [facility] Last Admin: 10/11/18 06:35 Dose: 20 units Levothyroxine Sodium (Synthroid -) 50 mcg PO DAILY@0700 [facility] Last Admin: 10/11/18 06:35 Dose: 50 mcg Metolazone (Zaroxolyn -) 5 mg PO DAILY@0930 [facility] Last Admin: 10/10/18 10:35 Dose: 5 mg Rosuvastatin Calcium (Crestor -) 20 mg PO HS [facility] Last Admin: 10/10/18 21:29 Dose: 20 mg Sitagliptin Phosphate (Januvia -) 25 mg PO 0700 [facility] Last Admin: 10/11/18 06:36 Dose: 25 mg - Objective Vital Signs: Vital Signs Temperature 98.3 F 10/11/18 06:00 Pulse Rate 71 10/11/18 06:00 Respiratory Rate 20 10/11/18 06:00 Blood Pressure 141/68 10/11/18 06:00 O2 Sat by Pulse Oximetry (%) 95 10/10/18 20:16 Constitutional: Yes: No Distress Eyes: Yes: WNL HENT: Yes: WNL Neck: Yes: WNL Cardiovascular: Yes: WNL Respiratory: Yes: WNL Gastrointestinal: Yes: Normal Bowel Sounds ...Rectal Exam: Yes: Deferred Genitourinary: Yes: WNL Edema: No Neurological: Yes: Alert Labs: CBC, BMP 10/10/18 06:43 10/10/18 06:43 INR, PTT INR Cancelled 10/07/18 16:11 Assessment/Plan DC O2 by nasal canula
[2018-10-11] MEDS: METOLAZONE 5 MG TABLET PO SCH (09:35)
[2018-10-11] MEDS: AZITHROMYCIN 500 MG TABLET PO SCH (09:35)
[2018-10-11] MEDS: FUROSEMIDE 40 MG TABLET (FP) PO SCH (10:04)
--- NOTE | 2018-10-11 11:25 | PN ---
Progress Note, Physician History of Present Illness: Pt seen and examined, chart reviewed. She states she is feeling better, alert. Fever/chills resolved. Denies SOB/cough/dysuria. - Current Medication List Current Medications: Active Medications Acetaminophen (Tylenol -) 650 mg PO Q6H PRN PRN Reason: FEVER OR PAIN Last Admin: 10/09/18 16:41 Dose: 650 mg Allopurinol (Zyloprim -) 100 mg PO DAILY [facility] Last Admin: 10/11/18 09:05 Dose: 100 mg Amlodipine Besylate (Norvasc -) 5 mg PO DAILY [facility] Last Admin: 10/11/18 09:05 Dose: 5 mg Aspirin (Asa -) 81 mg PO DAILY [facility] Last Admin: 10/11/18 09:05 Dose: 81 mg Azithromycin (Zithromax) 500 mg PO DAILY [facility] Last Admin: 10/11/18 09:35 Dose: 500 mg Carvedilol (Coreg -) 6.25 mg PO BID [facility] Last Admin: 10/11/18 09:05 Dose: 6.25 mg Furosemide (Lasix -) 40 mg PO DAILY [facility] Last Admin: 10/11/18 10:04 Dose: 40 mg Gabapentin (Neurontin -) 300 mg PO HS [facility] Last Admin: 10/10/18 21:29 Dose: 300 mg Piperacillin Sod/Tazobactam (Sod 3.375 gm/ Dextrose) 50 mls @ 100 mls/hr IVPB Q8H-IV [facility]; Protocol Last Admin: 10/11/18 09:04 Dose: 100 mls/hr Insulin Aspart (Novolog Mix 70/30 Vial) 20 units SQ BIDI [facility] Last Admin: 10/11/18 06:35 Dose: 20 units Levothyroxine Sodium (Synthroid -) 50 mcg PO DAILY@0700 [facility] Last Admin: 10/11/18 06:35 Dose: 50 mcg Metolazone (Zaroxolyn -) 5 mg PO DAILY@0930 [facility] Last Admin: 10/11/18 09:35 Dose: 5 mg Rosuvastatin Calcium (Crestor -) 20 mg PO HS [facility] Last Admin: 10/10/18 21:29 Dose: 20 mg Sitagliptin Phosphate (Januvia -) 25 mg PO 0700 [facility] Last Admin: 10/11/18 06:36 Dose: 25 mg - Objective Vital Signs: Vital Signs Temperature 98.1 F 10/11/18 10:00 Pulse Rate 68 10/11/18 10:00 Respiratory Rate 20 10/11/18 10:00 Blood Pressure 139/78 10/11/18 10:00 O2 Sat by Pulse Oximetry (%) 94 L 10/11/18 09:00 Constitutional: Yes: No Distress, Calm Cardiovascular: Yes: Regular Rate and Rhythm Respiratory: Yes: CTA Bilaterally Gastrointestinal: Yes: Normal Bowel Sounds, Soft, Abdomen, Obese Genitourinary: Yes: WNL Musculoskeletal: Yes: WNL Integumentary: Yes: WNL Neurological: Yes: Alert, Oriented Labs: CBC, BMP 10/10/18 06:43 10/10/18 06:43 INR, PTT INR Cancelled 10/07/18 16:11 Microbiology 10/10/18 06:55 Blood - Peripheral Venous Blood Culture - Preliminary NO GROWTH OBTAINED AFTER 24 HOURS, INCUBATION TO CONTINUE FOR 4 DAYS. 10/10/18 06:43 Blood - Peripheral Venous Blood Culture - Preliminary NO GROWTH OBTAINED AFTER 24 HOURS, INCUBATION TO CONTINUE FOR 4 DAYS. 10/07/18 18:37 Blood - Peripheral Venous Blood Culture - Preliminary NO GROWTH OBTAINED AFTER 72 HOURS, INCUBATION TO CONTINUE FOR 2 DAYS. 10/08/18 10:40 Urine - Urine Clean Catch Urine Culture - Final Klebsiella Pneumoniae 10/07/18 18:37 Blood - Peripheral Venous Blood Culture - Final Klebsiella Pneumoniae - ....Imaging Chest X-ray: Report Reviewed Problem List - Problems (1) Acute respiratory failure with hypoxia Code(s): J96.01 - ACUTE RESPIRATORY FAILURE WITH HYPOXIA (2) Acute on chronic diastolic (congestive) heart failure Code(s): I50.33 - ACUTE ON CHRONIC DIASTOLIC (CONGESTIVE) HEART FAILURE (3) [id number] kidney injury Code(s): N17.9 - ACUTE KIDNEY FAILURE, UNSPECIFIED; N18.9 - CHRONIC KIDNEY DISEASE, UNSPECIFIED (4) Hyperuricemia Code(s): E79.0 - HYPERURICEMIA W/O SIGNS OF INFLAM ARTHRIT AND TOPHACEOUS DIS (5) Hypothyroidism Code(s): E03.9 - HYPOTHYROIDISM, UNSPECIFIED Qualifiers: Hypothyroidism type: unspecified Qualified Code(s): E03.9 - Hypothyroidism , unspecified (6) Insulin dependent diabetes mellitus Code(s): E11.9 - TYPE 2 DIABETES MELLITUS WITHOUT COMPLICATIONS; Z79.4 - GROUP HOME (CURRENT) USE OF INSULIN Assessment/Plan Klebsiella UTI/Bacteremia CHF ?PNA PRECIOUS on CKD IDDM Obesity HTN hypothyroidism -- repeat blood cultures negative 24h -- fevers/AMS resolved, -- Creatinine has risen, monitor -- If continues to improve will switch to oral antibiotics
[2018-10-11] MEDS: ROSUVASTATIN CA 20 MG TABLET (FP) PO SCH (22:22)
[2018-10-11] MEDS: GABAPENTIN 300 MG CAPSULE (FP) PO SCH (22:22)
[2018-10-12] MEDS ORDERED: PIPERACILLIN/TAZOBACTAM 3.375 GM VIAL IVPB ONE (00:57)
[2018-10-12] MEDS ORDERED: DEXTROSE 5%-WATER - 50 ML IVPB ONE (00:58)
[2018-10-12] MEDS: PIPERACILLIN/TAZOB 3.375 GM 3.375 GM in DEXTROSE 5%-WATER - 50 ML IVPB SCH ×2 (01:48→11:12)
[2018-10-12 02:37] VITALS: TEMP 98.2
[2018-10-12] MEDS: LEVOTHYROXINE NA 50 MCG TABLET (FP) PO SCH (06:18)
[2018-10-12] MEDS: sitaGLIPtin PHOSPHATE 50 MG TABLET PO SCH (06:18)
[2018-10-12] MEDS: INSULIN (NOVOLOG MIX 70/30) 100 UNITS/ML MDV SQ SCH (06:19)
[2018-10-12 07:36] LABS: BLOOD UREA NITROGEN 47.1 mg/dL (7-18); CALCIUM 8.6 mg/dL (8.5-10.1); CREATININE 1.8 mg/dL (0.55-1.3); POTASSIUM 3.5 mmol/L (3.5-5.1)
[2018-10-12] MEDS ORDERED: PT OWN MED DRAWER 7, Y5N ONE ×2 (08:05→09:25)
[2018-10-12] MEDS: ACETAMINOPHEN 325 MG TABLET (FP) PO PRN (08:06)
[2018-10-12] MEDS: ASPIRIN 81 MG CHEWABLE TABLETS PO SCH (10:04)
[2018-10-12] MEDS: CARVEDILOL 6.25 MG TABLET (FP) PO SCH (10:04)
[2018-10-12] MEDS: ALLOPURINOL 100 MG TABLET (FP) PO SCH (10:04)
[2018-10-12] MEDS: amLODIPine BESYLATE 5 MG TABLET (FP) PO SCH (10:04)
[2018-10-12] MEDS: AZITHROMYCIN 500 MG TABLET PO SCH (10:04)
[2018-10-12 11:23] VITALS: BP 152/92; PULSE 72
--- NOTE | 2018-10-12 11:34 | PN ---
Progress Note, Physician Chief Complaint: comfortable afebrile - Current Medication List Current Medications: Active Medications Acetaminophen (Tylenol -) 650 mg PO Q6H PRN PRN Reason: FEVER OR PAIN Last Admin: 10/12/18 08:06 Dose: 650 mg Allopurinol (Zyloprim -) 100 mg PO DAILY [facility] Last Admin: 10/12/18 10:04 Dose: 100 mg Amlodipine Besylate (Norvasc -) 5 mg PO DAILY [facility] Last Admin: 10/12/18 10:04 Dose: 5 mg Aspirin (Asa -) 81 mg PO DAILY [facility] Last Admin: 10/12/18 10:04 Dose: 81 mg Azithromycin (Zithromax) 500 mg PO DAILY [facility] Last Admin: 10/12/18 10:04 Dose: 500 mg Carvedilol (Coreg -) 6.25 mg PO BID [facility] Last Admin: 10/12/18 10:04 Dose: 6.25 mg Furosemide (Lasix -) 40 mg PO DAILY [facility] Last Admin: 10/11/18 10:04 Dose: 40 mg Gabapentin (Neurontin -) 300 mg PO [facility] Last Admin: 10/11/18 22:22 Dose: 300 mg Piperacillin Sod/Tazobactam (Sod 3.375 gm/ Dextrose) 50 mls @ 100 mls/hr IVPB Q8H-IV [facility]; Protocol Last Admin: 10/12/18 11:12 Dose: Not Given Insulin Aspart (Novolog Mix 70/30 Vial) 20 units SQ BIDI [facility] Last Admin: 10/12/18 06:19 Dose: 20 units Levofloxacin (Levaquin -) 500 mg PO DAILY [facility] Levothyroxine Sodium (Synthroid -) 50 mcg PO DAILY@0700 [facility] Last Admin: 10/12/18 06:18 Dose: 50 mcg Metolazone (Zaroxolyn -) 5 mg PO DAILY@0930 [facility] Last Admin: 10/11/18 09:35 Dose: 5 mg Rosuvastatin Calcium (Crestor -) 20 mg PO [facility] Last Admin: 10/11/18 22:22 Dose: 20 mg Sitagliptin Phosphate (Januvia -) 25 mg PO 0700 [facility] Last Admin: 10/12/18 06:18 Dose: 25 mg - Objective Vital Signs: Vital Signs Temperature 98.2 F 10/12/18 10:00 Pulse Rate 72 10/12/18 10:00 Respiratory Rate 18 10/12/18 10:00 Blood Pressure 152/92 10/12/18 10:00 O2 Sat by Pulse Oximetry (%) 95 10/12/18 10:00 Constitutional: Yes: No Distress, Calm Eyes: Yes: Conjunctiva Clear, EOM Intact HENT: Yes: Atraumatic, Normocephalic. No: Drooling Neck: Yes: Supple, Trachea Midline. No: Decreased ROM Cardiovascular: Yes: Regular Rate and Rhythm, Rub, S1, S2 Respiratory: Yes: Regular, CTA Bilaterally Gastrointestinal: Yes: Normal Bowel Sounds, Soft Genitourinary: No: Anuria, CVA Tenderness - Left, CVA Tenderness - Right Musculoskeletal: No: Back Pain, Joint Stiffness Extremities: No: Amputation, Calf Tenderness Edema: No Peripheral Pulses WNL: No Peripheral Pulses: Left Doralis Pedis: 1+, Right Dorsalis Pedis: 1+ Wound/Incision: Yes: Excoriated Neurological: Yes: Alert, Oriented, Aphasia ...Motor Strength: WNL, LUE, LLE, RUE, RLE Labs: CBC, BMP 10/10/18 06:43 10/12/18 05:30 INR, PTT INR Cancelled 10/07/18 16:11 Problem List - Problems (1) UTI due to Klebsiella species Assessment/Plan: Pansensitive on IV Zosyn will Switch to Levo 500 todaty and 250 daily for 10 days Code(s): N39.0 - URINARY TRACT INFECTION, SITE NOT SPECIFIED; B96.1 - KLEBSIELLA PNEUMONIAE [facility] (2) Sepsis secondary to UTI Assessment/Plan: On IV Zosyn will switch to Levof;loxacin Code(s): A41.9 - SEPSIS, UNSPECIFIED ORGANISM; N39.0 - URINARY TRACT INFECTION, SITE NOT SPECIFIED (3) CHF (congestive heart failure) Code(s): I50.9 - HEART FAILURE, UNSPECIFIED Qualifiers: Heart failure type: unspecified Heart failure chronicity: unspecified Qualified Code(s): I50.9 - Heart failure, unspecified (4) Hypothyroidism Assessment/Plan: On Levothyroxine Code(s): E03.9 - HYPOTHYROIDISM, UNSPECIFIED Qualifiers: Hypothyroidism type: unspecified Qualified Code(s): E03.9 - Hypothyroidism , unspecified (5) Mixed hyperlipidemia Assessment/Plan: on statin Code(s): E78.2 - MIXED HYPERLIPIDEMIA
[2018-10-12] MEDS: METOLAZONE 5 MG TABLET PO SCH (11:50)
[2018-10-12] MEDS: FUROSEMIDE 40 MG TABLET (FP) PO SCH (12:20)
--- NOTE | 2018-10-12 20:21 | DS ---
Physical Examination Vital Signs: Vital Signs Temperature 98.2 F 10/12/18 10:00 Pulse Rate 72 10/12/18 10:00 Respiratory Rate 18 10/12/18 10:00 Blood Pressure 152/92 10/12/18 10:00 O2 Sat by Pulse Oximetry (%) 95 10/12/18 10:00 Elderly F obese not in distress HEENT: Mm moist no anemia, PERRLA EOMI NECK: No JVd No Bruit CHEST: CTA B/L CVS: S1S2 R no m/g/r ABD: No distention, non tender Bs + EXT: No juan afeet, no calf tenderness, Pulses + 1 DEVOPS ENGINEER: AOX3 non focal Labs: CBC, BMP 10/10/18 06:43 10/12/18 05:30 Microbiology 10/07/18 18:37 Blood - Peripheral Venous Blood Culture - Final NO GROWTH AFTER 5 DAYS INCUBATION 10/10/18 06:55 Blood - Peripheral Venous Blood Culture - Preliminary NO GROWTH OBTAINED AFTER 48 HOURS, INCUBATION TO CONTINUE FOR 3 DAYS. 10/10/18 06:43 Blood - Peripheral Venous Blood Culture - Preliminary NO GROWTH OBTAINED AFTER 48 HOURS, INCUBATION TO CONTINUE FOR 3 DAYS. 10/08/18 10:40 Urine - Urine Clean Catch Urine Culture - Final Klebsiella Pneumoniae 10/07/18 18:37 Blood - Peripheral Venous Blood Culture - Final Klebsiella Pneumoniae Discharge Summary Reason For Visit: Altered Metal Status, UTI Sepsis , Toxic Metabolic Hospital Course: 73 y/o female, with past medical history of CHF, Hypertension, Hypertriglyceridemia, IDDM, Hypothyroidism, Hyperuricemia, Gout, and Obesity, admitted with SOB and AMS/ confusion x 1 day lab shows elevated TWBC, Urine and Blood Grew Kleibesella P , pansentive recived 4 days IV abx rpt blood cultures are -ve so far discussed with ID will DC on PO Levof;oxacin 500 mg daily for 10 days as per ID. Condition: Stable - Instructions Referrals: Vamshi Rogers MD [Primary Care Provider] - 2 Weeks Ajay Hogue MD [Staff Physician] - 2 Weeks Disposition: HOME - Home Medications Comprehensive Discharge Medication List: Ambulatory Orders Alendronate Sodium [Fosamax] 10 mg PO WEEKLY 09/19/15 Allopurinol [Zyloprim -] 100 mg PO DAILY 09/19/15 Gabapentin [Neurontin -] 300 mg PO HS 09/19/15 Insulin (Novolog 70/30) [Novolog Mix 70/30 Flexpen -] 20 units SQ BIDAC Amlodipine Besylate [Norvasc -] 5 mg PO DAILY tablet 08/21/17 Aspirin [ASA -] 81 mg PO DAILY tab.chew 08/21/17 Carvedilol [Coreg -] 6.25 mg PO BID tablet 08/21/17 Levothyroxine [Synthroid -] 50 mcg PO DAILY@0700 tablet 08/21/17 Empagliflozin [Jardiance] 0 mg PO DAILY 10/07/18 Furosemide 40 mg PO DAILY 10/07/18 Metolazone [Zaroxolyn -] 5 mg PO DAILY 10/07/18 Rosuvastatin [Crestor -] 20 mg PO DAILY 10/07/18 Icosapent Ethyl [Vascepa] 1 gm PO BID 10/08/18 Acetaminophen [Tylenol .Regular Strength -] 650 mg PO Q6H PRN tablet 10/12/18 Allopurinol [Zyloprim -] 100 mg PO DAILY tablet 10/12/18 Amlodipine Besylate [Norvasc -] 5 mg PO DAILY tablet 10/12/18 Aspirin [ASA -] 81 mg PO DAILY tab.chew 10/12/18 Carvedilol [Coreg -] 6.25 mg PO BID tablet 10/12/18 Furosemide [Lasix -] 40 mg PO DAILY tablet 10/12/18 Gabapentin [Neurontin -] 300 mg PO HS capsule 10/12/18 Insulin (Novolog 70/30) [Novolog Mix 70/30 Vial -] 20 units SQ BIDI units 10/12 Levothyroxine [Synthroid -] 50 mcg PO DAILY@0700 tablet 10/12/18 Metolazone [Zaroxolyn -] 5 mg PO DAILY@0930 tablet 10/12/18 Rosuvastatin [Crestor -] 20 mg PO HS tablet 10/12/18 Sitagliptin Phosphate [Januvia -] 25 mg PO 0700 #30 tablet 10/12/18 levoFLOXacin [Levaquin -] 500 mg PO DAILY #10 tablet 10/12/18
== END 2018-10-12 12:21 | disposition home or self-care (01) | DRG 689 ==
LOC: JER 15:05 → JERBED 18:09 → J4S 23:44
PROVIDERS: ADMIT Internal Medicine; ATTEND Internal Medicine
DX: N39.0 Urinary tract infection, site not specified (principal); G93.41 Metabolic encephalopathy; Z68.41 Body mass index [BMI] 40.0-44.9, adult; I50.32 Chronic diastolic (congestive) heart failure; N17.9 Acute kidney failure, unspecified; I13.0 Hypertensive heart and chronic kidney disease with heart failure and stage 1 through stage 4 chronic kidney disease, or unspecified chronic kidney disease; M10.9 Gout, unspecified; E03.9 Hypothyroidism, unspecified; Z79.4 Long term (current) use of insulin; E66.01 Morbid (severe) obesity due to excess calories; B96.1 Klebsiella pneumoniae [K. pneumoniae] as the cause of diseases classified elsewhere; E78.2 Mixed hyperlipidemia; E11.22 Type 2 diabetes mellitus with diabetic chronic kidney disease; N18.9 Chronic kidney disease, unspecified
CPT/HCPCS: 36415; 70450-TC; 71046-TC-FY; 80048; 80053; 82962; 83036; 83605; 83735; 84436; 84443; 84480; 84484; 85025; 85027; 87040; 87086; 87186; 93005; 93010; 97116-GP; 97161-GP; 99285-25; J0131

== ENCOUNTER 2020-03-23 15:31 | Emergency (ER) | payer OTHER ==
[2020-03-23 15:56] VITALS: BP 181/95; PULSE 74; TEMP 98.2; BMI 41.0
[2020-03-23] MEDS ORDERED: ACETAMINOPHEN 500 MG TABLET (FP) PO ONE (17:28)
[2020-03-23] MEDS ORDERED: ACETAMINOPHEN 500 MG TABLET (FP) ONE (17:29)
== END 2020-03-23 18:03 | disposition home or self-care (01) ==
LOC: JER 15:31
DX: S93.402A Sprain of unspecified ligament of left ankle, initial encounter (principal)
CPT/HCPCS: 73610-TC-LT-FY; 99284-25